=== PATIENT | male | born 1960 | race Caucasian/White ===

== ENCOUNTER → 2016-09-27 | Outpatient (CLI) | payer BC ==
[~2016-09-27] VITALS: Ht 182.9 cm; Wt 64.0 kg
[~2016-09-27] MED LIST: fluticasone INTNAS
[2016-09-27 13:28] VITALS: BP 111/73; PULSE 64; Ht 182.9 cm; Wt 64.0 kg
== END | disposition home or self-care (01) ==
LOC: C.NEUR 13:00
PROVIDERS: ATTEND Internal Medicine Pulmonary Disease
DX: G47.30 Sleep apnea, unspecified (principal)

== ENCOUNTER → 2017-05-19 | Day surgery (SDC) | payer BC ==
[2017-05-02 10:48] VITALS: BMI 27.0
[~2017-05-19] VITALS: Ht 182.9 cm; Wt 90.9 kg
[~2017-05-19] MED LIST changes: +LIDOCAINE HCL 2% 2 ML VIAL (20MG/ML) ONE; +PROPOFOL IV EMULSION 10 MG/ML 20 ML VIAL IV ONE; +SODIUM CHLORIDE 0.9% 500ML 500 ML IV ONE; +TADA10TA PO; -fluticasone INTNAS
[2017-05-19 13:59] VITALS: Ht 182.9 cm; Wt 90.9 kg
[2017-05-19 14:17] VITALS: TEMP 36.7
--- NOTE | 2017-05-19 14:35 | Endo History and Physical ---
History & Physical Date of Service: May 19, 2017. Chief Complaint: SCREENING Referring Physician: DR. THOMPSON History of Present Illness 56 yo CM who presents for screening colonoscopy. Past Medical History Reflux Past Surgical History Hx Cardiac Surgery: No Hx Internal Defibrillator: No Hx Pacemaker: No Hx Abdominal Surgery: Yes (HERNIA REPAIR) Hx of Implantable Prosthesis: No Hx Post-Op Nausea and Vomiting: No Hx Cancer Surgery: No Hx Thoracic Surgery: No Hx Orthopedic: Yes (LT KNEE ARTHROSCOPY) Hx Urinary Tract Surgery: No Family History None Social History Smoking Status: Never Smoker Hx Substance Use: No Hx Alcohol Use: No Allergies Coded Allergies: Sulfamethoxazole w/Trimethoprim (Verified Allergy, Unknown, Nauseated, 05/19/17) Current Medications Reported Home Medications Medications Dose Route/Sig Max Daily Dose Days Date Category Cialis (Tadalafil) 10 Mg Tab 10 Mg PO UD PRN 05/19/17 Reported Vital Signs Weight (Kilograms): 90.91 Height (Feet): 6 Height (Inches): 0 Date Time Temp Pulse Resp B/P (MAP) Pulse Ox O2 Delivery O2 Flow Rate FiO2 05/19/17 14:17 36.7 80 20 148/95 (112) 97 Room Air Physical Exam General Appearance: WD/WN, no apparent distress Respiratory/Chest: Auscultation: breath sounds normal Cardiovascular: Heart Auscultation: RRR Abdomen: Bowel Sounds: normal Inspection & Palpation: soft, non-distended, no tenderness, guarding & rebound Assessment and Plan Assessment: 56 yo CM who presents for screening colonoscopy. Plan: Proceed with colonoscopy.
--- NOTE | 2017-05-19 15:14 | Discharge Instructions ---
Endoscopy Patient Instructions Date / Procedure(s) Performed May 19, 2017. Colonoscopy Allergy Information Coded Allergies: Sulfamethoxazole w/Trimethoprim (Verified Allergy, Unknown, Nauseated, 05/19/17) Discharge Date / Findings May 19, 2017. Colon polyps Diverticulosis Internal hemorrhoids Medication Instructions OK to resume all medications today as prescribed Reported Home Medications Medications Dose Route/Sig Max Daily Dose Days Date Category Cialis (Tadalafil) 10 Mg Tab 10 Mg PO UD PRN 05/19/17 Reported Provider Instructions Activity Restrictions - No exercising or heavy lifting for 24 hours. - Do not drink alcohol the day of the procedure. - Do not drive a car or operate machinery until the day after the procedure. - Do not make any important decisions or sign important papers in 24 hours after the procedure. Following Day: - Return to full activity which may include returning to work/school. Diet Start your diet with liquids and light foods (jello, soup, juice, toast). Then eat your usual diet if not nauseated. Treatment For Common After Affects For mild abdominal pain, bloating, or excessive gas: - Rest - Eat lightly - Lie on right side Follow-Up Information Follow-up with DR. THOMPSON as scheduled Anesthesia Information What You Should Know You have had a procedure that required some medicine to reduce anxiety and discomfort. This treatment is called moderate sedation. After receiving the treatment, you may be sleepy, but you will be able to breathe on your own. The effects of the treatment may last for several hours. Follow these instructions along with Activity/Diet recommendations noted above: * Do NOT do anything where dizziness or clumsiness would be dangerous. * Rest quietly at home today, then you can be up and about tomorrow. * Have a responsible person stay with you the rest of today. * You may have had an I.V. today. If so, you may take the dressing off later today. Recommendations Call your doctor if: * Trouble breathing * Continuous vomiting for more than 24 hours * Temperature above 101 degrees * Severe abdominal pain or bloating * Pain not relieved by pain medicine ordered * There is increased drainage or redness from any incision * A large amount of rectal bleeding greater than 2-3 tablespoons. (If you had a polyp/s removed or have hemorrhoids, a small amount of blood - from the rectum is to be expected.) * You have any unanswered questions or concerns. IN THE EVENT OF A SERIOUS EMERGENCY, GO TO THE NEAREST EMERGENCY ROOM Your discharge instructions were prepared by provider Phil Juarez. Patient Instructions Signature Page Prashant Gonzalez Patient (or Guardian) Signature/Date: I have read and understand the instructions given to me by my caregivers. Caregiver/RN/Doctor Signature/Date: The above-named patient and/or guardian has received patient instructions on this date. + Original Patient Signature Page (only) stays with chart. Please make copy for patient.
--- NOTE | 2017-05-19 15:21 | GI REPORT ---
Procedure Date: 05/19/2017 2:48 PM Procedure: Colonoscopy Indications: Screening for colorectal malignant neoplasm Medicines: Monitored Anesthesia Care Complications: No immediate complications. Estimated Blood Loss: Estimated blood loss: none. Procedure: Pre-Anesthesia Assessment: - Prior to the procedure, a History and Physical was performed, and patient medications and allergies were reviewed. The patient's tolerance of previous anesthesia was also reviewed. The risks and benefits of the procedure and the sedation options and risks were discussed with the patient. All questions were answered, and informed consent was obtained. Prior Anticoagulants: The patient has taken no previous anticoagulant or antiplatelet agents. ASA Grade Assessment: II - A patient with mild systemic disease. After reviewing the risks and benefits, the patient was deemed in satisfactory condition to undergo the procedure. After I obtained informed consent, the scope was passed under direct vision. Throughout the procedure, the patient's blood pressure, pulse, and oxygen saturations were monitored continuously. The On-site loaner was introduced through the anus and advanced to the terminal ileum. The colonoscopy was performed without difficulty. The patient tolerated the procedure well. The quality of the bowel preparation was good. The terminal ileum, ileocecal valve, appendiceal orifice, and rectum were photographed. Findings: Four sessile polyps were found in the ascending colon. The polyps were 5 to 11 mm in size. These polyps were removed with a hot snare. Resection was complete, and retrieval was complete. To prevent bleeding after the polypectomy, two hemostatic clips were successfully placed (MR conditional). There was no bleeding at the end of the procedure. Multiple small-mouthed diverticula were found in the sigmoid colon. There was no evidence of diverticular bleeding. Non-bleeding internal hemorrhoids were found during retroflexion. The hemorrhoids were small. Impression: - Four 5 to 11 mm polyps in the ascending colon, removed with a hot snare. Resected and retrieved. Clips (MR conditional) were placed. - Diverticulosis in the sigmoid colon. There was no evidence of diverticular bleeding. - Non-bleeding internal hemorrhoids. Recommendation: - Resume previous diet. - Continue present medications. - Repeat colonoscopy for surveillance based on pathology results. - Return to primary care physician as previously scheduled. Phil Juarez DO 05/19/2017 3:20:31 PM This report has been signed electronically. Note Initiated On: 05/19/2017 2:48 PM I attest to the content of the Intraoperative Record and orders documented therein, exceptions below
--- NOTE | 2017-05-19 15:30 | Anesthesiology Progress Note ---
Anesthesia Post Op Note Date & Time May 19, 2017 at 15:30 Vital Signs Pain Intensity: 0 Vital Signs Past 12 Hours Date Time Temp Pulse Resp B/P (MAP) Pulse Ox O2 Delivery O2 Flow Rate FiO2 05/19/17 14:17 36.7 80 20 148/95 (112) 97 Room Air Notes Mental Status: alert / awake / arousable, participated in evaluation Pt Amnestic to Procedure: Yes Nausea / Vomiting: adequately controlled Pain: adequately controlled Airway Patency, RR, SpO2: stable & adequate BP & HR: stable & adequate Hydration State: stable & adequate Anesthetic Complications: no major complications apparent
[2017-05-19 15:57] VITALS: BP 125/85; PULSE 69; O2SAT 94
== END | disposition home or self-care (01) ==
LOC: C.GI 13:43
PROVIDERS: ATTEND Internal Medicine
DX: Z12.11 Encounter for screening for malignant neoplasm of colon (principal); D12.2 Benign neoplasm of ascending colon; K57.30 Diverticulosis of large intestine without perforation or abscess without bleeding; K64.8 Other hemorrhoids

== ENCOUNTER → 2017-09-12 | Outpatient (CLI) | payer BC ==
[~2017-09-12] MED LIST changes: -LIDOCAINE HCL 2% 2 ML VIAL (20MG/ML) ONE; -PROPOFOL IV EMULSION 10 MG/ML 20 ML VIAL IV ONE; -SODIUM CHLORIDE 0.9% 500ML 500 ML IV ONE
[2017-09-12 12:20] LABS: BASO % 0.5 %; BASO ABS # 0.02 K/uL (0-0.2); EOS ABS # 0.04 K/uL (0-0.5); HEMATOCRIT 40.4 % (42-52); HEMOGLOBIN 15.1 g/dL (14.0-18.0); LYMPH % 27.4 %; LYMPH ABS # 1.07 K/uL (1.2-3.4); MEAN CELL VOLUME 89.4 fL (80-100); MEAN CORPUSCULAR HEMOGLOBIN 33.4 pg (25-34); MEAN CORPUSCULAR HGB CONC 37.4 g/dl (32-36); MEAN PLATELET VOLUME 10.8 fL (7.4-10.4); MONO % 13.6 %; MONO ABS # 0.53 K/uL (0.11-0.59); NEUT % 57.5 %; NEUT ABS # 2.25 K/uL (1.4-6.5); PLATELET COUNT 113 K/uL (130-400); RED CELL DISTRIBUTION WIDTH CV 12.7 % (11.5-14.5); RED CELL DISTRIBUTION WIDTH SD 40.9 fL (36.4-46.3); WHITE BLOOD COUNT 3.91 K/uL (4.8-10.8)
[2017-09-12 12:49] LABS: ALBUMIN 3.9 gm/dl (3.4-5.0); ALT/SGPT 37 U/L (12-78); BLOOD UREA NITROGEN 17 mg/dl (7-18); CALCIUM 8.7 mg/dl (8.5-10.1); CARBON DIOXIDE 26 mmol/L (21-32); CHOLESTEROL 125 mg/dl (0-200); CREATININE 1.08 mg/dl (0.60-1.40); GLUCOSE 95 mg/dl (70-99); POTASSIUM 4.1 mmol/L (3.5-5.1); SODIUM 138 mmol/L (136-145)
[2017-09-12 12:58] LABS: ALKALINE PHOSPHATASE 74 U/L (45-117); AST/SGOT 24 U/L (15-37); LDL CHOLESTEROL CALCULATED 54 mg/dl
== END | disposition home or self-care (01) ==
LOC: C.LABBFT 10:54
PROVIDERS: ATTEND Physician Assistant Medical
DX: R42 Dizziness and giddiness (principal)

== ENCOUNTER → 2017-10-24 | Day surgery (SDC) | payer BC ==
[2017-10-10 07:37] VITALS: BMI 27.0
[~2017-10-24] VITALS: Ht 182.9 cm; Wt 90.9 kg
[~2017-10-24] MED LIST changes: +ATROPINE SULFATE 0.1 MG/ML 5ML SYR IV PRN; +EpHEDrine SULFATE INJ 50 MG/ML AMP IV PRN; +LIDOCAINE HCL 2% 2 ML VIAL (20MG/ML) ONE; +MIDAZOLAM HCL 1 MG/ML 2ML VIAL ONE; +PROPOFOL IV EMULSION 10 MG/ML 20 ML VIAL IV ONE; +RANI150T3 PO; +SODIUM CHLORIDE 0.9% 500ML 500 ML IV ONE
[2017-10-24 12:37] VITALS: Ht 182.9 cm; Wt 90.9 kg
--- NOTE | 2017-10-24 12:52 | Endo History and Physical ---
History & Physical Date of Service: Oct 24, 2017. Chief Complaint: ACID REFLUX Referring Physician: DR THOMPSON History of Present Illness 57 yo CM who presents for EGD secondary to GERD. Past Medical History Reflux Past Surgical History Hx Cardiac Surgery: No Hx Internal Defibrillator: No Hx Pacemaker: No Hx Abdominal Surgery: Yes (HERNIA REPAIR) Hx Post-Op Nausea and Vomiting: No Hx Cancer Surgery: No Hx Thoracic Surgery: No Hx Orthopedic: Yes (LT KNEE ARTHROSCOPY) Hx Urinary Tract Surgery: No Family History None Social History Smoking Status: Never Smoker Hx Substance Use: No Hx Alcohol Use: No Allergies Coded Allergies: Sulfamethoxazole w/Trimethoprim (Verified Adverse Reaction, Unknown, Nauseated, 10/24/17) Current Medications Reported Home Medications Medications Dose Route/Sig Max Daily Dose Days Date Category Zantac (Ranitidine HCl) 150 Mg Tab 150 Mg PO BID 10/10/17 Reported Cialis (Tadalafil) 10 Mg Tab 10 Mg PO UD PRN 05/19/17 Reported Vital Signs Weight (Kilograms): 90.91 Height (Feet): 6 Height (Inches): 0 Date Time Temp Pulse Resp B/P (MAP) Pulse Ox O2 Delivery O2 Flow Rate FiO2 10/24/17 12:42 36.8 74 18 141/81 (101) 97 Room Air Physical Exam General Appearance: WD/WN, no apparent distress Respiratory/Chest: Auscultation: breath sounds normal Cardiovascular: Heart Auscultation: RRR Abdomen: Bowel Sounds: normal Inspection & Palpation: soft, non-distended, no tenderness, guarding & rebound Assessment and Plan Assessment: 57 yo CM who presents for EGD secondary to GERD. Plan: Proceed with colonoscopy.
--- NOTE | 2017-10-24 13:49 | Discharge Instructions ---
Endoscopy Patient Instructions Date / Procedure(s) Performed Oct 24, 2017. EGD Allergy Information Coded Allergies: Sulfamethoxazole w/Trimethoprim (Verified Adverse Reaction, Unknown, Nauseated, 10/24/17) Discharge Date / Findings Oct 24, 2017. Reflux esophagitis s/p biopsies Medication Instructions OK to resume all medications today as prescribed Reported Home Medications Medications Dose Route/Sig Max Daily Dose Days Date Category Zantac (Ranitidine HCl) 150 Mg Tab 150 Mg PO BID 10/10/17 Reported Cialis (Tadalafil) 10 Mg Tab 10 Mg PO UD PRN 05/19/17 Reported Provider Instructions Activity Restrictions - No exercising or heavy lifting for 24 hours. - Do not drink alcohol the day of the procedure. - Do not drive a car or operate machinery until the day after the procedure. - Do not make any important decisions or sign important papers in 24 hours after the procedure. Following Day: - Return to full activity which may include returning to work/school. Diet Start your diet with liquids and light foods (jello, soup, juice, toast). Then eat your usual diet if not nauseated. Treatment For Common After Affects For mild abdominal pain, bloating, or excessive gas: - Rest - Eat lightly - Lie on right side Follow-Up Information Follow-up with DR THOMPSON as scheduled Anesthesia Information What You Should Know You have had a procedure that required some medicine to reduce anxiety and discomfort. This treatment is called moderate sedation. After receiving the treatment, you may be sleepy, but you will be able to breathe on your own. The effects of the treatment may last for several hours. Follow these instructions along with Activity/Diet recommendations noted above: * Do NOT do anything where dizziness or clumsiness would be dangerous. * Rest quietly at home today, then you can be up and about tomorrow. * Have a responsible person stay with you the rest of today. * You may have had an I.V. today. If so, you may take the dressing off later today. Recommendations Call your doctor if: * Trouble breathing * Continuous vomiting for more than 24 hours * Temperature above 101 degrees * Severe abdominal pain or bloating * Pain not relieved by pain medicine ordered * There is increased drainage or redness from any incision * A large amount of rectal bleeding greater than 2-3 tablespoons. (If you had a polyp/s removed or have hemorrhoids, a small amount of blood - from the rectum is to be expected.) * You have any unanswered questions or concerns. IN THE EVENT OF A SERIOUS EMERGENCY, GO TO THE NEAREST EMERGENCY ROOM Your discharge instructions were prepared by provider Phil Juarez. Patient Instructions Signature Page Prashant Gonzalez Patient (or Guardian) Signature/Date: I have read and understand the instructions given to me by my caregivers. Caregiver/RN/Doctor Signature/Date: The above-named patient and/or guardian has received patient instructions on this date. + Original Patient Signature Page (only) stays with chart. Please make copy for patient.
--- NOTE | 2017-10-24 13:49 | GI REPORT ---
Procedure Date: 10/24/2017 1:34 PM Procedure: Upper GI endoscopy Indications: Suspected gastro-esophageal reflux disease Medicines: Monitored Anesthesia Care Complications: No immediate complications. Estimated Blood Loss: Estimated blood loss: none. Procedure: Pre-Anesthesia Assessment: - Prior to the procedure, a History and Physical was performed, and patient medications and allergies were reviewed. The patient's tolerance of previous anesthesia was also reviewed. The risks and benefits of the procedure and the sedation options and risks were discussed with the patient. All questions were answered, and informed consent was obtained. Prior Anticoagulants: The patient has taken no previous anticoagulant or antiplatelet agents. ASA Grade Assessment: II - A patient with mild systemic disease. After reviewing the risks and benefits, the patient was deemed in satisfactory condition to undergo the procedure. After obtaining informed consent, the endoscope was passed under direct vision. Throughout the procedure, the patient's blood pressure, pulse, and oxygen saturations were monitored continuously. The Scope was introduced through the mouth, and advanced to the second part of duodenum. The upper GI endoscopy was accomplished without difficulty. The patient tolerated the procedure well. Findings: LA Grade A (one or more mucosal breaks less than 5 mm, not extending between tops of 2 mucosal folds) esophagitis with no bleeding was found. Biopsies were taken with a cold forceps for histology. The stomach was normal. The examined duodenum was normal. Impression: - LA Grade A reflux esophagitis. Biopsied. - Normal stomach. - Normal examined duodenum. Recommendation: - Resume previous diet. - Use Protonix (pantoprazole) 40 mg PO daily. - OK to use Zantac 150mg by mouth at bedtime as needed. - Await pathology results. - Return to primary care physician as previously scheduled. Phil Juarez DO 10/24/2017 1:48:54 PM This report has been signed electronically. Note Initiated On: 10/24/2017 1:34 PM I attest to the content of the Intraoperative Record and orders documented therein, exceptions below
[2017-10-24 14:20] VITALS: BP 128/80; PULSE 57; O2SAT 95
--- NOTE | 2017-10-24 14:27 | Anesthesiology Progress Note ---
Anesthesia Post Op Note Date & Time Oct 24, 2017 at 14:27 Vital Signs Pain Intensity: 0 Vital Signs Past 12 Hours Date Time Temp Pulse Resp B/P (MAP) Pulse Ox O2 Delivery O2 Flow Rate FiO2 10/24/17 14:20 57 18 128/80 (96) 95 Room Air 10/24/17 14:04 57 18 119/82 (94) 93 Room Air 10/24/17 13:49 36.0 62 16 138/94 (109) 93 Room Air 10/24/17 12:42 36.8 74 18 141/81 (101) 97 Room Air Notes Mental Status: alert / awake / arousable, participated in evaluation Pt Amnestic to Procedure: Yes Nausea / Vomiting: adequately controlled Pain: adequately controlled Airway Patency, RR, SpO2: stable & adequate BP & HR: stable & adequate Hydration State: stable & adequate Anesthetic Complications: no major complications apparent
== END | disposition home or self-care (01) ==
LOC: C.GI 12:25
PROVIDERS: ATTEND Internal Medicine
DX: K21.0 Gastro-esophageal reflux disease with esophagitis (principal); Z88.2 Allergy status to sulfonamides

== ENCOUNTER → 2017-11-04 | Outpatient (CLI) | payer BC ==
[~2017-11-04] VITALS: Ht 182.9 cm; Wt 94.1 kg
[~2017-11-04] MED LIST changes: -ATROPINE SULFATE 0.1 MG/ML 5ML SYR IV PRN; -EpHEDrine SULFATE INJ 50 MG/ML AMP IV PRN; -LIDOCAINE HCL 2% 2 ML VIAL (20MG/ML) ONE; -MIDAZOLAM HCL 1 MG/ML 2ML VIAL ONE; -PROPOFOL IV EMULSION 10 MG/ML 20 ML VIAL IV ONE; -SODIUM CHLORIDE 0.9% 500ML 500 ML IV ONE
[2017-11-04 15:42] VITALS: BP 121/73; PULSE 73; Ht 182.9 cm; Wt 94.1 kg
== END | disposition home or self-care (01) ==
LOC: C.NEUR 13:52
PROVIDERS: ATTEND Internal Medicine Pulmonary Disease
DX: G47.30 Sleep apnea, unspecified (principal)

== ENCOUNTER → 2017-12-07 | Outpatient (CLI) | payer BC ==
[~2017-12-07] MED LIST changes: +DOXY100C PO; +HYDR-5688 PO
--- NOTE | 2017-12-07 12:02 | DIAGNOSTIC IMAGING REPORT ---
[facility] CLINICAL HISTORY: SEVERE GROIN PAIN pain COMPARISON STUDY: No previous studies for comparison. FINDINGS: The soft tissues, psoas shadows, renal outlines and intestinal gas pattern appear normal. There is no evidence for bowel obstruction. No abnormal abdominal calcifications are seen. There are several pelvic calcifications which are most likely vasculature. I cannot entire exclude the possibility of the distal right ureteral calculus. IMPRESSION: Negative study overall. Several pelvic calcifications bilaterally the bulk of which are vascular. It is impossible to entirely exclude the possibility of a distal right ureteral calculus. If the patient remains symptomatic, a CT evaluation is suggested. The above report was generated using voice recognition software. It may contain grammatical, syntax or spelling errors. Electronically signed by: Tip Mojica M.D. 12/07/2017 12:01 PM Dictated Date/Time: 12/07/2017 11:59 AM
== END | disposition home or self-care (01) ==
LOC: C.RAD1850 11:28
PROVIDERS: ATTEND Physician Assistant
DX: R10.30 Lower abdominal pain, unspecified (principal)

== ENCOUNTER 2017-12-09 13:44 | Emergency (ER) | payer BC ==
[~2017-12-09] VITALS: Ht 182.9 cm; Wt 95.6 kg
[~2017-12-09 13:44] MED LIST changes: -DOXY100C PO; -HYDR-5688 PO
[2017-12-09 13:47] VITALS: TEMP 36.8; Ht 182.9 cm; Wt 95.6 kg
[2017-12-09] MEDS ORDERED: KETOROLAC TROMETHAMINE 30 MG/ML VIAL IV STA (14:06)
[2017-12-09] MEDS ORDERED: ONDANSETRON INJ 2 MG/ML 2 ML VIAL IV STA (14:06)
[2017-12-09] MEDS ORDERED: SODIUM CHLORIDE 0.9% 1000ML 1,000 ML IV ONE (14:15)
[2017-12-09] MEDS ORDERED: MoRPHine SULFATE 4 MG/ML 1 ML CARP\\VIAL IV PRN (14:15)
[2017-12-09 14:34] LABS: BASO % 0.9 %; BASO ABS # 0.03 K/uL (0-0.2); HEMOGLOBIN 14.6 g/dL (14.0-18.0); IG# 0.01 K/uL (0.00-0.02); LYMPH % 24.5 %; LYMPH ABS # 0.82 K/uL (1.2-3.4); MEAN CELL VOLUME 86.5 fL (80-100); MEAN CORPUSCULAR HEMOGLOBIN 32.4 pg (25-34); MEAN CORPUSCULAR HGB CONC 37.4 g/dl (32-36); MEAN PLATELET VOLUME 10.2 fL (7.4-10.4); MONO % 8.7 %; MONO ABS # 0.29 K/uL (0.11-0.59); NEUT % 62.6 %; PLATELET COUNT 105 K/uL (130-400); RED CELL DISTRIBUTION WIDTH CV 12.8 % (11.5-14.5); RED CELL DISTRIBUTION WIDTH SD 40.8 fL (36.4-46.3); WHITE BLOOD COUNT 3.35 K/uL (4.8-10.8)
[2017-12-09 14:54] LABS: ALBUMIN 4.1 gm/dl (3.4-5.0); CALCIUM 8.6 mg/dl (8.5-10.1); POTASSIUM 3.7 mmol/L (3.5-5.1)
[2017-12-09 14:57] LABS: TOTAL PROTEIN 6.8 gm/dl (6.4-8.2)
--- NOTE | 2017-12-09 15:05 | DIAGNOSTIC IMAGING REPORT ---
CT OF THE ABDOMEN AND PELVIS WITHOUT CONTRAST CLINICAL HISTORY: Right flank pain. COMPARISON STUDY: CT of the abdomen April 08, 2006, abdominal ultrasound January 08, 2014 and [facility] December 07, 2017. TECHNIQUE: Axial images of the abdomen and pelvis were obtained without IV contrast. Images were reviewed in the axial, sagittal, and coronal planes. A dose lowering technique was utilized adhering to the principles of ALARA. FINDINGS: Groundglass opacities within the lower lungs likely reflect atelectasis. No renal, ureteral or bladder calculi are present. There is no hydronephrosis or hydroureter. Water attenuation right renal lesions are suboptimally assessed on this unenhanced exam but likely reflect cysts. Borderline splenomegaly is noted. There are few calcified granulomas within the liver and the spleen. Unenhanced images of the adrenal glands and pancreas are normal. The caliber of small and large bowel are normal. The appendix is normal. There may be an endoscopic clip within the cecum. No pneumatosis, free air or portal venous gas is present. No suspicious osseous lesion is present. There is no lymphadenopathy or ascites. A 2.9 cm left common iliac artery aneurysm measured 2.1 cm on exam of April 08, 2016. A 2.2 cm right common iliac artery aneurysm measured [address] Caliber of the abdominal aorta is normal. IMPRESSION: 1. No urinary calculi or hydronephrosis. 2. No acute process within the abdomen or pelvis on unenhanced exam. Normal appendix. No bowel obstruction. 3. 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 2.2 cm right common iliac artery aneurysm. No rupture. Nonemergent vascular surgery consultation is recommended. Electronically signed by: Rajendra Cohen M.D. 12/09/2017 3:03 PM Dictated Date/Time: 12/09/2017 2:54 PM
--- NOTE | 2017-12-09 16:04 | DIAGNOSTIC IMAGING REPORT ---
ULTRASOUND TESTES AND SCROTUM CLINICAL HISTORY: Right testicular pain. COMPARISON STUDY: No priors. TECHNIQUE: Real-time, grayscale, and color Doppler sonography of the testes and scrotum is performed. Images are reviewed in the transverse and longitudinal planes. FINDINGS: The testes are normal in size and homogeneous in echotexture. The right testis measures 5.5 x 2.5 x 3.6 cm and the left testis measures 5.7 x 2.7 x 2.9 cm. No intratesticular mass is seen. Testicular blood flow is normal and symmetric. Normal Doppler waveforms are identified in both testes. The epididymal heads are normal in appearance. The right epididymal head measures 0.9 cm in length and the left epididymal head measures 1.1 cm in length. There is a small left-sided varicocele which measures up to 3 mm. No right-sided varicocele or hydrocele is seen. IMPRESSION: 1. Unremarkable sonographic assessment of the testes. 2. Small left-sided varicocele. Electronically signed by: Alexsander Moeller M.D. 12/09/2017 4:03 PM Dictated Date/Time: 12/09/2017 4:00 PM
[2017-12-09 17:00] VITALS: BP 126/84; PULSE 68; O2SAT 98
[2017-12-09] MEDS ORDERED: DOXY100C PO (17:01)
[2017-12-09] MEDS ORDERED: HYDR-5688 PO (17:01)
--- NOTE | 2017-12-09 19:51 | EMERGENCY ROOM VISIT NOTE ---
History First contact with patient: 13:49 Chief Complaint: KIDNEY STONE Stated Complaint: PAIN IN RIGHT KIDNEY History of Present Illness The patient is a 57 year old male who presents to the Emergency Room with complaints of right flank pain for the past 3 days. The patient states his symptoms initially began in the right testicle, but now include the right side back. The pain is a dull and persistent 7/10 with colicky episodes of 9/10 pain. The patient has not had fever, chills, chest pain, or vomiting. He will become nauseated with the pain. He does not have a history of abdominal surgery in the past. He did go to his PCP where outpatient KUB was performed and suggested a distal stone. The patient states that his discomfort worsened today, prompting him to come to the ER. The patient has been taking Aleve with only mild improvement of symptoms. He has not had kidney stones in the past. Review of Systems More than 10 systems were reviewed and otherwise negative with the exception of history of present illness. Past Medical/Surgical History GERD Family History No pertinent family history Social History Smoking Status: Never Smoker Housing Status: lives with family Current/Historical Medications Scheduled Doxycycline Hyclate (Vibramycin), 100 MG PO BID Ranitidine Hcl (Zantac), 150 MG PO BID Scheduled PRN Hydrocodone/Acetaminophen 5MG/325MG (Freehold 5MG/325MG), 1-2 TABLET PO Q6 PRN for Pain Tadalafil (Cialis), 10 MG PO UD PRN for PRN Physical Exam Vital Signs Date Time Temp Pulse Resp B/P (MAP) Pulse Ox O2 Delivery O2 Flow Rate FiO2 12/09/17 17:00 68 18 126/84 98 Room Air 12/09/17 15:01 60 17 128/83 94 12/09/17 13:47 36.8 64 18 162/82 97 Room Air Physical Exam VITALS: Vitals are noted on the nurse's note and reviewed by myself. Vital signs stable. GENERAL: Well-developed, well-nourished, white male who appears moderately uncomfortable on examination. NECK: Supple without nuchal rigidity. No lymphadenopathy. No thyromegaly. Cervical spine is nontender. HEART: Regular rate and rhythm without murmurs gallops or rubs. LUNGS: Clear to auscultation bilaterally without wheezes, rales or rhonchi. No retractions or accessory muscle use. ABDOMEN: Positive normal bowel sounds x 4. Soft, nontender, without masses or organomegaly. No guarding or rebound tenderness. No CVA tenderness. MUSCULOSKELETAL: No muscle atrophy, erythema, or edema noted. Full range of motion in all extremities. No tenderness to palpation. Normal gait. Strength 5/5 throughout. NEURO: Patient was alert and oriented to person place and time. CN II through XII grossly intact. Medical Decision & Procedures ER Provider Diagnostic Interpretation: CT OF THE ABDOMEN AND PELVIS WITHOUT CONTRAST CLINICAL HISTORY: Right flank pain. COMPARISON STUDY: CT of the abdomen April 08, 2006, abdominal ultrasound January 08, 2014 and KUB December 07, 2017. TECHNIQUE: Axial images of the abdomen and pelvis were obtained without IV contrast. Images were reviewed in the axial, sagittal, and coronal planes. A dose lowering technique was utilized adhering to the principles of ALARA. FINDINGS: Groundglass opacities within the lower lungs likely reflect atelectasis. No renal, ureteral or bladder calculi are present. There is no hydronephrosis or hydroureter. Water attenuation right renal lesions are suboptimally assessed on this unenhanced exam but likely reflect cysts. Borderline splenomegaly is noted. There are few calcified granulomas within the liver and the spleen. Unenhanced images of the adrenal glands and pancreas are normal. The caliber of small and large bowel are normal. The appendix is normal. There may be an endoscopic clip within the cecum. No pneumatosis, free air or portal venous gas is present. No suspicious osseous lesion is present. There is no lymphadenopathy or ascites. A 2.9 cm left common iliac artery aneurysm measured 2.1 cm on exam of April 08, 2016. A 2.2 cm right common iliac artery aneurysm measured [address] Caliber of the abdominal aorta is normal. IMPRESSION: 1. No urinary calculi or hydronephrosis. 2. No acute process within the abdomen or pelvis on unenhanced exam. Normal appendix. No bowel obstruction. 3. 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 2.2 cm right common iliac artery aneurysm. No rupture. Nonemergent vascular surgery consultation is recommended. ULTRASOUND TESTES AND SCROTUM CLINICAL HISTORY: Right testicular pain. COMPARISON STUDY: No priors. TECHNIQUE: Real-time, grayscale, and color Doppler sonography of the testes and scrotum is performed. Images are reviewed in the transverse and longitudinal planes. FINDINGS: The testes are normal in size and homogeneous in echotexture. The right testis measures 5.5 x 2.5 x 3.6 cm and the left testis measures 5.7 x 2.7 x 2.9 cm. No intratesticular mass is seen. Testicular blood flow is normal and symmetric. Normal Doppler waveforms are identified in both testes. The epididymal heads are normal in appearance. The right epididymal head measures 0.9 cm in length and the left epididymal head measures 1.1 cm in length. There is a small left-sided varicocele which measures up to 3 mm. No right-sided varicocele or hydrocele is seen. IMPRESSION: 1. Unremarkable sonographic assessment of the testes. 2. Small left-sided varicocele. Laboratory Results 12/09/17 14:24 Red Blood Count 4.51, Mean Corpuscular Volume 86.5, Mean Corpuscular Hemoglobin 32.4, Mean Corpuscular Hemoglobin Concent 37.4, Mean Platelet Volume 10.2, Neutrophils (%) (Auto) 62.6, Lymphocytes (%) (Auto) 24.5, Monocytes (%) (Auto) 8.7, Eosinophils (%) (Auto) 3.0, Basophils (%) (Auto) 0.9, Neutrophils # (Auto) 2.10, Lymphocytes # (Auto) 0.82, Monocytes # (Auto) 0.29, Eosinophils # (Auto) 0.10, Basophils # (Auto) 0.03 12/09/17 14:24 Test 12/09/17 13:50 12/09/17 14:24 Urine Color YELLOW Urine Appearance CLEAR (CLEAR) Urine pH 7.0 (4.5-7.5) Urine Specific [place] 1.004 (1.000-1.030) Urine Protein NEG (NEG) Urine Glucose (UA) NEG (NEG) Urine Ketones NEG (NEG) Urine Occult Blood NEG (NEG) Urine Nitrite NEG (NEG) Urine Bilirubin NEG (NEG) Urine Urobilinogen NEG (NEG) Urine Leukocyte Esterase NEG (NEG) White Blood Count 3.35 K/uL (4.8-10.8) Red Blood Count 4.51 M/uL (4.7-6.1) Hemoglobin 14.6 g/dL (14.0-18.0) Hematocrit 39.0 % (42-52) Mean Corpuscular Volume 86.5 fL (80-100) Mean Corpuscular Hemoglobin 32.4 pg (25-34) Mean Corpuscular Hemoglobin Concent 37.4 g/dl (32-36) Platelet Count 105 K/uL (130-400) Mean Platelet Volume 10.2 fL (7.4-10.4) Neutrophils (%) (Auto) 62.6 % Lymphocytes (%) (Auto) 24.5 % Monocytes (%) (Auto) 8.7 % Eosinophils (%) (Auto) 3.0 % Basophils (%) (Auto) 0.9 % Neutrophils # (Auto) 2.10 K/uL (1.4-6.5) Lymphocytes # (Auto) 0.82 K/uL (1.2-3.4) Monocytes # (Auto) 0.29 K/uL (0.11-0.59) Eosinophils # (Auto) 0.10 K/uL (0-0.5) Basophils # (Auto) 0.03 K/uL (0-0.2) RDW Standard Deviation 40.8 fL (36.4-46.3) RDW Coefficient of Variation 12.8 % (11.5-14.5) Immature Granulocyte % (Auto) 0.3 % Immature Granulocyte # (Auto) 0.01 K/uL (0.00-0.02) Anion Gap 7.0 mmol/L (3-11) Est Creatinine Clear Calc Drug Dose 96.6 ml/min Estimated GFR () 95.7 Estimated GFR (Non- 82.6 BUN/Creatinine Ratio 14.9 (10-20) Calcium Level 8.6 mg/dl (8.5-10.1) Total Bilirubin 0.7 mg/dl (0.2-1) Aspartate Amino Transf (AST/SGOT) 25 U/L (15-37) Alanine Aminotransferase (ALT/SGPT) 32 U/L (12-78) Alkaline Phosphatase 77 U/L (45-117) Total Protein 6.8 gm/dl (6.4-8.2) Albumin 4.1 gm/dl (3.4-5.0) Globulin 2.7 gm/dl (2.5-4.0) Albumin/Globulin Ratio 1.5 (0.9-2) Lipase 311 U/L (73-393) Medications Administered Medications (Trade) Dose Ordered Sig/Janee Route Start Time Stop Time Status Last Admin Dose Admin Sodium Chloride 1,000 ml @ 999 mls/hr Q1H1M ONCE IV 12/09/17 14:15 12/09/17 15:15 DC 12/09/17 14:38 999 MLS/HR Ondansetron HCl (Zofran Inj) 4 mg NOW STAT IV 12/09/17 14:06 12/09/17 14:08 DC 12/09/17 14:36 4 MG Ketorolac Tromethamine (Toradol Inj) 30 mg NOW STAT IV 12/09/17 14:06 12/09/17 14:08 DC 12/09/17 14:40 30 MG Morphine Sulfate (MoRPHine SULFATE INJ) 4 mg Q30M PRN IV 12/09/17 14:15 12/09/17 18:03 DC 12/09/17 14:38 4 MG ED Course Physical exam and history were performed. Nursing notes, EMR, and Medication List were personally reviewed. Patient appears to have right flank pain radiating into his right side testicle for the past several days. The patient had outpatient x-rays performed 2 days ago that suggested a distal stone. IV access was established and labs were obtained. The patient was hydrated and medicated as above. CT scan of the abdomen and pelvis was performed. The patient's blood work is as above and was reviewed. He does not have a significantly elevated white blood cell count, gross anemia, bandemia, or significant electrolyte imbalance. Lipase and transaminases are not diagnostic. Urine is without obvious infection. CT scan is as above and is without obvious acute findings. He does have an incidental finding of nonemergent iliac aneurysm that appears to be slowly increasing in size when compared to CT of 2016. He does not have rupture or physical exam findings that would correlate with this being the cause of his discomfort. Because of his persistent discomfort and nonemergent CT scan I discussed the case with my attending physician, and we elected to perform ultrasound of the testicle. Ultrasound does not show significant acute process such as torsion or infection. The patient was reevaluated multiple times throughout the course of his stay. He does feel better with pain medication, and did not have any worsening of his symptoms while here in the department. Clinically he appears well for discharge home. I suspect that he may have passed a distal stone recently, and has residual discomfort from doing so. The patient and I had a lengthy discussion regarding options of care. I will discharge him home with a course of pain medication. He will also be given a short course of doxycycline to cover for any testicular infection symptoms. The patient will need to follow with his primary care physician on Tuesday or Tuesday after the weekend. He was certainly invited back to the ER with any new, worsening, or concerning symptoms. The chart was completed utilizing [employer] Speech Voice Recognition Software. Grammatical errors, random word insertions, pronoun errors, and incomplete sentences are an occasional consequence of this system due to software limitations, ambient noise, and hardware issues. Any formal questions or concerns about the content, text, or information contained within the body of this dictation should be directly addressed to the provider for clarification. . Medical Decision Differential diagnosis: Etiologies such as renal colic, appendicitis, diverticulitis, mesenteric ischemia, aortic pathology, infections, inflammatory bowel disease, PUD, biliary pathology, UTI, as well as others were entertained. Impression Primary Impression: Right flank pain Departure Information Prescriptions Doxycycline Hyclate (VIBRAMYCIN) 100 Mg Cap 100 MG PO BID for 10 Days, #20 CAP Prov: Ochoa Villarreal PA-C 12/09/17 Hydrocodone/Acetaminophen 5MG/325MG (Freehold 5MG/325MG) Tab 1-2 TABLET PO Q6 Y for Pain, #15 TAB For Initial Treatment Prov: Ochoa Villarreal PA-C 12/09/17 Referrals Mick Dewitt M.D. (PCP) Patient Instructions [facility]
== END 2017-12-09 17:20 | disposition home or self-care (01) ==
LOC: C.EDB 13:45
DX: R10.9 Unspecified abdominal pain (principal); K21.9 Gastro-esophageal reflux disease without esophagitis; Z79.899 Other long term (current) drug therapy

== ENCOUNTER 2021-11-04 08:43 | Inpatient (IN) ==
--- NOTE | 2021-10-29 08:44 | PAT Medication Instructions ---
Medication Instructions Date of Service October 29, 2021 Home Medications Medication Instructions Recorded pantoprazole 40 mg tablet,delayed 40 mg PO QAM #30 tab 03/02/21 release tadalafil 5 mg tablet 5 mg PO Q2D #30 tab 08/31/21 loratadine 10 mg tablet (Claritin) 10 mg PO HS aspirin 81 mg tablet,delayed release 81 mg PO QAM pantoprazole 40 mg tablet,delayed release 40 mg PO QAM tadalafil 5 mg tablet 5 mg PO Q2D citalopram 10 mg tablet (Celexa) 10 mg PO QAM Continue as directed tadalafil 5 mg tablet 5 mg PO Q2D ASK your prescriber and surgeon aspirin 81 mg tablet,delayed release 81 mg PO QAM Take morning of surgery With a small sip of water, OTHERWISE NOTHING TO EAT OR DRINK AFTER MIDNIGHT: pantoprazole 40 mg tablet,delayed release 40 mg PO QAM citalopram 10 mg tablet (Celexa) 10 mg PO QAM Take evening before surgery loratadine 10 mg tablet (Claritin) 10 mg PO HS Other Notes If you have any questions please call us at [phone] or [phone] or [phone] or [phone]
--- NOTE | 2021-11-02 13:33 | Anesthesiology Consultation ---
Date of Service November 02, 2021 Assessment & Plan (1) Encounter for pre-operative examination: COVID screening: Per assessment on 11/02: Travel screen negative, no known COVID- 19 positive contacts or current COVID-19 related symptoms. Pt vaccinated. Preop COVID testing being done at [facility] 11/02/21. Awaiting results. Chart Review Chart Review: Acceptable Risk for Surgery and Patient seen in Pre Admission Testing Teaching & Discussion Pre-Anesthesia Teaching/Discussion Notes: Instructed NPO after midnight before surgery,except medications with 15 cc of water. Medication instructions provided according to the [facility] guidelines. History Surgery Operation Date: 11/04/21 12:10 Proposed Procedures p Endovascular Repair Bilateral Iliac Artery Aneurysm - Moustapha Ponce MD Height/Weight Height: 6 ft Weight: 97.1 kg Allergies Allergy/AdvReac Type Severity Reaction Status Date / Time Bactrim AdvReac Unknown Nauseated Verified 10/24/17 12:35 sulfamethoxazole AdvReac Unknown Nauseated Verified 10/27/21 10:45 trimethoprim AdvReac Unknown Nauseated Verified 10/27/21 10:45 Medications Home Medications Medication Instructions Recorded Confirmed Last Taken loratadine 10 mg tablet (Claritin) 10 mg PO HS 04/03/19 10/27/21 11/24/20 aspirin 81 mg tablet,delayed 81 mg PO QAM 09/13/20 10/27/21 11/19/20 release pantoprazole 40 mg tablet,delayed 40 mg PO QAM #30 tab 03/02/21 10/27/21 Unknown release tadalafil 5 mg tablet 5 mg PO Q2D #30 tab 08/31/21 10/27/21 Unknown citalopram 10 mg tablet (Celexa) 10 mg PO QAM 10/27/21 10/27/21 Unknown Past Medical History Medical History Anxiety Depression GERD (gastroesophageal reflux disease) Controlled Herpes zoster without complication 3+ years ago History of COVID-19 Dx 09/07/20 > symptoms at time: Head cold, loss of taste and smell > resolved except residual loss of smell Iliac artery aneurysm Under surveillance by [facility] vascular every 6 months Sleep apnea CPAP Thrombocytopenia Chronic, baseline platelets in the low 100's Exercise / Class Metabolic Activity II 4-5 Yardwork/Stairs/Walk up hill Past Family History Family History Father Lumbar canal stenosis Alcohol abuse Hypertension Mother Diabetes Hyperlipemia Son FHx: suicide Other DVT of leg (deep venous thrombosis) No family history of adverse response to anesthesia Past Surgical History Surgical History History of colonoscopy History of hernia repair right inguinal Past Anesthesia History No Hx of Anesthesia Complications and No Family Hx of Anesthesia Complications History of PONV No Hx of PONV and Hx of Motion Sickness Social History Smoking Status: Never smoker Do You Dip or Chew Tobacco: No Hx Alcohol Use: No Hx Substance Use: No substance use type: does not use Review of Systems Patient denies chest pain, shortness of breath, dyspnea on exertion, fever, chills, cough, wheezing, palpitations. Physical Exam Vital Signs VITALS BP 119/79 P 67 TEMP 98.1 SP02 96%RA RESP 16 PHYSICAL Full cervical extension range of motion. Full TMJ range of motion. TMD 3.5 finger breaths Mallampati Score 3 Dentition: intact, several caps Lungs: clear throughout to auscultation Cardiac: regular rate and rhythm, no murmurs noted Spine: normal Carotid arteries: negative bruit Extremities: no edema Lab Results Anesthesia Preop Results Results Anesthesia Widget: WBC 3.98 K/uL (4.8-10.8) L 11/02/21 Hgb 14.2 g/dL (14.0-18.0) 11/02/21 Hct 38.9 % (42-52) L 11/02/21 Plt 115 K/uL (130-400) L 11/02/21 Na 140 mmol/L (136-145) 11/02/21 K 3.7 mmol/L (3.5-5.1) 11/02/21 Cl 110 mmol/L (98-107) H 11/02/21 CO2 23 mmol/L (21-32) 11/02/21 BUN 13 mg/dl (6-23) 11/02/21 Creat 0.95 mg/dl (0.6-1.4) 11/02/21 Glucose Level 78 mg/dl (70-99(Fasting)) 11/02/21 PT 10.4 Seconds (9.0-12.0) 11/02/21 PTT 25.4 Seconds (21.0-31.0) 11/02/21 INR 1.0 (0.9-1.1) 11/02/21 TSH 2.216 uIu/ml (0.300-4.500) 09/22/21 HA1c 5.0 % (4.5-5.6) 09/28/21 Blood Type AB Positive 11/02/21 Antibody Screen NEGATIVE 11/02/21 Lab Comments: Chronic hx of leukopenia- at baseline. Testing Electrocardiogram Date: 11/02/21 NSR at 60bpm. LAFB. No significant review compared to 09/13/20 per alum plant operator review. Chest X-Ray Date: 11/02/21 Findings: + NAD Other Testing Abd/Pelvis CTA (10/08/21): Slight increase in size of the 3.3 cm distal left common iliac artery aneurysm. This extends to the bifurcation of the external/internal iliac arteries. No significant change in the 2.3 cm distal right common iliac artery aneurysm. No evidence for abdominal aortic aneurysm. Stable partially thrombosed 2 cm proximal right internal iliac artery aneurysm.
[~2021-11-04 08:43] MED LIST changes: +CEFAZOLIN 2,000 MG/15 ML SYR IV SCH; +LACTATED RINGER'S 1,000 ML IV SCH; -RANI150T3 PO; -TADA10TA PO
[2021-11-04] MEDS ORDERED: DEXAMETHASONE SOD INJ 4 MG/ML VIAL ONE (08:55)
[2021-11-04] MEDS ORDERED: PROPOFOL IV EMULSION 10 MG/ML 20 ML VIAL IV ONE (08:55)
[2021-11-04] MEDS ORDERED: fentaNYL citrate 100 MCG/2 ML VIAL ONE ×2 (08:55→15:28)
[2021-11-04] MEDS ORDERED: MIDAZOLAM HCL 1 MG/ML 2ML VIAL ONE (08:55)
[2021-11-04] MEDS ORDERED: ROCURONIUM BROMIDE 10 MG/ML 5 ML VIAL IV ONE ×3 (08:55→15:04)
[2021-11-04] MEDS ORDERED: ONDANSETRON INJ 2 MG/ML 2 ML VIAL ONE ×2 (08:55→16:16)
--- NOTE | 2021-11-04 12:56 | History & Physical Report ---
Date of Service November 04, 2021 History of Present Illness Primary Care Provider: Mick Dewitt MD Chief Complaint rm#6 here for f/u post CTA. History of Present Illness I the pleasure of seeing Prashant today for follow-up for his iliac aneurysms. As you know he is a 61-year-old male who has enlarging of his left common iliac artery aneurysm. We recommended CT angiography and he returns today for results. Physical Exam Vitals & Measurements HR: 64 (Monitored) BP: 124/80 SpO2: 98% Input and Output - Last 24 hours (Last 8 hours) No I/O Data Found: On exam he is awake alert oriented x3. His blood pressure is 124/80. He has normal pulses in both upper and lower extremities. Lungs are clear. Heart irregular rate and rhythm. Abdominal exam is benign without any aneurysmal dilatation of the aorta. CT angiogram shows a left common iliac artery which is now 3.6 cm in size in the right common iliac artery which is 2.5 in size. Assessment/Plan 1. Aneurysm of iliac artery Full these aneurysms are amenable to endovascular repair. Left side will be repaired with a branched device preserving the internal iliac artery. On the right side the internal iliac has a partially thrombosed aneurysm just beyond its origin and this will need coiling followed by repairing the aneurysm with a straight graft. The patient understood the risks options benefits agreed to have this procedure. We will keep you informed as to his results. Thank you very much for letting us participate in the care of this patient. Sincerely, Edgar Ponce MD Problem List/Past Medical History Ongoing Acute pharyngitis Allergic rhinitis Aneurysm of left iliac artery Atypical chest pain Depression Dermatosis Diverticulosis Dizziness Dyslipidemia Esophagitis Fatigue GERD (gastroesophageal reflux disease) Hemorrhoids, internal Leukopenia Male erectile disorder Nausea and vomiting Severe right groin pain Shingles (herpes zoster) polyneuropathy Sleep apnea Thrombocytopenia Tubular adenoma Viral upper respiratory tract infection with cough Historical No qualifying data Procedure/Surgical History Herniorrhaphy (1997) Medications Inpatient No active inpatient medications Home citalopram 20 mg oral tablet, 20 mg= 1 tab, PO, Daily Claritin 10 mg oral tablet, 10 mg= 1 tab, PO, Daily, PRN pantoprazole 40 mg oral delayed release tablet, 40 mg= 1 tab, PO, Daily tadalafil 5 mg oral tablet, 5 mg= 1 tab, PO, Daily, PRN Allergies Bactrim (unknown) Social History Smoking Status Never smoked cigarettes Tobacco - Denies Tobacco Use Never smoker Family History Diabetes...: Mother. Hypertension: Mother. Signature Line Electronic Signature on File Moustapha Ponce MD Author Signature Dt/Tm: 10/12/2021 03:38 PM Financial Management Consultant [facility] [place] [address], [address] [place] [address] EJS Result Type: .Outpt Ltr Date of Service: October 12, 2021 15:38 EST Authorization Status: Final Subject: Consult Note Author or Import Date: MD Ponce Eugene J on October 12, 2021 15:38 EST Verified By: MD Ponce Eugene J on October 12, 2021 15:38 EST Encounter info: [id number], [facility], Clinic, 10/12/2021 - 10/12/2021 Allergies Allergy/AdvReac Type Severity Reaction Status Date / Time Bactrim AdvReac Unknown Nauseated Verified 10/24/17 12:35 sulfamethoxazole AdvReac Unknown Nauseated Verified 11/04/21 09:01 trimethoprim AdvReac Unknown Nauseated Verified 11/04/21 09:01 Home Medications Medication Instructions Recorded Confirmed Type loratadine 10 mg tablet (Claritin) 10 mg PO HS 04/03/19 11/04/21 History aspirin 81 mg tablet,delayed 81 mg PO QAM 09/13/20 11/04/21 History release pantoprazole 40 mg tablet,delayed 40 mg PO QAM #30 tab 03/02/21 11/04/21 Rx release tadalafil 5 mg tablet 5 mg PO Q2D #30 tab 08/31/21 11/04/21 Rx citalopram 10 mg tablet (Celexa) 10 mg PO QAM 10/27/21 11/04/21 History Past Med/Surg History Medical History Anxiety Depression GERD (gastroesophageal reflux disease) Controlled Herpes zoster without complication 3+ years ago History of COVID-19 Dx 09/07/20 > symptoms at time: Head cold, loss of taste and smell > resolved except residual loss of smell Iliac artery aneurysm Under surveillance by [facility] vascular every 6 months Sleep apnea CPAP Thrombocytopenia Chronic, baseline platelets in the low 100's Surgical History History of colonoscopy History of hernia repair right inguinal Family History Father Lumbar canal stenosis Alcohol abuse Hypertension Mother Diabetes Hyperlipemia Son FHx: suicide Other DVT of leg (deep venous thrombosis) No family history of adverse response to anesthesia Social History Smoking Status: Never smoker Second Hand Exposure: No; Do You Dip or Chew Tobacco: No; Tobacco Cessation Education Requested by Patient: No Hx Alcohol Use: No Hx Substance Use: No Preferred Language: Hungarian Communication Ability: Effective Fish Agent Required: No Beliefs That Will Affect Care: None marital status: Current Living Situation: Spouse current occupational status: employed current occupation: [employer] Other Information That Helps Us Care for You: No Feels Safe at Home: Yes Safety Concerns: Feels Safe At This Time Assistive Devices: Contacts Results & Data ([facility]) Vital Signs (Past 12 Hours) Vital Signs Temp Pulse Resp BP Pulse Ox 11/04/21 09:11 36.6 C 66 20 152/98 H 94
[2021-11-04] MEDS ORDERED: HYDROmorphone INJ 1 MG/ML SYRINGE IV PRN (13:51)
[2021-11-04] MEDS ORDERED: ATROPINE SULFATE 0.1 MG/ML 10ML SYR IV PRN (13:51)
[2021-11-04] MEDS ORDERED: ONDANSETRON INJ 2 MG/ML 2 ML VIAL IV PRN ×2 (13:51→19:54)
[2021-11-04] MEDS ORDERED: ePHEDrine sulfate 50 MG/ML AMP IV PRN (13:51)
[2021-11-04] MEDS ORDERED: fentaNYL citrate 100 MCG/2 ML VIAL IV PRN (13:51)
--- NOTE | 2021-11-04 13:55 | Procedure Note ---
Procedure Note Date of Service November 04, 2021 Note Radial arterial line placed in [facility] in preparation for bilateral iliac aneurysm repair with Dr. Ponce. Left wrist prepped with chlorhexidine and draped with sterile towels. Site infiltrated with 0.5 cc of 1% lidocaine. 20 G angiocath placed under sterile technique utilizing sterile gloves, surgical hats and masks. Catheter threaded using seldinger technique with return of pulsatile, bright red blood. Site covered with occlusive dressing and taped in place. Waveform consistent with correct arterial placement. After placement, fingers of procedural hand had normal perfusion. Patient tolerated procedure well without complications. Anna Leung MD, PhD Anesthesiologist Coding
[2021-11-04] MEDS ORDERED: HEPARIN SOD (PORCINE) 1000 UNIT/ML ONE ×2 (14:00→14:20)
[2021-11-04] MEDS ORDERED: PHENYLEPHRINE HCL 10 MG/ML VIAL ONE (14:00)
[2021-11-04] MEDS ORDERED: ePHEDrine sulfate 50 MG/ML SYR ONE (14:00)
[2021-11-04] MEDS ORDERED: SUGAMMADEX SODIUM 200 MG/2 ML VIAL IV ONE (14:13)
[2021-11-04] MEDS ORDERED: ARISTA ABSORBABLE HEMOSTAT 3GM TOP ONE (15:56)
[2021-11-04] MEDS ORDERED: GLYCOPYRROLATE 0.2 MG/ML VIAL ONE (15:57)
[2021-11-04] MEDS ORDERED: NEOSTIGMINE METHYLSULFATE 1 MG/ML 10ML VIAL ONE (15:57)
[2021-11-04] MEDS ORDERED: VISIPAQUE IV PRN (15:58)
--- NOTE | 2021-11-04 16:14 | Post Operative Brief Note ---
Immediate Post Op Note v1 Date of Surgery November 04, 2021 Pre & Post Diagnosis Operation Date: 11/04/21 11:20 Pre-Op Diagnosis: Bilateral Iliac Aneurysms Post-Op Diagnosis: Bilateral Iliac Aneurysms I identified the patient and participated in the time-out.: Yes Procedure Operation Date: 11/04/21 11:20 Actual Procedures p Percutaneous Endovascular Bilateral Iliac Aneurysm Repair, Ultrasound Localization of Bilateral Femoral Arteries, Mechanical Closure of Bilateral Femoral Arteries (Bilateral) - Moustapha Ponce MD Surgeon Moustapha Ponec MD Bpm Analyst MD Hien Estimated Blood Loss 50 Findings Consistent with Post-Op Diagnosis Drains Brewster Catheter Anesthesia Type General Complications none Disposition Accompanied Patient To Recovery: No Disposition: Recovery Room
[2021-11-04 16:45] LABS: Hematocrit (blood only) 39.8 % (42-52); Hemoglobin 14.6 g/dL (14.0-18.0)
--- NOTE | 2021-11-04 17:09 | Anesthesiology Progress Note ---
Date of Service November 04, 2021 Anesthesia Post Procedure Vital Signs Vital Signs: Temp Pulse Pulse Resp BP Pulse Ox 11/04/21 17:00 79 13 156/96 H 94 11/04/21 16:50 75 16 150/91 H 97 11/04/21 16:40 78 22 157/95 H 98 11/04/21 16:31 36.6 C 78 16 155/98 H 98 11/04/21 09:11 36.6 C 66 20 152/98 H 94 Transfer of Care Handoff Completed per policy Notes Mental Status: alert / awake / arousable and participated in evaluation Patient Amnestic to Procedure: Yes Nausea / Vomiting: adequately controlled Pain: adequately controlled Airway Patency, RR, SpO2: stable & adequate BP & HR: stable & adequate Hydration State: stable & adequate Anesthetic Complications: no major complications apparent and Pt Satisfied with anesthetic care
[2021-11-04] MEDS ORDERED: MoRPHine SULFATE 4 MG/ML 1 ML CARP\\VIAL IV PRN (19:54)
[2021-11-04] MEDS ORDERED: oxyCODONE/ACETAMINOPHEN 5mg/325mg TAB PO PRN (19:54)
[2021-11-04] MEDS: D5W AND 1/2NSS 1,000 ML IV SCH (20:06)
[2021-11-04] MEDS: ceFAZolin 2000MG 2,000 MG/15 ML SYR IV SCH (21:07)
[2021-11-04] MEDS: TADALAFIL~ORDER AWAITING ACTION SCH (21:08)
[2021-11-04] MEDS: LORATADINE 10 MG TAB PO SCH (22:40)
[2021-11-05] MEDS: TADALAFIL~ORDER AWAITING ACTION SCH ×3 (01:03→15:55)
[2021-11-05] MEDS: D5W AND 1/2NSS 1,000 ML IV SCH ×3 (04:06→21:15)
[2021-11-05] MEDS: ceFAZolin 2000MG 2,000 MG/15 ML SYR IV SCH (05:01)
[2021-11-05] MEDS: PANTOprazole 40 MG TAB PO SCH (07:19)
[2021-11-05 07:23] LABS: Hematocrit (blood only) 37.8 % (42-52); Hemoglobin 13.9 g/dL (14.0-18.0)
[2021-11-05 07:49] LABS: BUN Creatinine Ratio 15.1 (10-20); Calcium 8.5 mg/dl (8.5-10.1); Creatinine Clr Calc Pharmacy 97.8 ml/min; Est GFR (African American) 107.7 ml/min; Est GFR (Non-African American) 92.9 ml/min; Potassium 3.7 mmol/L (3.5-5.1)
[2021-11-05] MEDS: ASPIRIN 81 MG ECTAB PO SCH (08:08)
[2021-11-05] MEDS: CITALOPRAM 20 MG TAB PO SCH (08:08)
--- NOTE | 2021-11-05 09:03 | Procedure Note ---
Angiogram Post Procedure Fluoroscopy Time (minutes): 25.6 Radiation (mGy): 663.9 Post Operative Report Pre & Post Diagnosis Operation Date: 11/04/21 11:20 Pre-Op Diagnosis: Bilateral Iliac Aneurysms Post-Op Diagnosis: Bilateral Iliac Aneurysms I identified the patient and participated in the time-out.: Yes Procedure Operation Date: 11/04/21 11:20 Actual Procedures p Percutaneous Endovascular Bilateral Iliac Repair, Ultrasound Localization of Bilateral Femoral Arteries, Mechanical Closure of Bilateral Femoral Arteries (Bilateral) - Moustapha Ponce MD Surgeon Moustapha Ponce MD Order Entry Administrator MD Hien Estimated Blood Loss 50 Findings Consistent with Post-Op Diagnosis Specimens none Anesthesia Type General Complications none Disposition Accompanied Patient To Recovery: No Disposition: Recovery Room Indications Prashant Gonzalez is a 61 year old male with bilateral common iliac artery aneurysms which are amenable to endovascular repair. We discussed with him that Left side will be repaired with a branched device preserving the internal iliac artery. On the right side we will plan to place a straight graft. The patient understood the risks options benefits agreed to have this procedure. Description of Procedure The patient was taken to the operating suite and placed in the supine position. He was placed under general anesthesia. The bilateral groins were prepped and draped in the usual sterile fashion. A team timeout was performed. Under ultrasound guidance the right common femoral artery was accessed with an 18G Cook needle. A J-wire was advanced through the needle. A small incision was made in the skin around the entry site of the needle. The needle was removed and exchanged for a 5F short sheath. The 5F sheath was removed and two proglide perclose devices were pre-deployed in the artery at the 10 o'clock and 2 o'clock positions. A short 8F sheath was then placed. These same steps were then repeated for percutaneous access and preclosure of the left common femoral artery. An angled glidewire was advanced through the sheath on the right side. Over the wire a kumpe catheter was advanced into the distal thoracic aorta. The glidewire was exchanged for a drew wire (0.035 x 185cm). The catheter was removed. The short 8F sheath was removed and exchanged for a [id number] [place] dryseal sheath. The sheath was advanced into the proximal right common iliac artery. On the left an angled glidewire was advanced through the 8F sheath. Over the wire a kumpe catheter was advanced into the distal thoracic aorta. The glidewire was exchanged for a drew wire. The catheter was removed. The short 8F sheath was removed, and the dilator from the 12F sheath was used to dilate the tract, then a 16x33 [place] dryseal sheath was advanced into the proximal left common iliac artery. Hand injection through the right sided sheath was performed to delineate the aortic and iliac bifurcations. The bilateral common iliac arteries were again demonstrated. The infrarenal aorta was relatively normal in appearance and was not aneurysmal. Through the sheath on the left side an angled glidewire (0.035 x 180cm) was advanced alongside the drew wire. Through the sheath on the left side, the main body of the iliac branch device ([place] excluder 23x14.5x10) was advanced, with the main body component over the drew wire and the pre-loaded hypogastric limb over an angled glidewire (0.035 x 180cm). The device was positioned with its proximal aspect in the proximal common iliac artery on the left. From the right side an Amplatz snare was advanced (0.052 x 25 x 120). This was used to snare the glidewire that was coming up from the left, and the glidewire was pulled through the right sided sheath. Hand injection from the right sided sheath was performed to delineate the aortic bifurcation and the left iliac bifurcation. The main body of the device was positioned in the proximal left common iliac artery, just distal to the aortic bifurcation, ensuring that the main body remained above the internal iliac artery on this side. The device was deployed until the gate of the internal iliac limb was opened. Then, the sheath from the right was advanced through the internal iliac artery gate over the glidewire, with tension being held on the wire from both sides. A kumpe catheter and angled glidewire were used to access the internal iliac artery from the right sided sheath and these were advanced into a large hypogastric branch. The wire was exchanged for an Amplatz stiff straight wire ([id number]). Over the amplatz wire the internal iliac artery limb ([place] excluder 16x14.5x7) was advanced and positioned with appropriate overlap at the gate of the main body in its proximal aspect and with adequate seal zone in the internal iliac artery. This was deployed, then balloon angioplasty within the stent was performed with an Jefferson [id number] balloon along its length. Hand injection through the sheath was performed which showed the stent to be in appropriate position with no endoleak from the distal fixation. From the left side the [place] excluder iliac beach attendant (16x14.5x7) was advanced over the drew wire. This was positioned with appropriate overlap at the gate of the main body in its proximal aspect and with adequate seal zone in the external iliac artery. This was deployed, then balloon angioplasty within this stent was performed with an Jefferson [id number] balloon. Then, the proximal fixation of the main body was ballooned with a Q50 balloon to ensure good stent apposition. On the right side we pulled our sheath back so that it was in the right iliac system and the contralateral limb ([place] excluder 16 x 20x9.5) was advanced and deployed so that its proximal aspect was just below the aortic bifurcation and its distal aspect was above the iliac bifurcation. This was ballooned with a Q50 balloon. Power injection was used to perform angiography and this demonstrated no type I or III endoleaks but we did note that the main body on the left was a little more distal in the common iliac artery than we had wanted, so the decision was yanick to place a proximal extension here. A [place] 26x4.5 conformable cuff was placed and advanced to just below the aortic bifurcation. This was deployed and then balloon angioplasty with Q50 balloon was performed. Completion angiography demonstrated patency of the internal iliacs with no endoleaks identified. Sequentially the wires and sheaths were removed from each side and the preloaded perclose devices were deployed. Manual pressure was held for 15 minutes. Hemostasis was obtained. No hematoma was noted. Distal signals were intact. Steri strips were placed over the access sites. Pressure dressing was placed over the access sites. The patient tolerated the procedure well and without immediate complication. He was taken to the recovery room in satisfactory condition. All needle, sponge, and instrument counts were correct at the conclusion of the case. Dr. Ponce was present and scrubbed for the entirety of the procedure. I attest to the content of the Intraoperative Record and any orders documented therein. Any exceptions are noted below.
[2021-11-05] MEDS ORDERED: OPTIRAY 320 125ml IV ONE (12:59)
--- NOTE | 2021-11-05 13:22 | CT Scan Report ---
CT angio abd pelvis wo/w con CLINICAL HISTORY: post endograft with abd pain. Popping and pain in the right groin. TECHNIQUE: Multidetector row helical CT of the abdomen and pelvis was performed, following intravenou s administration of iodinated contrast. No oral contrast was administered. Automated dose lowering te chniques and/or adjustment according to patient size were utilized for this exam. Coronal and sagitta l reformations were obtained. MIP and 3D volume rendered reconstructions were obtained. Comparison: Comparison is made to CT abdomen pelvis 10/08/2021 FINDINGS: Lower chest: Bibasilar atelectasis versus scarring is seen. Liver: Unremarkable. No focal lesions are seen. Gallbladder and biliary tree: Layering radiodense material is seen in the dependent portion of the ga llbladder which may represent sludge versus stones. No intra- or extrahepatic biliary ductal dilation . Pancreas: Unremarkable, no focal lesions. Spleen: Unremarkable. Adrenals: Unremarkable. Kidneys and ureters: Exophytic cyst is seen on the right, unchanged. Bladder: Brewster catheter is seen. Reproductive organs: Unremarkable. Bowel: Prominent gastric distention is seen. Fluid filling is also noted in the distal esophagus. Lymph nodes Retroperitoneal: Unremarkable. Mesenteric: Unremarkable. Pelvic: Unremarkable. Peritoneum: Normal. Abdominal wall: Unremarkable. Bones: Pars defects are seen at L5-S1 with grade [address] angiogram: Bilateral iliac stents are seen. The left graft extends into the internal and extra maureen ac arteries, the right covers only the common iliac artery. There is again noted is mural thrombus in the right internal iliac artery. No significant atherosclerosis is seen. The origins of the celiac axis, superior mesenteric, inferior mesenteric and bilateral renal arteries are patent. IMPRESSION: No evidence of endoleak is seen. There is soft tissue stranding in the bilateral groin. A small amoun t of subcutaneous emphysema is seen in the right groin. This is favored to be postprocedural, however clinical correlation is recommended. ACT 112: Negative or not required by law. Electronically signed by: Mikal Bernard M.D. 11/05/2021 1:20 PM
[2021-11-05] MEDS ORDERED: ONDANSETRON INJ 2 MG/ML 2 ML VIAL IV ONE (14:29)
[2021-11-05] MEDS ORDERED: SIMETHICONE 80 MG CHEW PO ONE (14:30)
--- NOTE | 2021-11-05 15:49 | Surgery Progress Note ---
Date of Service November 05, 2021 Assessment & Plan (1) Iliac artery aneurysm, left: Plan: Pt doing well post op day #1 from endovascular repair of iliac aneurysms. CTA done today after abd pain/vomiting began demonstrates no extravasation or endoleak. Will continnue to monitor, increase activity, and possible d/c home tomorrow if feeling better. Admission and Anticipated Discharge Date Admission Date: November 04, 2021 Subjective 61 yo m POD #1 after percutaneous endovascular iliac artery aneurysm repair, seen in f/u today. Pt has been having nausea and dry heaves intermittently today. Ate breakfast, but nothing since. Zofran helping. Having some abd pain with the dry heaving. No dizziness, chest pain, SOB, leg pain, other new c omplaints. Review of Systems Review of Systems: All systems reviewed & are unremarkable except as noted in HPI & below Physical Exam Constitutional: WD/WN, vitals as above Respiratory: normal respiratory effort, lungs clear to auscultation Auscultation: + diminished lung sounds Cardiovascular: Rate/Rhythm: regular rate and regular rhythm Vessels: posterior tibial pulses present, dorsalis pedis pulses present and radial pulses present; + abnormal peripheral pulses Extremities: normal capillary refill; no edema Gastrointestinal (Abdomen): Inspection/Auscultation: abdomen normal to inspection and normal bowel sounds Percussion/Palpation: + abdomen tender (mild epigastric) Musculoskeletal: no cyanosis or clubbing, extremities motor strength 5/5 Skin: no rashes, warm and dry Neurologic: moves all extremities and awake; no focal motor deficits and not confused Psychiatric: A+Ox3, euthymic affect Results & Data ([facility]) Vital Signs (Past 12 Hours) Vital Signs Temp Pulse Pulse Pulse Resp BP Pulse Ox 11/05/21 15:20 36.3 C L 74 16 133/88 96 11/05/21 14:55 71 11/05/21 13:05 71 16 137/2 L 92 11/05/21 12:26 131/81 11/05/21 11:33 36.4 C L 73 16 134/79 92 11/05/21 08:00 70 11/05/21 07:24 36.6 C 67 20 132/90 96 11/05/21 07:15 70 20 132/90 95 11/05/21 05:07 36.9 C 78 16 135/93 95
[2021-11-05] MEDS: LORATADINE 10 MG TAB PO SCH (21:04)
[2021-11-06] MEDS: TADALAFIL~ORDER AWAITING ACTION SCH ×2 (00:27→08:19)
[2021-11-06] MEDS: D5W AND 1/2NSS 1,000 ML IV SCH (05:15)
[2021-11-06 07:20] LABS: Hemoglobin 13.4 g/dL (14.0-18.0)
[2021-11-06 07:28] LABS: BUN Creatinine Ratio 11.4 (10-20); Calcium 8.4 mg/dl (8.5-10.1); Creatinine Clr Calc Pharmacy 95.5 ml/min; Est GFR (African American) 106.7 ml/min; Est GFR (Non-African American) 92.1 ml/min; Potassium 3.8 mmol/L (3.5-5.1)
[2021-11-06] MEDS: CITALOPRAM 20 MG TAB PO SCH (08:19)
[2021-11-06] MEDS: ASPIRIN 81 MG ECTAB PO SCH (08:19)
[2021-11-06] MEDS: PANTOprazole 40 MG TAB PO SCH (08:19)
--- NOTE | 2021-11-06 09:04 | Surgery Progress Note ---
Date of Service November 06, 2021 Assessment & Plan (1) Iliac artery aneurysm, left: Plan: Pt doing well post op day #2 from endovascular repair of iliac aneurysms. Pt feeling significantly improved today. Discussed with Dr Ponce. D/C home today. Admission and Anticipated Discharge Date Admission Date: November 04, 2021 Subjective 61 yo m POD #2 after percutaneous endovascular iliac artery aneurysm repair, seen in f/u today. Pt has been having nausea and dry heaves intermittently yesterday, but sx resolved today. Ate breakfast this am without any problems. Now just feeling a little tired. No dizziness, chest pain, SOB, leg pain, other new complaints. Review of Systems Review of Systems: All systems reviewed & are unremarkable except as noted in HPI & below Physical Exam Constitutional: WD/WN, vitals as above Respiratory: normal respiratory effort, lungs clear to auscultation Auscultation: + diminished lung sounds Cardiovascular: Rate/Rhythm: regular rate and regular rhythm Vessels: posterior tibial pulses present, dorsalis pedis pulses present and radial pulses present; + abnormal peripheral pulses Extremities: normal capillary refill; no edema Gastrointestinal (Abdomen): Inspection/Auscultation: abdomen normal to inspection and normal bowel sounds Percussion/Palpation: abdomen nontender Musculoskeletal: no cyanosis or clubbing, extremities motor strength 5/5 Skin: no rashes, warm and dry + incision (groin punctures C/D/I, minimal local tenderness/soft edema) Neurologic: moves all extremities and awake; no focal motor deficits and not confused Psychiatric: A+Ox3, euthymic affect Results & Data ([facility]) Vital Signs (Past 12 Hours) Vital Signs Temp Pulse Pulse Pulse Resp BP Pulse Ox 11/06/21 08:04 36.6 C 66 17 134/80 94 11/06/21 06:59 60 11/06/21 04:31 37.0 C 62 20 123/77 91 11/06/21 00:18 37.0 C 63 18 104/66 92 11/05/21 23:17 65
--- NOTE | 2021-11-06 09:06 | Discharge Summary ---
Date of Service November 06, 2021 Admission HPI Per Admitting Provider Chief Complaint rm#6 here for f/u post CTA. History of Present Illness I the pleasure of seeing Prashant today for follow-up for his iliac aneurysms. As you know he is a 61-year-old male who has enlarging of his left common iliac artery aneurysm. We recommended CT angiography and he returns today for results. Physical Exam Vitals & Measurements HR: 64 (Monitored) BP: 124/80 SpO2: 98% Input and Output - Last 24 hours (Last 8 hours) No I/O Data Found: On exam he is awake alert oriented x3. His blood pressure is 124/80. He has normal pulses in both upper and lower extremities. Lungs are clear. Heart irregular rate and rhythm. Abdominal exam is benign without any aneurysmal dilatation of the aorta. CT angiogram shows a left common iliac artery which is now 3.6 cm in size in the right common iliac artery which is 2.5 in size. Assessment/Plan 1. Aneurysm of iliac artery Full these aneurysms are amenable to endovascular repair. Left side will be repaired with a branched device preserving the internal iliac artery. On the right side the internal iliac has a partially thrombosed aneurysm just beyond its origin and this will need coiling followed by repairing the aneurysm with a straight graft. The patient understood the risks options benefits agreed to have this procedure. We will keep you informed as to his results. Thank you very much for letting us participate in the care of this patient. Sincerely, Edgar Ponce MD Problem List/Past Medical History Ongoing Acute pharyngitis Allergic rhinitis Aneurysm of left iliac artery Atypical chest pain Depression Dermatosis Diverticulosis Dizziness Dyslipidemia Esophagitis Fatigue GERD (gastroesophageal reflux disease) Hemorrhoids, internal Leukopenia Male erectile disorder Nausea and vomiting Severe right groin pain Shingles (herpes zoster) polyneuropathy Sleep apnea Thrombocytopenia Tubular adenoma Viral upper respiratory tract infection with cough Historical No qualifying data Procedure/Surgical History Herniorrhaphy (1997) Medications Inpatient No active inpatient medications Home citalopram 20 mg oral tablet, 20 mg= 1 tab, PO, Daily Claritin 10 mg oral tablet, 10 mg= 1 tab, PO, Daily, PRN pantoprazole 40 mg oral delayed release tablet, 40 mg= 1 tab, PO, Daily tadalafil 5 mg oral tablet, 5 mg= 1 tab, PO, Daily, PRN Allergies Bactrim (unknown) Social History Smoking Status Never smoked cigarettes Tobacco - Denies Tobacco Use Never smoker Family History Diabetes...: Mother. Hypertension: Mother. Signature Line Electronic Signature on File Moustapha Ponce MD Author Signature Dt/Tm: 10/12/2021 03:38 PM Dosier Operator Dayne Butterfield [facility] [address], [address] [place] [address] EJS Result Type: .Outpt Ltr Date of Service: October 12, 2021 15:38 EST Authorization Status: Final Subject: Consult Note Author or Import Date: MD Ponce Eugene J on October 12, 2021 15:38 EST Verified By: MD Ponce Eugene J on October 12, 2021 15:38 EST Encounter info: [id number], [facility], Clinic, 10/12/2021 - 10/12/2021 Admission Exam Per Admitting Provider On exam he is awake alert oriented x3. His blood pressure is 124/80. He has normal pulses in both upper and lower extremities. Lungs are clear. Heart irregular rate and rhythm. Abdominal exam is benign without any aneurysmal dilatation of the aorta. CT angiogram shows a left common iliac artery which is now 3.6 cm in size in the right common iliac artery which is 2.5 in size. Principal Diagnosis 1. s/p percutaneous endovascular BL iliac artery aneurysm repair 2. BL iliac artery aneurysms Discharge Exam Constitutional WD/WN, vitals as above Respiratory normal respiratory effort, lungs clear to auscultation Auscultation: + diminished lung sounds Cardiovascular Rate/Rhythm: regular rate and regular rhythm Vessels: posterior tibial pulses present, dorsalis pedis pulses present and radial pulses present; + abnormal peripheral pulses Extremities: normal capillary refill; no edema Gastrointestinal (Abdomen) Inspection/Auscultation: abdomen normal to inspection and normal bowel sounds Percussion/Palpation: abdomen nontender Musculoskeletal no cyanosis or clubbing, extremities motor strength 5/5 Skin no rashes, warm and dry + incision (groin punctures C/D/I, minimal local tenderness/soft edema) Neurologic moves all extremities and awake; no focal motor deficits and not confused Psychiatric A+Ox3, euthymic affect Discharge Data Allergies Allergy/AdvReac Type Severity Reaction Status Date / Time Bactrim AdvReac Unknown Nauseated Verified 10/24/17 12:35 sulfamethoxazole AdvReac Unknown Nauseated Verified 11/04/21 09:01 trimethoprim AdvReac Unknown Nauseated Verified 11/04/21 09:01 Procedures Performed Operation Date: 11/04/21 11:20 Actual Procedures p Percutaneous Endovascular Bilateral Iliac Repair, Ultrasound Localization of Bilateral Femoral Arteries, Mechanical Closure of Bilateral Femoral Arteries (Bilateral) - Moustapha Ponce MD Ordered Studies 11/04/21 07:11 EV Angio Abdomen Aorta Routine 11/04/21 13:08 US EV guide vascular access Routine 11/05/21 12:25 CT angio abd pelvis wo/w con Stat Hospital Course (1) Iliac artery aneurysm, left: Pt doing well post op day #2 from endovascular repair of iliac aneurysms. Pt feeling significantly improved today. Discussed with Dr Ponce. D/C home today. Total Time Total Time Spent Total Time Spent (In Minutes): 0 Discharge Plan Discharge Items Patient Disposition: Home - Self-Care Reason For Visit: Bilateral Iliac Artery Aneurysms Discharge Diagnosis: 1. s/p percutaneous endovascular BL iliac aneurysm repair 2. BL iliac artery aneurysm repair Condition on Discharge: Good Activity: Resume your previous activity Lifting: Gradually increase as tolerated Bathing: No limitations Exercise/Sports: Gradually increase as tolerated Driving/Machine Use: No limitations Weightbearing: Full weightbearing Non-emergency contact: Primary Care Provider and Surgeon Call non-emergency contact if: you have any medication questions, your pain is not controlled, your pain is concerning for you, you have a fever, your wound has increased redness and your wound has increased drainage Follow-up/Referrals: Mick Dewitt MD [Primary Care Provider] - Moustapha Ponce MD [Physician] - (Follow up with Dr Ponce or Lou Rodney PA-C in 2 weeks. Call [phone] for appt) Diet: Heart Healthy Addtl Attending Provider Instructions: SPECIAL CARE INSTRUCTIONS: Medications: * Continue to take your medications as directed. Incision/Puncture Site Care: * You will have an incision or puncture in each of your groins. Liquid glue will be used to seal your incisions/puncture site. This will lift off as the incisions/puncture sites heal. * If Liquid glue is not used, there will be small dressings covering your incisions. After you get home, you may remove the dressings and shower - allowing the warm soapy water to run over it. * Be sure to dry the sites well and keep them dry. * DO NOT SOAK IN A TUB/POOL/etc. UNTIL ALL SURGICAL SITES ARE HEALED. DO NOT REMOVE THE GLUE UNTIL THE INCISIONS HEAL. Restrictions: * Limit yourself to assistant credit manager activity for the first week. * You may walk and go up and down steps. * Avoid excessive bending or movement at the level of the incisions or punctures. Risks and Possible Complications: * Infection/Drainage/Bleeding - Drainage or bleeding from the incisions/p uncture site should be minimal. If you have excessive bleeding or drainage, call our office ([phone]) right away. * Pain/Numbness - You may experience some mild pain or soreness at your incision sites. You may also have some numbness around the incisions or into the insides of your thighs. Bruising is normal and should resolve within 2 weeks. * Changes in Appetite or Bowel Habits - Mostly related to anesthesia and pain medication, some patients have reported decreased appetite and/or problems with constipation. These symptoms usually improve over a few weeks. Remembering to take an [id number] stool softener, as directed, will help you to avoid constipation. Call our office and seek emergent treatment if you develop: * Fever or chills * Have a temperature greater than 101 degrees F * Any redness or purulent drainage from your incisions or punctures * Severe abdominal, chest or back pain SKIN IRRITATION: * You may experience some redness and/or swelling in the area where radiation was administered. If any skin irritation occurs, please contact your family physician. You will be receiving a call from the Vascular Surgery Nurse after you are discharged. FOLLOW UP VISIT: It is important for you to keep your follow up appointments with your medical provider. Keep any scheduled doctor appointments. Pending Studies at Discharge: No Stand-Alone Forms: My [employer], Work/School Release, Smoking Cessation Medications and DC Order Prescriptions: Continued tadalafil 5 mg tablet 5 mg PO Q2D Qty: 30 RF: 3 loratadine [Claritin] 10 mg tablet 10 mg PO HS RF: 0 pantoprazole 40 mg tablet,delayed release (DR/EC) 40 mg PO QAM Qty: 30 RF: 11 aspirin 81 mg Tablet,Delayed Release (Dr/Ec) 81 mg PO QAM RF: 0 citalopram [Celexa] 10 mg tablet 10 mg PO QAM RF: 0 Discharge Orders: Discharge Order (Routine); Ordered 11/06/21 Ordered By: Luo Rodney Admission Data Admit Date/Time: 11/04/21 13:19 Attending Provider: Moustapha Ponce Admit Provider: Moustapha Ponce Primary Care Provider: Mick Dewitt
== END 2021-11-06 10:33 | disposition home or self-care (01) | DRG 254 ==
LOC: ASU 08:43 → PACUINP 13:19 → 2E 19:58
DX: F32.A Depression, unspecified; Z88.2 Allergy status to sulfonamides; K21.9 Gastro-esophageal reflux disease without esophagitis; R10.9 Unspecified abdominal pain; I72.3 Aneurysm of iliac artery; Z79.899 Other long term (current) drug therapy; R11.2 Nausea with vomiting, unspecified; Z86.16 Personal history of COVID-19; Z79.82 Long term (current) use of aspirin

== ENCOUNTER 2023-12-06 14:37 | Inpatient (IN) ==
--- NOTE | 2023-12-06 15:27 | Emergency Department Note ---
History of Present Illness General Chief Complaint: Illness Stated Complaint: FEVER, CHILLS, REACTION AFTER FLU SHOT Time Seen by Provider: 12/06/23 15:04 History of Present Illness Maximum Pain Intensity: 5 Home Medications Medication Instructions Recorded Confirmed Type aspirin 81 mg tablet,delayed 81 mg PO QAM 09/13/20 11/30/23 History release rosuvastatin 20 mg tablet (Crestor) 20 mg PO DAILY 90 days #90 tabs 03/16/23 11/30/23 Rx citalopram 10 mg tablet 10 mg PO DAILY #90 tabs 10/14/23 11/30/23 Rx famotidine 20 mg tablet 20 mg PO BID #180 tabs 11/30/23 11/30/23 Rx olmesartan 5 mg tablet 5 mg PO DAILY #90 tabs 11/30/23 11/30/23 Rx pantoprazole 40 mg tablet,delayed See Rx Instructions .Route 11/30/23 11/30/23 Rx release .COMPLEX PRN gerd #90 tabs tadalafil 5 mg tablet 5 mg PO DAILY #30 tabs 11/30/23 11/30/23 Rx cephalexin 500 mg capsule 500 mg PO BID #14 caps 12/01/23 Rx Allergies Allergy/AdvReac Type Severity Reaction Status Date / Time Bactrim AdvReac Unknown Nauseated Verified 10/24/17 12:35 sulfamethoxazole AdvReac Unknown Nauseated Verified 11/30/23 08:06 trimethoprim AdvReac Unknown Nauseated Verified 11/30/23 08:06 Past Med/Surg History Medical History (Updated 12/04/23 @ 11:51 by Tip Payne DO) Prediabetes Hypertension History of adenomatous polyp of colon Iliac artery aneurysm Under surveillance by [facility] every 6 months GERD (gastroesophageal reflux disease) Controlled Depression Anxiety History of COVID-19 Dx 09/07/20 > symptoms at time: Head cold, loss of taste and smell > resolved except residual loss of smell Sleep apnea CPAP Herpes zoster without complication 3+ years ago Iliac artery aneurysm, left Thrombocytopenia Chronic, baseline platelets in the low 100's Tubular adenoma of colon Surgical History History of colonoscopy History of hernia repair right inguinal Family History Father Lumbar canal stenosis Alcohol abuse Hypertension Mother Diabetes Hyperlipemia Son FHx: suicide Brother Colonic polyp Brother Healthy adult Sister Colonic polyp Other DVT of leg (deep venous thrombosis) No family history of adverse response to anesthesia Social History (Updated 11/30/23 @ 08:10 by KELLY Ceron) Smoking Status: Never smoker Second Hand Exposure: No; Do You Dip or Chew Tobacco: No; Hx Alcohol Use: No Hx Substance Use: No Preferred Language: Cuban Communication Ability: Effective Visual Impairment: No Limitations Job Forwarder Required: No Beliefs That Will Affect Care: None marital status: Current Living Situation: Spouse current occupational status: employed current occupation: [employer] Feels Safe at Home: Yes Childhood Exposure to Second-Hand Smoke: No Diet: other Diet Comment: healthy eating Physical Activity Frequency: 5-6 Times per Week Seatbelt Use: always Sunscreen Use: Yes Assistive Devices: Glasses Physical Exam 2 Vital Signs: Vital Signs - 24 hr 12/06/23 14:41 12/06/23 15:10 12/06/23 15:14 Temperature 36.5 C Temperature Source Temporal Artery Sc an Pulse Rate 100 H 83 Pulse Rate [Apical ] 84 Pulse Rhythm Regular Regular Pulse Rhythm [Apic al] Regular Pulse Strength [Ap ical] Normal Respiratory Rate 20 20 16 Respiratory Effort / Characteristics Non-Labored Sponta neous Non-Labored Sponta neous Respiratory Depth Normal Normal Respiratory Patter n Regular Blood Pressure 121/80 Blood Pressure [Le ft Arm] 172/101 H Blood Pressure Mariia n 93 Blood Pressure Mariia n [Left Arm] 124 Blood Pressure Pos ition [Left Arm] Lying Pulse Oximetry 96 97 92 Oxygen Delivery Me thod Room Air Room Air Room Air Sepsis Recent Feve r Within 48 Hours No Sepsis New/Unexpla ined Change in Men sal Status No Sepsis Action Take n by Nursing No Action Required Medical Decision Making Laboratory Data 12/06/23 14:58 12/06/23 14:58 Discharge Plan Visit Data Chief Complaint: Illness Stated Complaint: FEVER, CHILLS, REACTION AFTER FLU SHOT ED Provider: Igor Meléndez Forms Stand Alone Forms: My [employer] Prescriptions Prescriptions: No Action citalopram 10 mg tablet 10 mg PO DAILY Qty: 90 3RF cephalexin 500 mg capsule 500 mg PO BID Qty: 14 0RF tadalafil 5 mg tablet 5 mg PO DAILY Qty: 30 11RF olmesartan 5 mg tablet 5 mg PO DAILY Qty: 90 3RF pantoprazole 40 mg tablet,delayed release (DR/EC) See Rx Instructions .ROUTE .COMPLEX PRN (Reason: gerd) Qty: 90 3RF Dose Instruction: TAKE 1 TABLET BY MOUTH EVERY DAY IN THE MORNING Rx Instructions: TAKE 1 TABLET BY MOUTH EVERY DAY IN THE MORNING PRN; famotidine 20 mg tablet 20 mg PO BID Qty: 180 3RF rosuvastatin [Crestor] 20 mg tablet 20 mg PO DAILY 90 Days Qty: 90 2RF aspirin 81 mg Tablet,Delayed Release (Dr/Ec) 81 mg PO QAM Referrals Referrals: Mick Dewitt MD [Primary Care Provider] -
--- NOTE | 2023-12-06 15:33 | Emergency Department Note ---
History of Present Illness General Chief complaint: Illness Stated complaint: FEVER, CHILLS, REACTION AFTER FLU SHOT Time Seen by Provider: 12/06/23 15:04 History of Present Illness Provider complaint: Illness Onset (ago): week(s) 1 Maximum Pain Intensity: 5 63-year-old male presents emergency department with for illness. Patient states he has been feeling ill for the last week after receiving a COVID booster. He reports headache, cough, sneezing. He reports myalgias and fevers. Patient reports nausea. Patient states he was seen in the emergency department 2 days ago and was discharged home. Patient states "I cannot go home today". Patient denies any falls. He reports some subjective fevers. Patient states he was seen in the emergency department 2 days ago and had blood cultures as well as Lyme screening done and CT scans done which were all negative. Patient states he called his primary care doctor who referred him back to the emergency department today. Home Medications Medication Instructions Recorded Confirmed Type aspirin 81 mg tablet,delayed 81 mg PO QAM 09/13/20 12/06/23 History release rosuvastatin 20 mg tablet (Crestor) 20 mg PO DAILY 90 days #90 tabs 03/16/23 12/06/23 Rx famotidine 20 mg tablet 20 mg PO BID #180 tabs 11/30/23 12/06/23 Rx olmesartan 5 mg tablet 5 mg PO DAILY #90 tabs 11/30/23 12/06/23 Rx tadalafil 5 mg tablet 5 mg PO DAILY #30 tabs 11/30/23 12/06/23 Rx cephalexin 500 mg capsule 500 mg PO BID #14 caps 12/01/23 12/06/23 Rx citalopram 10 mg tablet 10 mg PO HS 12/06/23 12/06/23 History pantoprazole 40 mg tablet,delayed 40 mg PO QAM gerd 12/06/23 12/06/23 History release Allergies Allergy/AdvReac Type Severity Reaction Status Date / Time sulfamethoxazole AdvReac Mild Nauseated Verified 12/06/23 17:42 trimethoprim AdvReac Mild Nauseated Verified 12/06/23 17:42 Past Med/Surg History Medical History Prediabetes Hypertension History of adenomatous polyp of colon Iliac artery aneurysm Under surveillance by [facility] vascular every 6 months GERD (gastroesophageal reflux disease) Controlled Depression Anxiety History of COVID-19 Dx 09/07/20 > symptoms at time: Head cold, loss of taste and smell > resolved except residual loss of smell Sleep apnea CPAP Herpes zoster without complication 3+ years ago Iliac artery aneurysm, left Thrombocytopenia Chronic, baseline platelets in the low 100's Tubular adenoma of colon Surgical History History of colonoscopy History of hernia repair right inguinal Family History Father Lumbar canal stenosis Alcohol abuse Hypertension Mother Diabetes Hyperlipemia Son FHx: suicide Brother Colonic polyp Brother Healthy adult Sister Colonic polyp Other DVT of leg (deep venous thrombosis) No family history of adverse response to anesthesia Social History Smoking Status: Never smoker Second Hand Exposure: No; Do You Dip or Chew Tobacco: No; Hx Alcohol Use: No Hx Substance Use: No Preferred Language: French Communication Ability: Effective Visual Impairment: No Limitations Solar Designer Required: No Beliefs That Will Affect Care: None marital status: Current Living Situation: Spouse current occupational status: employed current occupation: [employer] Feels Safe at Home: Yes Childhood Exposure to Second-Hand Smoke: No Diet: other Diet Comment: healthy eating Physical Activity Frequency: 5-6 Times per Week Seatbelt Use: always Sunscreen Use: Yes Assistive Devices: Glasses Physical Exam Vital Signs Vital Signs - 24 hr 12/06/23 14:41 12/06/23 15:10 12/06/23 15:14 Temperature 36.5 C Temperature Source Temporal Artery Scan Pulse Rate 100 H 83 Pulse Rate [Apical] 84 Pulse Rhythm Regular Regular Pulse Rhythm [Apical] Regular Pulse Strength [Apical] Normal Respiratory Rate 20 20 16 Respiratory Effort / Characteristics Non-Labored Spontaneous Non-Labored Spontaneous Respiratory Depth Normal Normal Respiratory Pattern Regular Blood Pressure 121/80 Blood Pressure [Left Arm] 172/101 H Blood Pressure Mean 93 Blood Pressure Mean [Left Arm] 124 Blood Pressure Position [Left Arm] Lying Pulse Oximetry 96 97 92 Oxygen Delivery Method Room Air Room Air Room Air Sepsis Recent Fever Within 48 Hours No Sepsis New/Unexplained Change in Mental Status No Sepsis Action Taken by Nursing No Action Required 12/06/23 17:00 Temperature Temperature Source Pulse Rate Pulse Rate [Apical] 61 Pulse Rhythm Pulse Rhythm [Apical] Regular Pulse Strength [Apical] Normal Respiratory Rate 18 Respiratory Effort / Characteristics Non-Labored Spontaneous Respiratory Depth Normal Respiratory Pattern Regular Blood Pressure Blood Pressure [Left Arm] 144/97 H Blood Pressure Mean Blood Pressure Mean [Left Arm] 112 Blood Pressure Position [Left Arm] Pulse Oximetry 95 Oxygen Delivery Method Room Air Sepsis Recent Fever Within 48 Hours Sepsis New/Unexplained Change in Mental Status Sepsis Action Taken by Nursing Physical Exam HENT: Exam performed. -Head: Normocephalic and atraumatic. -Right Ear: External ear normal. No mastoid erythema -Left Ear: External ear normal. No mastoid erythema -Mouth/Throat: The oropharynx is clear and moist. No trismus in the jaw. No dental abscesses or uvula swelling. No oropharyngeal exudate or tonsillar abscesses. EYES: Conjunctivae and EOM are normal. Pupils are equal, round, and reactive to light. Right eye exhibits no discharge. Left eye exhibits no discharge. No scleral icterus. Funduscopic exam showed no AV nicking or papilledema bilaterally. No photophobia bilaterally. NECK: Normal range of motion. Neck supple. No JVD present. No spinous process tenderness present. No rigidity. No tracheal deviation and normal range of motion present. CV: Normal rate, regular rhythm, normal heart sounds and intact distal pulses. There is no peripheral edema. Palpable radial pulses bue. PULM/CHEST: Effort normal and breath sounds normal. No respiratory distress. No stridor. She has no wheezes. She has no rales. ABD: Abdomen soft and nontender. No guarding. No rigidity. No pain on palpation of the abdomen. MUSC/SKEL: Normal range of motion. There is no peripheral edema, tenderness or deformity. NEURO: She is alert and oriented to person, place, and time. She has normal strength. No cranial nerve deficit or sensory deficit. Coordination and gait normal. GCS eye subscore is 4. GCS verbal subscore is 5. GCS motor subscore is 6. Cerebellar tests wnl. No clonus. SKIN: Skin is warm and dry. She is not diaphoretic. PSYCH: She has a normal mood and affect. Behavior is normal. Judgment and thought content normal. Course Course 1504: The patient was evaluated in room A9. A complete history and physical exam was performed Cardiac monitoring: An order was placed for continuous cardiac monitoring. The monitor shows a rate of 80 with sinus rhythm interpreted by sd 1712: Vital signs stable. Labs are within normal limits with the exception of a sodium of 126. Imaging within normal limits. Patient has not had any seizure- like activity. No need for hypertonic saline. Sodium will be gently replaced with normal saline. Potassium 3.3 replaced orally. Patient will be admitted to the medicine and the hospitalist team Dr. Claudio's team has been notified. Administered Medications Discontinued Medications Sodium Chloride (Nss) 1,000 mls @ 999 mls/hr IV .Q1H1M DEN Stop: 12/06/23 16:15 Last Infusion: 12/06/23 16:57 Dose: Infused Documented By: Admin: 12/06/23 15:35 Dose: 999 mls/hr Documented By: ALEISHA Ioversol (Optiray 320 125ml) 118 ml IV ONCE ONE Stop: 12/06/23 16:18 Last Admin: 12/06/23 16:19 Dose: 118 ml Documented By: SCOTT Potassium Chloride (Potassium Chloride Crtab 20 Meq Tabcr) 40 meq PO NOW STA Stop: 12/06/23 17:19 Last Admin: 12/06/23 17:29 Dose: 40 meq Documented By: ALEISHA Potassium Chloride (Potassium Chloride 10 Meq Tabcr) 40 meq PO NOW STA Stop: 12/06/23 17:27 Last Admin: 12/06/23 17:53 Dose: Not Given Documented By: ALEISHA Medical Decision Making Laboratory Data Attestation: I reviewed the patient's lab results. 12/06/23 14:58 12/06/23 14:58 Lab Results 12/06/23 12/06/23 12/06/23 Range/Units 11:45 14:58 15:32 WBC 9.13 (4.8-10.8) K/ul RBC 4.70 (4.70-6.10) M/uL Hgb 14.5 (14.0-18.0) g/dl Hct 38.7 L (42.0-52.0) % MCV 82.3 (80.0-100.0) fL MCH 30.9 (25.0-34.0) pg MCHC 37.5 H (32.0-36.0) g/dL RDW Std Deviation 36.1 L (36.4-46.3) fL RDW Coeff of Yassine 11.9 (11.5-14.5) % Plt Count 126 L (130-400) K/uL MPV 10.3 (9.4-12.4) fL Neutrophils % (Manual) 71 % Lymphocytes % (Manual) 12 % Reactive Lymphs % (Man) 12 % Monocytes % (Manual) 4 % Basophils % (Manual) 1 % Neutrophils # (Manual) 6.48 (1.40-6.50) K/uL Total Absolute Neuts 6.48 (1.4-6.5) K/uL Lymphocytes # (Manual) 1.10 L (1.2-3.4) K/uL Reactive Lymphs # 1.10 K/uL Total Abs Lymphocytes 2.19 (1.2-3.4) K/uL Monocytes # (Manual) 0.37 (0.11-0.59) K/uL Basophils # (Manual) 0.09 (0-0.2) K/uL Polychromasia 1+ Hypochromasia Present Ovalocytes 1+ Echinocytes 2+ Acanthocytes (Spur) 1+ PT 11.6 (9.0-12.0) Seconds INR 1.1 (0.9-1.1) APTT 26 (21-31) Seconds PTT Ratio 0.9 VBG pH 7.49 H (7.36-7.41) VBG pCO2 33 L (38-50) mmHg VBG pO2 44 mmHg VBG HCO3 25 mmol/L VBG O2 Saturation 84.1 % VBG Base Excess 2.2 mEq/L Sodium 126 L (136-145) mmol/L Potassium 3.3 L (3.5-5.1) mmol/L Chloride 93 L (98-107) mmol/L Carbon Dioxide 24 (21-32) mmol/L Anion Gap 9 (3-11) BUN 12 (6-23) mg/dl Creatinine 1.06 (0.6-1.4) mg/dl Est Cr Clr Drug Dosing Not Reportable Est GFR ( Amer) 85.5 ml/min Est GFR (Non-Af Amer) 73.8 ml/min BUN/Creatinine Ratio 11.3 (10-20) Glucose 142 H (70-99(Fasting)) mg/dl Lactate 1.9 (0.4-2.0) mmol/L Calcium 8.4 L (8.6-10.3) mg/dl Magnesium 1.9 (1.7-2.4) mg/dl Total Bilirubin 1.2 H (0.2-1.0) mg/dl AST 32 (13-39) U/L ALT 29 (7-52) U/L Alkaline Phosphatase 55 (34-104) U/L Troponin I High Sens 17.3 (0-20) pg/ml Total Protein 6.8 (6.0-8.3) gm/dl Albumin 4.4 (3.4-5.0) gm/dl Globulin 2.4 L (2.5-4.0) gm/dl Albumin/Globulin Ratio 1.8 (0.9-2) Procalcitonin 0.07 (0-0.5) ng/ml Urine Color Urine Appearance (Clear) Urine pH (4.5-7.5) Ur Specific Mercedes (1.000-1.030) Urine Protein (Negative) Urine Glucose (UA) (Negative) Urine Ketones (Negative) Urine Blood (Negative) Urine Nitrite (Negative) Urine Bilirubin (Negative) Urine Urobilinogen (Negative) Ur Leukocyte Esterase (Negative) Urine WBC (Auto) (0-5) /hpf Urine RBC (Auto) (0-2) /hpf U Hyaline Cast (Auto) (0-2) /lpf U Epithel Cells (Auto) (0-2) /hpf Urine Bacteria (Auto) (None Seen) Ethyl Alcohol mg/dL (<10.0) mg/dl SARS-CoV-2 (PCR) NEGATIVE (Negative) Influenza Type A (PCR) Negative (Neg) Influenza Type B (PCR) Negative (Neg) RSV (RT-PCR) Negative (Neg) 12/06/23 12/06/23 Range/Units 16:03 16:30 WBC (4.8-10.8) K/ul RBC (4.70-6.10) M/uL Hgb (14.0-18.0) g/dl Hct (42.0-52.0) % MCV (80.0-100.0) fL MCH (25.0-34.0) pg MCHC (32.0-36.0) g/dL RDW Std Deviation (36.4-46.3) fL RDW Coeff of Yassine (11.5-14.5) % Plt Count (130-400) K/uL MPV (9.4-12.4) fL Neutrophils % (Manual) % Lymphocytes % (Manual) % Reactive Lymphs % (Man) % Monocytes % (Manual) % Basophils % (Manual) % Neutrophils # (Manual) (1.40-6.50) K/uL Total Absolute Neuts (1.4-6.5) K/uL Lymphocytes # (Manual) (1.2-3.4) K/uL Reactive Lymphs # K/uL Total Abs Lymphocytes (1.2-3.4) K/uL Monocytes # (Manual) (0.11-0.59) K/uL Basophils # (Manual) (0-0.2) K/uL Polychromasia Hypochromasia Ovalocytes Echinocytes Acanthocytes (Spur) PT (9.0-12.0) Seconds INR (0.9-1.1) APTT (21-31) Seconds PTT Ratio VBG pH (7.36-7.41) VBG pCO2 (38-50) mmHg VBG pO2 mmHg VBG HCO3 mmol/L VBG O2 Saturation % VBG Base Excess mEq/L Sodium (136-145) mmol/L Potassium (3.5-5.1) mmol/L Chloride (98-107) mmol/L Carbon Dioxide (21-32) mmol/L Anion Gap (3-11) BUN (6-23) mg/dl Creatinine (0.6-1.4) mg/dl Est Cr Clr Drug Dosing Est GFR ( Amer) ml/min Est GFR (Non-Af Amer) ml/min BUN/Creatinine Ratio (10-20) Glucose (70-99(Fasting)) mg/dl Lactate (0.4-2.0) mmol/L Calcium (8.6-10.3) mg/dl Magnesium (1.7-2.4) mg/dl Total Bilirubin (0.2-1.0) mg/dl AST (13-39) U/L ALT (7-52) U/L Alkaline Phosphatase (34-104) U/L Troponin I High Sens (0-20) pg/ml Total Protein (6.0-8.3) gm/dl Albumin (3.4-5.0) gm/dl Globulin (2.5-4.0) gm/dl Albumin/Globulin Ratio (0.9-2) Procalcitonin (0-0.5) ng/ml Urine Color Yellow Urine Appearance Clear (Clear) Urine pH 6.5 (4.5-7.5) Ur Specific Mercedes 1.022 (1.000-1.030) Urine Protein 1+ H (Negative) Urine Glucose (UA) Trace H (Negative) Urine Ketones Negative (Negative) Urine Blood Trace H (Negative) Urine Nitrite Negative (Negative) Urine Bilirubin Negative (Negative) Urine Urobilinogen Positive H (Negative) Ur Leukocyte Esterase Negative (Negative) Urine WBC (Auto) 0-5 (0-5) /hpf Urine RBC (Auto) 3-5 H (0-2) /hpf U Hyaline Cast (Auto) 0-2 (0-2) /lpf U Epithel Cells (Auto) 0-2 (0-2) /hpf Urine Bacteria (Auto) None Seen (None Seen) Ethyl Alcohol mg/dL < 10.0 (<10.0) mg/dl SARS-CoV-2 (PCR) (Negative) Influenza Type A (PCR) (Neg) Influenza Type B (PCR) (Neg) RSV (RT-PCR) (Neg) Imaging Data Attestation: I personally reviewed and interpreted this imaging study as follows: My Impression: Chest x-ray negative. Airway clear. No pneumothorax. No consolidation. No cardiomegaly or cephalization.. No free air under the diaphragm. No fractures of the skeletal structures. Radiologist's Impression: Chest X-Ray 12/06/23 15:14 XR chest 1V portable CLINICAL HISTORY: Sepsis. COMPARISON STUDY: Chest CT September 13, 2020. Chest radiograph December 04, 2023. FINDINGS: Lung volumes are normal. Lungs are clear. There is no pneumothorax or pleural effusion. Mild cardiomegaly is unchanged. Mediastinal contours are normal. There is no evidence for pulmonary edema. IMPRESSION: No acute cardiopulmonary findings. No change in appearance of the chest. ACT 112: Negative or not required by law. Electronically signed by: Rajendra Cohen M.D. 12/06/2023 3:38 PM Chest CTA 12/06/23 15:15 CT angio chest PE protocol HISTORY: 63 years-old Male with sob. Acute shortness of breath TECHNIQUE: Multiple CTA images of the chest were obtained after the intravenous administration of 118 ml Optiray. Coronal and sagittal MIPS were obtained from the axial data set and were submitted for review. All measurements were obtained according to NASCET criteria. A dose lowering technique was utilized adhering to the principles of ALARA. COMPARISON: 09/13/2020. FINDINGS: CTA: The heart is upper limits of normal in size. No pericardial effusion. Mild fusiform dilation of the ascending thoracic aorta at the level of the main pulmonary artery, 4.3 x 4.3 cm, previously 3.9 cm. There is no dissection. Suboptimal evaluation of the pulmonary arteries secondary to contrast bolus timing and respiratory motion artifact. No central pulmonary emboli identified. CT CHEST: Unremarkable thyroid. No pathologically enlarged lymph nodes. Trace pleural effusions. Mild right hemidiaphragmatic elevation. No pneumothorax or overt pulmonary edema. Mild subsegmental bibasilar atelectasis. No suspicious pulmonary nodules or masses. Minimal tracheobronchial secretions. Nonspecific bilateral perinephric stranding. Exophytic cyst of the superior pole right kidney. The spleen is mildly enlarged. Unremarkable soft tissues. No acute fracture. Developmental incomplete bony fusion involves the posterior elements of the upper thoracic spine. Midthoracic dextroscoliosis. IMPRESSION: 1. Limited evaluation of the pulmonary arterial tree as above. No central pulmonary emboli identified. 2. Mild subsegmental bibasilar atelectasis. 3. Fusiform dilation of the ascending thoracic aorta measures 4.3 cm. No dissection. ACT 112: Negative or not required by law. The above report was generated using voice recognition software. It may contain grammatical, syntax or spelling errors. Electronically signed by: Bentley Vick M.D. 12/06/2023 4:[address] 12/06/23 15:15 CT OF THE HEAD WITHOUT CONTRAST CLINICAL HISTORY: Headache. COMPARISON STUDY: MRI of the brain December 30, 2022. Head CT December 04, 2023. CT DOSE: 2032.85 mGy.cm TECHNIQUE: Helical axial images of the head were obtained without IV contrast. Automated exposure control was utilized for the study. A dose lowering technique was utilized adhering to the principles of ALARA. FINDINGS: No acute intracranial hemorrhage, midline shift or mass effect is present. The ventricular system is unremarkable. The basal cisterns are patent. No extra-axial collections are present. There are no findings to suggest acute dural sinus thrombosis or acute territorial infarct. 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 No significant calvarial abnormalities are present. IMPRESSION: No acute intracranial findings. No change in appearance of the brain. ACT 112: Negative or not required by law. Electronically signed by: Rajendra Cohen M.D. 12/06/2023 4:49 PM Head CTA 12/06/23 15:15 CT angio head w con CLINICAL HISTORY: 63 years-old Male with capone. Acute headache. COMPARISON STUDY: Head CT of same day and also 12/04/2023 TECHNIQUE: Following the IV administration of 118 cc of Optiray, CT angiogram of the brain was performed from the skull base to the vertex. Images are reviewed in the axial, sagittal, and coronal planes. 3-D MIPS images are created and assessed. IV contrast was administered without complication. All measurements were obtained according to NASCET criteria. A dose lowering technique was utilized adhering to the principles of ALARA. FINDINGS: CT ANGIOGRAM OF THE BRAIN: The imaged bilateral internal carotid arteries are patent. The bilateral anterior and middle cerebral arteries are also patent. The vertebrobasilar system and posterior cerebral arteries are widely patent. There is no aneurysm, high-grade stenosis, or proximal branch occlusion identified. Dural sinuses appear patent. Atrophic cerebellum redemonstrated. IMPRESSION: Unremarkable CTA of the head ACT 112: Negative or not required by law. The above report was generated using voice recognition software. It may contain grammatical, syntax or spelling errors. Electronically signed by: Bentley Vick M.D. 12/06/2023 4:58 PM Neck CTA 12/06/23 15:15 CT ANGIOGRAPHY OF THE NECK WITH CONTRAST CLINICAL HISTORY: Headache. COMPARISON STUDY: No previous studies for comparison. Technique: CT angiography of the carotid and vertebral arteries was obtained using Optiray and 3D reconstruction on an independent workstation. NASCET criteria was utilized. Automated exposure control was utilized for the study. A dose lowering technique was utilized adhering to the principles of ALARA. Findings: Visualized portions of the lung apices are unremarkable. There is no cervical spine fracture. No cervical lymphadenopathy is present. Multilevel degenerative changes within the cervical spine are present. The bilateral common carotid, cervical internal carotid and vertebral arteries are patent. There is no stenosis, dissection or aneurysm within the neck. There is mild plaque at the origin of the left vertebral artery without stenosis. IMPRESSION: Unremarkable CTA of the neck. ACT 112: Negative or not required by law. Electronically signed by: Rajendra Cohen M.D. 12/06/2023 4:55 PM ECG Data Attestation: I personally reviewed and interpreted this ECG as follows: Additional Comments: Junctional rhythm with a rate of 90. QRS [address] elevation. Nonspecific ST depression in leads II, III and aVF. [facility] Narrative 1504: The patient was evaluated in room A9. A complete history and physical exam was performed Cardiac monitoring: An order was placed for continuous cardiac monitoring. The monitor shows a rate of 80 with sinus rhythm interpreted by me 1712: Vital signs stable. Labs are within normal limits with the exception of a sodium of 126. Imaging within normal limits. Patient has not had any seizure- like activity. No need for hypertonic saline. Sodium will be gently replaced with normal saline. Potassium 3.3 replaced orally. Patient will be admitted to the medicine and the hospitalist team Dr. Claudio's team has been notified. Impression & Plan Hyponatremia Discharge Plan Visit Data Chief Complaint: Illness Stated Complaint: FEVER, CHILLS, REACTION AFTER FLU SHOT ED Provider: Igor Meléndez Discharge Problem: Hyponatremia Patient Disposition: Admitted As Inpatient Forms Stand Alone Forms: My [facility] Prescriptions Prescriptions: No Action cephalexin 500 mg capsule 500 mg PO BID Qty: 14 0RF Rx Instructions: PER PT "NEVER STARTED" tadalafil 5 mg tablet 5 mg PO DAILY Qty: 30 11RF olmesartan 5 mg tablet 5 mg PO DAILY Qty: 90 3RF Rx Instructions: PER PT "ONLY TOOK 2 DOSES, THEN STOPPED". famotidine 20 mg tablet 20 mg PO BID Qty: 180 3RF Rx Instructions: PER PT "NEVER STARTED" rosuvastatin [Crestor] 20 mg tablet 20 mg PO DAILY 90 Days Qty: 90 2RF aspirin 81 mg Tablet,Delayed Release (Dr/Ec) 81 mg PO QAM citalopram 10 mg tablet 10 mg PO HS pantoprazole 40 mg tablet,delayed release (DR/EC) 40 mg PO QAM Rx Instructions: PER PT "STOP TAKING THIS MED, START WITH FAMOTIDINE, NEVER SWITCHED". Referrals Referrals: Mick Dewitt MD [Primary Care Provider] -
[2023-12-06] MEDS: SODIUM CHLORIDE 0.9% 1,000 ML IV SCH ×2 (15:35→18:40)
--- NOTE | 2023-12-06 15:40 | XRay Report ---
XR chest 1V portable CLINICAL HISTORY: Sepsis. COMPARISON STUDY: Chest CT September 13, 2020. Chest radiograph December 04, 2023. FINDINGS: Lung volumes are normal. Lungs are clear. There is no pneumothorax or pleural effusion. Mil d cardiomegaly is unchanged. Mediastinal contours are normal. There is no evidence for pulmonary alix a. IMPRESSION: No acute cardiopulmonary findings. No change in appearance of the chest. ACT 112: Negative or not required by law. Electronically signed by: Rajendra Cohen M.D. 12/06/2023 3:38 PM
[2023-12-06 15:45] LABS: Albumin Level 4.4 gm/dl (3.4-5.0); Anion Gap 9 (3-11); Bilirubin,Total 1.2 mg/dl (0.2-1.0); Calcium 8.4 mg/dl (8.6-10.3); Carbon Dioxide 24 mmol/L (21-32); Chloride 93 mmol/L (98-107); Potassium 3.3 mmol/L (3.5-5.1); Sodium 126 mmol/L (136-145)
[2023-12-06 15:51] LABS: Alanine Aminotransferase 29 U/L (7-52); Albumin Globulin Ratio 1.8 (0.9-2); Alkaline Phosphatase 55 U/L (34-104); Aspartate Aminotransferase 32 U/L (13-39); BUN Creatinine Ratio 11.3 (10-20); Blood Urea Nitrogen 12 mg/dl (6-23); Est GFR (African American) 85.5 ml/min; Est GFR (Non-African American) 73.8 ml/min; Globulin 2.4 gm/dl (2.5-4.0); Glucose 142 mg/dl (70-99(Fasting)); Total Protein 6.8 gm/dl (6.0-8.3)
[2023-12-06 15:53] LABS: Base Excess VBG 2.2 mEq/L; HCO3 VBG 25 mmol/L; Oxygen Saturation VBG 84.1 %; PCO2 VBG 33 mmHg (38-50); PO2 VBG 44 mmHg; pH VBG 7.49 (7.36-7.41)
[2023-12-06 15:54] LABS: Troponin I High Sensitivity 17.3 pg/ml (0-20)
[2023-12-06 16:03] LABS: Influenza A virus by PCR Negative (Neg); Influenza B virus by PCR Negative (Neg); RSV by PCR Negative (Neg); SARS CoV2 RNA(COVID-19) Ceph NEGATIVE (Negative)
[2023-12-06 16:12] LABS: INR 1.1 (0.9-1.1); Partial Thromboplastin Ratio 0.9; Partial Thromboplastin Time 26 Seconds (21-31); Prothrombin Time 11.6 Seconds (9.0-12.0)
[2023-12-06 16:16] LABS: Hematocrit (blood only) 38.7 % (42.0-52.0); Hemoglobin 14.5 g/dl (14.0-18.0); Mean Corpuscular Hemoglobin 30.9 pg (25.0-34.0); Mean Corpuscular Hgb Conc 37.5 g/dL (32.0-36.0); Mean Corpuscular Volume 82.3 fL (80.0-100.0); Mean Platelet Volume 10.3 fL (9.4-12.4); Platelet Count 126 K/uL (130-400); RDW Coefficient of Variation 11.9 % (11.5-14.5); RDW Standard Deviation 36.1 fL (36.4-46.3); White Blood Count 9.13 K/ul (4.8-10.8)
[2023-12-06 16:17] LABS: ALC (manual) 2.19 K/uL (1.2-3.4); ANC (manual) 6.48 K/uL (1.4-6.5); Acanthocytes 1+; Basophils # (manual) 0.09 K/uL (0-0.2); Basophils % (manual) 1 %; Echinocytes 2+; Hypochromasia Present; Lymphocytes % (manual) 12 %; Monocytes # (manual) 0.37 K/uL (0.11-0.59); Monocytes % (manual) 4 %; Neutrophils # (manual) 6.48 K/uL (1.40-6.50); Neutrophils % (manual) 71 %; Ovalocytes 1+; Polychromasia 1+; Reactive Lymphocytes % (manual) 12 %
[2023-12-06] MEDS: OPTIRAY 320 125ml IV ONE (16:19)
[2023-12-06 16:47] LABS: Appearance Urine Clear (Clear); Bacteria Urine Automated None Seen (None Seen); Bilirubin Urine Negative (Negative); Blood Urine Trace (Negative); Cast Urine Automated 0-2 /lpf (0-2); Color Urine Yellow; Epithelial Cell Urine Auto 0-2 /hpf (0-2); Glucose Urine UA Trace (Negative); Ketones Urine Negative (Negative); Leukocyte Esterase Urine Negative (Negative); Nitrite Urine Negative (Negative); Protein Urine 1+ (Negative); Specific Gravity Urine 1.022 (1.000-1.030); Urobilinogen Urine Positive (Negative); WBC Urine Automated 0-5 /hpf (0-5); pH Urine 6.5 (4.5-7.5)
--- NOTE | 2023-12-06 16:47 | CT Scan Report ---
CT angio chest PE protocol HISTORY: 63 years-old Male with sob. Acute shortness of breath TECHNIQUE: Multiple CTA images of the chest were obtained after the intravenous administration of 118 ml Optiray. Coronal and sagittal MIPS were obtained from the axial data set and were submitted for review. All measurements were obtained according to NASCET criteria. A dose lowering technique was u tilized adhering to the principles of ALARA. COMPARISON: 09/13/2020. FINDINGS: CTA: The heart is upper limits of normal in size. No pericardial effusion. Mild fusiform dilation of the a scending thoracic aorta at the level of the main pulmonary artery, 4.3 x 4.3 cm, previously 3.9 cm. T here is no dissection. Suboptimal evaluation of the pulmonary arteries secondary to contrast bolus ti manju and respiratory motion artifact. No central pulmonary emboli identified. CT CHEST: Unremarkable thyroid. No pathologically enlarged lymph nodes. Trace pleural effusions. Mild right hem idiaphragmatic elevation. No pneumothorax or overt pulmonary edema. Mild subsegmental bibasilar atele ctasis. No suspicious pulmonary nodules or masses. Minimal tracheobronchial secretions. Nonspecific bilateral perinephric stranding. Exophytic cyst of the superior pole right kidney. The sp [place] is mildly enlarged. Unremarkable soft tissues. No acute fracture. Developmental incomplete bony fusion involves the posterior elements of the upper thoracic spine. Midthoracic dextroscoliosis. IMPRESSION: 1. Limited evaluation of the pulmonary arterial tree as above. No central pulmonary emboli identified . 2. Mild subsegmental bibasilar atelectasis. 3. Fusiform dilation of the ascending thoracic aorta measures 4.3 cm. No dissection. ACT 112: Negative or not required by law. The above report was generated using voice recognition software. It may contain grammatical, syntax o r spelling errors. Electronically signed by: Bentley Vick M.D. 12/06/2023 4:46 PM
--- NOTE | 2023-12-06 16:51 | CT Scan Report ---
CT OF THE HEAD WITHOUT CONTRAST CLINICAL HISTORY: Headache. COMPARISON STUDY: MRI of the brain December 30, 2022. Head CT December 04, 2023. CT DOSE: 2032.85 mGy.cm TECHNIQUE: Helical axial images of the head were obtained without IV contrast. Automated exposure con trol was utilized for the study. A dose lowering technique was utilized adhering to the principles o f ALARA. FINDINGS: No acute intracranial hemorrhage, midline shift or mass effect is present. The ventricular system is unremarkable. The basal cisterns are patent. No extra-axial collections are present. There are no findings to suggest acute dural sinus thrombosis or acute territorial infarct. 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 No significant calvarial abnormalities are present. IMPRESSION: No acute intracranial findings. No change in appearance of the brain. ACT 112: Negative or not required by law. Electronically signed by: Rajendra Cohen M.D. 12/06/2023 4:49 PM
--- NOTE | 2023-12-06 16:57 | CT Scan Report ---
CT ANGIOGRAPHY OF THE NECK WITH CONTRAST CLINICAL HISTORY: Headache. COMPARISON STUDY: No previous studies for comparison. Technique: CT angiography of the carotid and vertebral arteries was obtained using Optiray and 3D rec onstruction on an independent workstation. NASCET criteria was utilized. Automated exposure control was utilized for the study. A dose lowering technique was utilized adhering to the principles of ALA RA. Findings: Visualized portions of the lung apices are unremarkable. There is no cervical spine fractur e. No cervical lymphadenopathy is present. Multilevel degenerative changes within the cervical spine are present. The bilateral common carotid, cervical internal carotid and vertebral arteries are paten t. There is no stenosis, dissection or aneurysm within the neck. There is mild plaque at the origin o f the left vertebral artery without stenosis. IMPRESSION: Unremarkable CTA of the neck. ACT 112: Negative or not required by law. Electronically signed by: Rajendra Cohen M.D. 12/06/2023 4:55 PM
--- NOTE | 2023-12-06 16:59 | CT Scan Report ---
CT angio head w con CLINICAL HISTORY: 63 years-old Male with capone. Acute headache. COMPARISON STUDY: Head CT of same day and also 12/04/2023 TECHNIQUE: Following the IV administration of 118 cc of Optiray, CT angiogram of the brain was perfor med from the skull base to the vertex. Images are reviewed in the axial, sagittal, and coronal planes . 3-D MIPS images are created and assessed. IV contrast was administered without complication. All me asurements were obtained according to NASCET criteria. A dose lowering technique was utilized adherin g to the principles of ALARA. FINDINGS: CT ANGIOGRAM OF THE BRAIN: The imaged bilateral internal carotid arteries are patent. The bilateral anterior and middle cerebral arteries are also patent. The vertebrobasilar system and posterior cerebral arteries are widely javier nt. There is no aneurysm, high-grade stenosis, or proximal branch occlusion identified. Dural sinuses appear patent. Atrophic cerebellum redemonstrated. IMPRESSION: Unremarkable CTA of the head ACT 112: Negative or not required by law. The above report was generated using voice recognition software. It may contain grammatical, syntax o r spelling errors. Electronically signed by: Bentley Vick M.D. 12/06/2023 4:58 PM
--- NOTE | 2023-12-06 17:19 | History & Physical Report ---
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 He was spiking a fever on but currently afebrile. Clinically he is having chills and appears sicker than just a routine SIADH. ?reaction to the COVID vaccine Procalcitonin, CRP negative If spikes temperature overnight recommend repeating blood cultures but no source of infection for antibiotics and reassuringly blood cultures were negative on with continued negative procalcitonin, consider tick borne disease workup Observe overnight (3) Hypertension: Plan: Hold olmesartan - only started this at recent PCP appointment and only took for 2 days (4) Moderate obstructive sleep apnea: Plan: CPAP HS (5) Respiratory alkalosis: Plan: Secondary to hyperventilation from current illness Plan VTE prophylaxis - Lovenox 40mg SQ daily Diet - regular, fluid restricted Disposition - admit to med/tele Admission and Anticipated Discharge Date Admission Date: December 07, 2023 History of Present Illness Chief Complaint: Generalized weakness Confusion Primary Care Provider: Mick Dewitt MD Prashant Gonzalez is a 63-year-old male who presents to the ER with generalized weakness and chills. Symptoms started following his physical on the when he received his COVID vaccine. Later that night around 9:30pm he started getting chills, generalized myalgias, generalized weakness and loose stool with a bad headache. Symptoms continued and he became nauseous with dry heaving and abdominal cramps throughout the night before he came to the ER on . In the ER he was febrile but WBC and procalcitonin were normal and blood cultures have subsequently turned out to be negative. Imaging with CXR, CT head and CT abdomen pelvis with no acute findings. He was also noticed to have a sodium of 129. He was given acetaminophen, ibuprofen and ondansetron in the ER and felt significantly improved. His concentration and confusion has become worse since and he has been shaking more today with associated lightheadedness. He has had reduced appetite but no dysphagia or odynophagia. He called his PCP office who couldn't see him the same day therefore he was advised to come to the ER. At his PCP office he was prescribed Keflex for his left 1st toe for possible paronychia but reports never taking this. His toe is no worse and not erythematous. He was also prescribed olmesartan for his blood pressure but reports only taking this for 2 days as he wasn't sure if that was causing his symptoms. Also planned to switch pantoprazole to famotidine although he is yet to do this and continues on pantoprazole. No other recent changes in medications - he has been on citalopram for years and onyl missed a couple of doses with this illness. On rosuvastatin for > 1 year. Allergies Allergy/AdvReac Type Severity Reaction Status Date / Time sulfamethoxazole AdvReac Mild Nauseated Verified 12/06/23 17:42 trimethoprim AdvReac Mild Nauseated Verified 12/06/23 17:42 Home Medications Medication Instructions Recorded Confirmed Type aspirin 81 mg tablet,delayed 81 mg PO QAM 09/13/20 12/06/23 History release rosuvastatin 20 mg tablet (Crestor) 20 mg PO DAILY 90 days #90 tabs 03/16/23 12/06/23 Rx famotidine 20 mg tablet 20 mg PO BID #180 tabs 11/30/23 12/06/23 Rx olmesartan 5 mg tablet 5 mg PO DAILY #90 tabs 11/30/23 12/06/23 Rx tadalafil 5 mg tablet 5 mg PO DAILY #30 tabs 11/30/23 12/06/23 Rx cephalexin 500 mg capsule 500 mg PO BID #14 caps 12/01/23 12/06/23 Rx citalopram 10 mg tablet 10 mg PO HS 12/06/23 12/06/23 History pantoprazole 40 mg tablet,delayed 40 mg PO QAM gerd 12/06/23 12/06/23 History release Past Med/Surg History Medical History Prediabetes Hypertension History of adenomatous polyp of colon Iliac artery aneurysm Under surveillance by [facility] vascular every 6 months GERD (gastroesophageal reflux disease) Controlled Depression Anxiety History of COVID-19 Dx 09/07/20 > symptoms at time: Head cold, loss of taste and smell > resolved except residual loss of smell Sleep apnea CPAP Herpes zoster without complication 3+ years ago Iliac artery aneurysm, left Thrombocytopenia Chronic, baseline platelets in the low 100's Tubular adenoma of colon Surgical History History of colonoscopy History of hernia repair right inguinal Family History Father Lumbar canal stenosis Alcohol abuse Hypertension Mother Diabetes Hyperlipemia Son FHx: suicide Brother Colonic polyp Brother Healthy adult Sister Colonic polyp Other DVT of leg (deep venous thrombosis) No family history of adverse response to anesthesia Social History Smoking Status: Never smoker Second Hand Exposure: No; Do You Dip or Chew Tobacco: No; Hx Alcohol Use: No Hx Substance Use: No Preferred Language: Danish Communication Ability: Effective Visual Impairment: No Limitations House Builder Required: No Beliefs That Will Affect Care: None marital status: Current Living Situation: Spouse current occupational status: employed current occupation: [employer] Feels Safe at Home: Yes Childhood Exposure to Second-Hand Smoke: No Diet: other Diet Comment: healthy eating Physical Activity Frequency: 5-6 Times per Week Seatbelt Use: always Sunscreen Use: Yes Assistive Devices: None Review of Systems Review of Systems: All systems reviewed & are unremarkable except as noted in HPI & below Physical Exam Constitutional: well developed and + ill appearing (chills); no acute distress Eyes: PERRL, conjunctivae normal, anicteric sclerae ENMT: external ear and nose normal, oropharynx normal Neck: trachea midline, no thyromegaly Respiratory: + tachypneic Auscultation: lungs teresa r to auscultation bilaterally; breath sounds present, no diminished lung sounds, no crackles, no rales, no rhonchi and no wheezes Cardiovascular: RRR, no murmur, no edema Gastrointestinal (Abdomen): normal bowel sounds, soft, nontender, no hepatosplenomegaly Musculoskeletal: no cyanosis or clubbing, extremities motor strength 5/5 Skin: no rashes, warm and dry Neurologic: moves all extremities and awake; not confused Psychiatric: A+Ox3, euthymic affect Results & Data Results & Data Vital Signs (Past 12 Hours) Vital Signs Temp Pulse Pulse Resp BP BP Pulse Ox 12/06/23 15:14 83 16 92 12/06/23 15:10 84 20 172/101 H 97 12/06/23 14:41 36.5 C 100 H 20 121/80 96 O2 Del Method 12/06/23 15:14 Room Air 12/06/23 15:10 Room Air 12/06/23 14:41 Room Air Laboratory Results Abnormal lab results 12/06/23 12/06/23 12/06/23 Range/Units 14:58 15:32 16:30 Hct 38.7 L (42.0-52.0) % MCHC 37.5 H (32.0-36.0) g/dL RDW Std Deviation 36.1 L (36.4-46.3) fL Plt Count 126 L (130-400) K/uL Lymphocytes # (Manual) 1.10 L (1.2-3.4) K/uL VBG pH 7.49 H (7.36-7.41) VBG pCO2 33 L (38-50) mmHg Sodium 126 L (136-145) mmol/L Potassium 3.3 L (3.5-5.1) mmol/L Chloride 93 L (98-107) mmol/L Glucose 142 H (70-99(Fasting)) mg/dl Calcium 8.4 L (8.6-10.3) mg/dl Total Bilirubin 1.2 H (0.2-1.0) mg/dl Globulin 2.4 L (2.5-4.0) gm/dl Urine Protein 1+ H (Negative) Urine Glucose (UA) Trace H (Negative) Urine Blood Trace H (Negative) Urine Urobilinogen Positive H (Negative) Urine RBC (Auto) 3-5 H (0-2) /hpf Diagnostic Findings CT OF THE HEAD WITHOUT CONTRAST CLINICAL HISTORY: Headache. COMPARISON STUDY: MRI of the brain December 30, 2022. Head CT December 04, 2023. CT DOSE: 2032.85 mGy.cm TECHNIQUE: Helical axial images of the head were obtained without IV contrast. Automated exposure control was utilized for the study. A dose lowering technique was utilized adhering to the principles of ALARA. FINDINGS: No acute intracranial hemorrhage, midline shift or mass effect is present. The ventricular system is unremarkable. The basal cisterns are patent. No extra-axial collections are present. There are no findings to suggest acute d ural sinus thrombosis or acute territorial infarct. 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 No significant calvarial abnormalities are present. IMPRESSION: No acute intracranial findings. No change in appearance of the brain. CT angio head w con CLINICAL HISTORY: 63 years-old Male with capone. Acute headache. COMPARISON STUDY: Head CT of same day and also 12/04/2023 TECHNIQUE: Following the IV administration of 118 cc of Optiray, CT angiogram of the brain was performed from the skull base to the vertex. Images are reviewed in the axial, sagittal, and coronal planes. 3-D MIPS images are created and assessed. IV contrast was administered without complication. All measurements were obtained according to NASCET criteria. A dose lowering technique was utilized adhering to the principles of ALARA. FINDINGS: CT ANGIOGRAM OF THE BRAIN: The imaged bilateral internal carotid arteries are patent. The bilateral anterior and middle cerebral arteries are also patent. The vertebrobasilar system and posterior cerebral arteries are widely patent. There is no aneurysm, high-grade stenosis, or proximal branch occlusion identified. Dural sinuses appear patent. Atrophic cerebellum redemonstrated. IMPRESSION: Unremarkable CTA of the head CT ANGIOGRAPHY OF THE NECK WITH CONTRAST CLINICAL HISTORY: Headache. COMPARISON STUDY: No previous studies for comparison. Technique: CT angiography of the carotid and vertebral arteries was obtained using Optiray and 3D reconstruction on an independent workstation. NASCET criteria was utilized. Automated exposure control was utilized for the study. A dose lowering technique was utilized adhering to the principles of ALARA. Findings: Visualized portions of the lung apices are unremarkable. There is no cervical spine fracture. No cervical lymphadenopathy is present. Multilevel degenerative changes within the cervical spine are present. The bilateral common carotid, cervical internal carotid and vertebral arteries are patent. There is no stenosis, dissection or aneurysm within the neck. There is mild plaque at the origin of the left vertebral artery without stenosis. IMPRESSION: Unremarkable CTA of the neck. CT angio chest PE protocol HISTORY: 63 years-old Male with sob. Acute shortness of breath TECHNIQUE: Multiple CTA images of the chest were obtained after the intravenous administration of 118 ml Optiray. Coronal and sagittal MIPS were obtained from the axial data set and were submitted for review. All measurements were obtained according to NASCET criteria. A dose lowering technique was utilized adhering to the principles of ALARA. COMPARISON: 09/13/2020. FINDINGS: CTA: The heart is upper limits of normal in size. No pericardial effusion. Mild fusiform dilation of the ascending thoracic aorta at the level of the main pulmonary artery, 4.3 x 4.3 cm, previously 3.9 cm. There is no dissection. Suboptimal evaluation of the pulmonary arteries secondary to contrast bolus timing and respiratory motion artifact. No central pulmonary emboli identified. CT CHEST: Unremarkable thyroid. No pathologically enlarged lymph nodes. Trace pleural effusions. Mild right hemidiaphragmatic elevation. No pneumothorax or overt pulmonary edema. Mild subsegmental bibasilar atelectasis. No suspicious pulmonary nodules or masses. Minimal tracheobronchial secretions. Nonspecific bilateral perinephric stranding. Exophytic cyst of the superior pole right kidney. The spleen is mildly enlarged. Unremarkable soft tissues. No acute fracture. Developmental incomplete bony fusion involves the posterior elements of the upper thoracic spine. Midthoracic dextroscoliosis. IMPRESSION: 1. Limited evaluation of the pulmonary arterial tree as above. No central pulmonary emboli identified. 2. Mild subsegmental bibasilar atelectasis. 3. Fusiform dilation of the ascending thoracic aorta measures 4.3 cm. No dissection. XR chest 1V portable CLINICAL HISTORY: Sepsis. COMPARISON STUDY: Chest CT September 13, 2020. Chest radiograph December 04, 2023. FINDINGS: Lung volumes are normal. Lungs are clear. There is no pneumothorax or pleural effusion. Mild cardiomegaly is unchanged. Mediastinal contours are normal. There is no evidence for pulmonary edema. IMPRESSION: No acute cardiopulmonary findings. No change in appearance of the chest. Medications Administered ER medications given: Normal saline 1 L bolus ECG Rate (beats per minute): 82 Rhythm: normal sinus Findings: + LAFB Comparison ECG Date: from (November 02, 2021) Change: no significant change Code Status & VTE Plan Code Status Full VTE Prophylaxis Plan VTE Prophylaxis will be ordered: Yes PG Care Time/CCT Total # of Minutes Spent Total Time Spent with Patient: Total time spent is greater than 50% in coordination of care (as documented) at patient's floor/unit and/or counseling patient: Coding Level of Care Code 47549 INT INP/OBS CARE 3/75MIN Diagnoses Acute hyponatremia E87.1 Generalized weakness R53.1 Hypertension I10 Moderate obstructive sleep apnea G47.33 Respiratory alkalosis E87.3
[2023-12-06] MEDS: POTASSIUM CHLORIDE CRTAB 20 MEQ TABCR PO STA (17:29)
[2023-12-06] MEDS: POTASSIUM CHLORIDE 10 MEQ TABCR PO STA (17:53)
[2023-12-06 21:14] LABS: Anion Gap 8 (3-11); Calcium 8.1 mg/dl (8.6-10.3); Carbon Dioxide 23 mmol/L (21-32); Chloride 96 mmol/L (98-107); Potassium 3.6 mmol/L (3.5-5.1); Sodium 127 mmol/L (136-145)
[2023-12-06 21:20] LABS: BUN Creatinine Ratio 11.5 (10-20); Blood Urea Nitrogen 12 mg/dl (6-23); Est GFR (African American) 87.5 ml/min; Est GFR (Non-African American) 75.5 ml/min; Glucose 125 mg/dl (70-99(Fasting))
[2023-12-06] MEDS: CITALOPRAM 20 MG TAB PO SCH (22:39)
[2023-12-06] MEDS: SODIUM CHLORIDE 1 GM TABLET PO SCH (22:40)
[2023-12-07 02:03] LABS: C Reactive Protein < 0.50 mg/dl (0-0.5)
[2023-12-07 02:04] LABS: Thyroid Stimulating Hormone 1.544 uIu/ml (0.300-4.500)
[2023-12-07 02:20] LABS: Total Protein Urine Random 100.9 mg/dl (0-11.9)
[2023-12-07 02:26] LABS: Creatinine Urine Random 136.2 mg/dl; Protein Creatinine Ratio Urine 0.7 (0-0.2)
[2023-12-07] MEDS: ACETAMINOPHEN 325 MG TAB PO PRN (07:34)
[2023-12-07] MEDS: ASPIRIN 81 MG ECTAB PO SCH (08:20)
[2023-12-07] MEDS: ROSUVASTATIN CALCIUM 20 MG TAB PO SCH (08:20)
[2023-12-07] MEDS: PANTOprazole 40 MG TAB PO SCH (08:20)
[2023-12-07] MEDS: ENOXAPARIN INJ 40 MG/0.4 ML SYR SQ SCH (08:20)
[2023-12-07 09:20] LABS: Basophils # (auto) 0.04 K/uL (0.00-0.20); Basophils % (auto) 0.5 %; Hematocrit (blood only) 36.2 % (42.0-52.0); Hemoglobin 13.6 g/dl (14.0-18.0); Immature Granulocytes % (auto) 1.3 %; Lymphocytes # (auto) 1.29 K/uL (1.20-3.40); Lymphocytes % (auto) 16.2 %; Mean Corpuscular Hemoglobin 31.1 pg (25.0-34.0); Mean Corpuscular Hgb Conc 37.6 g/dL (32.0-36.0); Mean Corpuscular Volume 82.8 fL (80.0-100.0); Mean Platelet Volume 11.1 fL (9.4-12.4); Monocytes % (auto) 8.8 %; Neutrophils # (auto) 5.82 K/uL (1.40-6.50); Neutrophils % (auto) 73.2 %; Platelet Count 111 K/uL (130-400); RDW Coefficient of Variation 11.9 % (11.5-14.5); RDW Standard Deviation 36.3 fL (36.4-46.3); Red Blood Count 4.37 M/uL (4.70-6.10); White Blood Count 7.95 K/ul (4.8-10.8)
[2023-12-07] MEDS ORDERED: VANCOMYCIN CONSULT ACTIVE PRN (09:29)
[2023-12-07 09:38] LABS: Procalcitonin 0.06 ng/ml (0-0.5)
[2023-12-07 09:42] LABS: Alanine Aminotransferase 26 U/L (7-52); Albumin Globulin Ratio 1.8 (0.9-2); Albumin Level 4.1 gm/dl (3.4-5.0); Alkaline Phosphatase 50 U/L (34-104); Anion Gap 9 (3-11); Aspartate Aminotransferase 30 U/L (13-39); BUN Creatinine Ratio 14.1 (10-20); Bilirubin,Total 1.3 mg/dl (0.2-1.0); Blood Urea Nitrogen 14 mg/dl (6-23); C Reactive Protein < 0.50 mg/dl (0-0.5); Calcium 8.6 mg/dl (8.6-10.3); Carbon Dioxide 22 mmol/L (21-32); Chloride 95 mmol/L (98-107); Creatinine Clr Calc Pharmacy 89.8 ml/min; Est GFR (African American) 92.9 ml/min; Est GFR (Non-African American) 80.2 ml/min; Globulin 2.3 gm/dl (2.5-4.0); Glucose 116 mg/dl (70-99(Fasting)); Magnesium 1.9 mg/dl (1.7-2.4); Potassium 3.3 mmol/L (3.5-5.1); Sodium 126 mmol/L (136-145); Total Protein 6.4 gm/dl (6.0-8.3)
[2023-12-07 09:45] LABS: Adenovirus PCR Not Detected (NotDetected); Bordetella parapertussis PCR Not Detected (NotDetected); Bordetella pertussis PCR Not Detected (NotDetected); Chlamydia pneumoniae PCR Not Detected (NotDetected); Coronavirus 229E PCR Not Detected (NotDetected); Coronavirus CoV-2 (COVID19)PCR Not Detected (NotDetected); Coronavirus HKU1 PCR Not Detected (NotDetected); Coronavirus NL63 PCR Not Detected (NotDetected); Coronavirus OC43PCR Not Detected (NotDetected); Human Metapneumovirus PCR Not Detected (NotDetected); Influenza A PCR Not Detected (NotDetected); Influenza B PCR Not Detected (NotDetected); Mycoplasma pneumoniae PCR Not Detected (NotDetected); Parainfluenza Virus 1 PCR Not Detected (NotDetected); Parainfluenza Virus 2 PCR Not Detected (NotDetected); Parainfluenza Virus 3 PCR Not Detected (NotDetected); Parainfluenza Virus 4 PCR Not Detected (NotDetected); Respiratory Syncytial VirusPCR Not Detected (NotDetected); Rhinovirus/Enterovirus PCR Not Detected (NotDetected)
[2023-12-07] MEDS: DOXYCYCLINE HYCLATE 100 MG CAP PO SCH (09:50)
[2023-12-07] MEDS: cefTRIAXone SODIUM 2,000 MG in DEXTROSE 5 % MINI-B 50 ML IV SCH (09:50)
[2023-12-07 10:00] LABS: Ferritin 479.6 ng/ml (8-388)
[2023-12-07 10:04] LABS: Lyme Screen Rflx Confirmation Negative (Negative)
[2023-12-07] MEDS: VANCOMYCIN HCL 2,250 MG in SODIUM CHLORIDE 0.9% 500 ML IV ONE (10:31)
--- NOTE | 2023-12-07 11:01 | Infectious Disease Consult ---
Date of Consultation December 07, 2023 Assessment & Plan (1) Fever: (2) Generalized weakness: (3) Headache: Plan 63yo M with h/o HTN, sleep apnea on CPAP, h/o COVID in 2020, GERD who presented on 12/05 with feeling unwell, fevers and headaches x 1 wk, diarrhea x 2d (resolved currently), dry heaves, decreased energy, discoordination since COVID booster on 11/29. No travel, but frequent camping trips with recent tick noticed walking on him a few weeks ago. Here has been febrile up to 39.3, vss, on room air. WBC wnl. Cr and LFT wnl. Hyponatremia. Lactate wnl. PCT 0.07. ESR and CRP wnl. UA negative. Smear for anaplasma neg today and from 12/03, babesia smear negative 12/03, PCR in process. Lyme negative. Crockett negative. RPP and covid negative. Tickborne studies pending. CXR negative. Chest CTA neg for PE, atelectasis. CTH negative. CTA neck negative. I do not appreciate any meningeal signs and bacterial meningitis is low on ddx. However, he does have headaches and fever and with discoordination with c/f neuro dysfunction, I do think its reasonable to pursue an LP. I will start on empiric abx to be safe and if LP is negative, then we can discontinue those. He does have tick exposure and significant outdoors activities reported. He had negative lyme test and no anaplasma on smear, however would also rule out rickettsial infection and other tickborne illnesses (including viral). I will start empiric doxycycline for this and await result of studies. Blood cx have been sent and are in process. Respiratory pathogen is negative. Can also consider syphilis in ddx as well. Vaccine-related illness is also a possibility. 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 If questions or concerns, contact Infectious Disease Call Center . Araseli Jonas MD [facility], Division of Infectious Diseases [facility]: [phone] Consultation Information Consultation was provided via telemedicine using two-way real-time interactive telecommunication between the patient and the telemedicine provider. For the duration of the visit, the provider was performing the assessment from a different facility than the patient. This includesuse of bluetooth stethoscope forauscultationperformed by the telepresenter that the telemedicine provider can hear if described in the physical exam. Display Artist contact information: Please call [facility] Call Center . (Phone Number For Physician Use Only) After establishing a telemedicine visit, patient was: Patient was verified with two unique identifiers, Patient/authorized rep acknowledged consent and understanding and Gave permission to continue telehealth session Time Spent with Patient: Initial => 75 min History of Present Illness Reason for Consultation: fever of unknown origin Attending Physician: Lexis Harrison MD History of Present Illness 63yo M with h/o HTN, sleep apnea on CPAP, h/o COVID in 2020, GERD who presented on 12/05 with feeling unwell, fevers, headaches, and diarrhea. He states getting his COVID booster on 11/29, he had been doing well prior to that. PCP at that time also noted paronychia on his left great toe and prescribed keflex (not picked up) and also given Olmesartan (no flu symptoms at that time). He notes 12 hours after getting the vaccine, he developed diarrhea and ongoing headaches worse with coughing. He notes decreased energy. The diarrhea has resolved, but he is still getting headaches through last night. Also with fevers. He was seen in the ED on 12/03 and treated supportively. He has developed dry heaving, shaking, feels he has poor coordination, feeling unbalanced. He notes feeling delirious. He denies neck pain or stiffness. No back or joint pains, no vomiting or abdominal pain. He denies having any sick contacts, sore throat. He denies travel, but does hike and go camping frequently in the [facility], last one 1 week prior. A few weeks ago he noticed a tick walking on him after he had gotten home from a camping trip. He doesnt think he sustained a bite since he didnt notice a rash anywhere. No animal exposures. He works for the [employer]. Here has been febrile up to 39.3, vss, on room air. WBC wnl. Cr and LFT wnl. Hyponatremia. Lactate wnl. PCT 0.07. ESR and CRP wnl. UA negative. Smear for anaplasma neg today and from 12/03, babesia smear negative 12/03, PCR in process. Lyme negative. Crockett negative. RPP and covid negative. Tickborne studies pending. CXR negative. Chest CTA neg for PE, atelectasis. CTH negative. CTA neck negative. Allergies Allergy/AdvReac Type Severity Reaction Status Date / Time sulfamethoxazole AdvReac Mild Nauseated Verified 12/06/23 17:42 trimethoprim AdvReac Mild Nauseated Verified 12/06/23 17:42 Home Medications Medication Instructions Recorded Confirmed Type aspirin 81 mg tablet,delayed 81 mg PO QAM 09/13/20 12/06/23 History release rosuvastatin 20 mg tablet (Crestor) 20 mg PO DAILY 90 days #90 tabs 03/16/23 12/06/23 Rx famotidine 20 mg tablet 20 mg PO BID #180 tabs 11/30/23 12/06/23 Rx olmesartan 5 mg tablet 5 mg PO DAILY #90 tabs 11/30/23 12/06/23 Rx tadalafil 5 mg tablet 5 mg PO DAILY #30 tabs 11/30/23 12/06/23 Rx cephalexin 500 mg capsule 500 mg PO BID #14 caps 12/01/23 12/06/23 Rx citalopram 10 mg tablet 10 mg PO HS 12/06/23 12/06/23 History pantoprazole 40 mg tablet,delayed 40 mg PO QAM gerd 12/06/23 12/06/23 History release Patient History Medical History Prediabetes Hypertension History of adenomatous polyp of colon Iliac artery aneurysm Under surveillance by [facility] vascular every 6 months GERD (gastroesophageal reflux disease) Controlled Depression Anxiety History of COVID-19 Dx 09/07/20 > symptoms at time: Head cold, loss of taste and smell > resolved except residual loss of smell Sleep apnea CPAP Herpes zoster without complication 3+ years ago Iliac artery aneurysm, left Thrombocytopenia Chronic, baseline platelets in the low 100's Tubular adenoma of colon Surgical History History of colonoscopy History of hernia repair right inguinal Family History Father Lumbar canal stenosis Alcohol abuse Hypertension Mother Diabetes Hyperlipemia Son FHx: suicide Brother Colonic polyp Brother Healthy adult Sister Colonic polyp Other DVT of leg (deep venous thrombosis) No family history of adverse response to anesthesia Social History Smoking Status: Never smoker Second Hand Exposure: No; Do You Dip or Chew Tobacco: No; Hx Alcohol Use: No Hx Substance Use: No Preferred Language: Guyanese Communication Ability: Effective Visual Impairment: No Limitations Fire Watcher Required: No Beliefs That Will Affect Care: None marital status: Current Living Situation: Spouse current occupational status: employed current occupation: [employer] Feels Safe at Home: Yes Childhood Exposure to Second-Hand Smoke: No Diet: other Diet Comment: healthy eating Physical Activity Frequency: 5-6 Times per Week Seatbelt Use: always Sunscreen Use: Yes Assistive Devices: None Review of System 10-point review of systems reviewed and are negative except for as above. Physical Exam Physical Exam: General: Awake, no acute distress, appears exhausted HEENT: NC/AT, EOMI, mmm Neck: supple Lungs: respirations non-labored Heart: nl peripheral perfusion Abdomen: soft, NT/ND Back: no spinal tenderness Ext: no LE edema Skin: no rash Neuro: O x 3 Results & Data Vital Signs (Past 12 Hours) Vital Signs Temp Pulse Pulse Pulse Resp BP Pulse Ox 12/07/23 08:17 38.5 C H 12/07/23 07:39 39.3 C H 66 16 155/81 H 94 12/07/23 07:30 12/07/23 07:13 75 12/07/23 02:54 37.6 C H 75 20 174/90 H 91 12/07/23 01:08 38.4 C H 90 20 131/85 94 12/07/23 00:00 66 19 178/101 H 94 12/06/23 23:07 68 O2 Del Method 12/07/23 08:17 12/07/23 07:39 Room Air 12/07/23 07:30 Room Air 12/07/23 07:13 12/07/23 02:54 Room Air 12/07/23 01:08 Room Air 12/07/23 00:00 Room Air 12/06/23 23:07 Laboratory Results labs reviewed Diagnostic Findings imaging reviewed (1) Fever Fever type: unspecified Qualified Code(s): R50.9 - Fever, unspecified
--- NOTE | 2023-12-07 12:10 | Pharmacy Report ---
Pharmacy PK ABX Note - Date of Service December 07, 2023 - Assessment and Plan Assessment 63 year old M receiving vancomycin, rocephin and doxycycline. Patient presenting with fevers/headache x 1 week. Recently received COVID booster 11/29. Recently prescribed keflex for paronychia of toe, however has not started medication. Workup for possible lymes pending and FISH CHECKER infection. Blood cultures pending. Plan Vancomycin * Loading dose: 2250 mg x 1 (~24 mg/kg/dose) * Maintenance dose: 1250 mg IV every 12 hours * Regimen is predicted to achieve target AUC/JAY of 400-600 mg/L.hr * Will plan to collect random level if continued >48 hours Pharmacy will continue to follow and will adjust dose/frequency as necessary. Thank you. Pharmacy has transitioned to AUC monitoring for vancomycin. AUC/JAY is the preferred PK/PD target and is associated with decreased risk of nephrotoxicity compared to traditional trough targets.
[2023-12-07 12:24] LABS: Adenovirus F 40/41 PCR Not Detected (NotDetected); Astrovirus PCR Not Detected (NotDetected); Campylobacter PCR Not Detected (NotDetected); Cryptosporidium PCR Not Detected (NotDetected); Cyclospora cayetanensis PCR Not Detected (NotDetected); Entamoeba histolytica PCR Not Detected (NotDetected); Enteroaggregative E.coli(EAEC) Not Detected (NotDetected); Enteropathogenic E.coli (EPEC) Not Detected (NotDetected); Enterotoxigenic E.coli (ETEC) Not Detected (NotDetected); Giardia lamblia PCR Not Detected (NotDetected); Norovirus GI/GII PCR Not Detected (NotDetected); Plesiomonas shigelloides PCR Not Detected (NotDetected); Rotavirus A PCR Not Detected (NotDetected); Salmonella PCR Not Detected (NotDetected); Sapovirus PCR Not Detected (NotDetected); Shiga-like Toxin E.coli (STEC) Not Detected (NotDetected); Shigella/Enteroinvasive E.coli Not Detected (NotDetected); Vibrio cholerae PCR Not Detected (NotDetected); Vibrio species PCR Not Detected (NotDetected); Yersinia enterocolitica PCR Not Detected (NotDetected)
--- NOTE | 2023-12-07 14:04 | Fluoroscopy Report ---
Fluoroscopic guided lumbar puncture INDICATION: Mental status change; rule out encephalitis PROCEDURE: Procedure and risks were explained. Informed consent was obtained. A final timeout was com pleted. The patient was placed prone on the fluoroscopic exam table. The lower lumbar region was prep ped and draped in sterile fashion. 1% lidocaine was utilized for skin anesthesia. Utilizing fluoroscopic guidance, a 22-gauge spinal needle was advanced into the intrathecal space at the L2-3 disc space level. 2 spot images were obtained. Approximately 8 mL of clear CSF fluid was sen t to the lab for analysis. The needle was removed and Band-Aid applied. The patient tolerated the pro cedure well. Vital signs will be monitored postprocedure. Fluoroscopy time was 17 seconds. Study dose is 16.33 mGy. IMPRESSION: Lumbar puncture as above. Performed, dictated, and signed by Daryl Sanchez PA-C; to be co-signed by Dr. Bentley Vick. Electronically signed by: Bentley Vick M.D. 12/07/2023 2:31 PM
[2023-12-07 14:35] LABS: Total Protein CSF 77.1 mg/dl (15-45)
[2023-12-07 15:48] LABS: Appearance CSF Clear; CSF Count Tube # 3; CSF Xanthrochromic No xanthochromia; Color CSF Colorless; Mononuclear WBC CSF Auto 97.8 %; Polynuclear WBC CSF Auto 2.2 %; Red Blood Cell CSF Manual 0 (0-); White Blood Cell CSF Auto 47 /uL (0-5)
--- NOTE | 2023-12-07 15:48 | Hospitalist Progress Note ---
Date of Service December 07, 2023 Assessment & Plan (1) Meningitis: Plan: P/w fevers, weakness, headache x 1 week after receiving COVID booster vax. With SIADH. No clear source of infection initially LP obtained 12/06 and WBCs high at 47, glucose normal, protein high, BioFire negative, Gram stain on CSF neg for organisms, culture pending Blood cultures NGTD. No leukocytosis, UA negative for infection, Lyme titer, Anaplasmosis smear negative CT A/P from 12/03 nothing acute. CTA head and neck negative, CT head negative, CTA chest no PNA or PE and remains with TAA 4.3 cm Likely this is aseptic meningitis, perhaps from COVID vaccine? 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 this can be stopped now as LP is negative for bacterial infection - f/u BCX -add Zofran prn nausea, Tylenol prn headache or fever -consult Neuro for further input as to whether this is infectious vs possible autoimmune (2) Fever: Plan: as above add tylenol prn fever (3) Nausea vomiting and diarrhea: Plan: resolved now add Zofran prn (4) Acute hyponatremia: Plan: Serum osm low,Na+ low at 126 on arrival, urine osm > 300 and Na > 20 Cortisol appropriately high TSH normal Suspect SIADH due to meningitis/encephalitis Na+ improving today up to 129 COntinue salt tabs 1g BID, fluid restrict 1L (5) Hypertension: Plan: Hold olmesartan - only started this at recent PCP appointment and only took for 2 days May need antihypertensive added back on (6) Moderate obstructive sleep apnea: Plan: CPAP HS (7) Thrombocytopenia: Plan: mildly low plts, stable from baseline has mild splenomegaly on CT abd/pel recommend f/u with Heme as outpt (8) Depression: Plan: stable continue home Celexa (9) History of stroke: Plan: seen on old brain MRI, asymptomatic continue ASA,Crestor (10) GERD with esophagitis: Plan: continue PPI Plan VTE prophylaxis - Lovenox 40mg SQ daily Disposition - continued stay on med/tele Admission and Anticipated Discharge Date Admission Date: December 06, 2023 Subjective Pt reports headache is gone, no further N/V and was able to eat breakfast. He just feels very fatigued, weak all over, and confused at times. Denies neck pain or stiffness. No rashes or new joint pains. Denies CP, SOB, sore throat. I discussed his care with ID. Also discussed his care with and daughter at bedside Tele with NSR, rates 70s Physical Exam Constitutional: WD/WN, vitals as above Eyes: PERRL, conjunctivae normal, anicteric sclerae ENMT: external ear and nose normal, oropharynx normal Ears: no external ear abnormality, no EAC abnormality and no TM abnormality Neck: trachea midline, no thyromegaly Respiratory: normal respiratory effort, lungs clear to auscultation Cardiovascular: RRR, no murmur, no edema Chest (Breasts): Chest: normal inspection of chest Gastrointestinal (Abdomen): normal bowel sounds, soft, nontender, no hepatosplenomegaly Musculoskeletal: Extremities: extremities normal to inspection; no cyanosis and no clubbing Skin: no rashes, warm and dry (including toes-all normal) Neurologic: moves all extremities and awake; no focal motor deficits Psychiatric: A+Ox3, euthymic affect Lymphatic: no lymphedema Results & Data Results & Data Vital Signs (Past 12 Hours) Vital Signs Temp Pulse Pulse Resp BP Pulse Ox Pulse Ox 12/07/23 15:37 62 12/07/23 15:12 94 12/07/23 15:11 36.9 C 58 L 16 162/87 H 94 12/07/23 14:40 37.2 C 57 L 18 144/81 H 94 12/07/23 14:24 37.1 C 57 L 18 142/77 H 96 12/07/23 14:09 37.2 C 59 L 18 143/85 H 95 12/07/23 11:38 37.4 C 55 L 16 136/67 95 12/07/23 08:17 38.5 C H 12/07/23 07:39 39.3 C H 66 16 155/81 H 94 12/07/23 07:30 12/07/23 07:13 75 O2 Del Method O2 Del Method 12/07/23 15:37 12/07/23 15:12 Room Air 12/07/23 15:11 Room Air 12/07/23 14:40 Room Air 12/07/23 14:24 Room Air 12/07/23 14:09 Room Air 12/07/23 11:38 Room Air 12/07/23 08:17 12/07/23 07:39 Room Air 12/07/23 07:30 Room Air 12/07/23 07:13 Laboratory Results CBC, CMP, CRP, ESR, Lyme titer, monospot, ANaplasmosis smear, repeat BMP, blood cxs, CSF studies, viral respiratory BioFire all reviewed PG Care Time/CCT Total # of Minutes Spent Total Time Spent with Patient: Total time spent is greater than 50% in coordination of care (as documented) at patient's floor/unit and/or counseling patient: Coding Level of Care Code 10081 SUB INP/OBS CARE 3/50MIN Diagnoses Meningitis G03.9 Fever R50.9 Fever type: unspecified Nausea vomiting and diarrhea R11.2; R19.7 Acute hyponatremia E87.1 Hypertension I10 Moderate obstructive sleep apnea G47.33 Thrombocytopenia D69.6 Depression F32.9 History of stroke Z86.73 GERD with esophagitis K21.0 (2) Fever Fever type: unspecified Qualified Code(s): R50.9 - Fever, unspecified
[2023-12-07] MEDS: ONDANSETRON INJ 2 MG/ML 2 ML VIAL IV PRN (15:59)
[2023-12-07 16:00] LABS: Cryptococcus neoformans/ga PCR Not Detected (NotDetected); Cytomegalovirus PCR Not Detected (NotDetected); Enterovirus PCR Not Detected (NotDetected); Escherichia coli K1 PCR Not Detected (NotDetected); Haemophilius influenzae PCR Not Detected (NotDetected); Herpes Simplex Virus 1 PCR Not Detected (NotDetected); Herpes Simplex Virus 2 PCR Not Detected (NotDetected); Human Herpes Virus 6 PCR Not Detected (NotDetected); Human Parechovirus PCR Not Detected (NotDetected); Listeria monocytogenes PCR Not Detected (NotDetected); Neisseria meningitidis PCR Not Detected (NotDetected); Streptococcus agalactiae PCR Not Detected (NotDetected); Streptococcus pneumoniae PCR Not Detected (NotDetected); Varicella Zoster Virus PCR Not Detected (NotDetected)
--- NOTE | 2023-12-07 16:15 | Electrocardiogram Report ---
Test Reason : Blood Pressure : / mmHG Vent. Rate : 090 BPM Atrial Rate : 000 BPM P-R Int : 000 ms QRS Dur : 088 ms QT Int : 370 ms P-R-T Axes : 000 -74 075 degrees QTc Int : 452 ms Accelerated Junctional rhythm Left anterior fascicular block Minimal voltage criteria for LVH, may be normal variant Nonspecific ST abnormality Abnormal ECG When compared with ECG of 04-DEC-2023 08:24, Junctional rhythm has replaced Sinus rhythm Non-specific change in ST segment in Inferior leads Confirmed by Marlon Jensen ([id number]) on 12/07/2023 4:15:05 PM Referred By: Victor Hugo Dewitt Confirmed By:Marlon Jensen
[2023-12-07 16:43] LABS: BUN Creatinine Ratio 15.6 (10-20); Calcium 8.5 mg/dl (8.6-10.3); Creatinine Clr Calc Pharmacy 92.6 ml/min; Est GFR (African American) 96.4 ml/min; Est GFR (Non-African American) 83.2 ml/min; Potassium 3.5 mmol/L (3.5-5.1)
[2023-12-07] MEDS ORDERED: VANCOMYCIN HCL 1,250 MG in SODIUM CHLORIDE 0.9% 250 ML IV SCH (22:00)
[2023-12-08 06:55] LABS: Basophils # (auto) 0.04 K/uL (0.00-0.20); Basophils % (auto) 0.5 %; Eosinophils # (auto) 0.01 K/uL (0.00-0.50); Eosinophils % (auto) 0.1 %; Hematocrit (blood only) 37.6 % (42.0-52.0); Hemoglobin 14.1 g/dl (14.0-18.0); Immature Granulocytes # (auto) 0.03 K/uL (0.01-0.20); Immature Granulocytes % (auto) 0.4 %; Lymphocytes % (auto) 19.8 %; Mean Corpuscular Hemoglobin 31.3 pg (25.0-34.0); Mean Corpuscular Hgb Conc 37.5 g/dL (32.0-36.0); Mean Corpuscular Volume 83.4 fL (80.0-100.0); Mean Platelet Volume 11.2 fL (9.4-12.4); Monocytes % (auto) 9.3 %; Neutrophils # (auto) 5.28 K/uL (1.40-6.50); Neutrophils % (auto) 69.9 %; Platelet Count 104 K/uL (130-400); RDW Standard Deviation 36.8 fL (36.4-46.3); Red Blood Count 4.51 M/uL (4.70-6.10); White Blood Count 7.56 K/ul (4.8-10.8)
[2023-12-08 07:31] LABS: Albumin Level 4.1 gm/dl (3.4-5.0); BUN Creatinine Ratio 16.3 (10-20); Bilirubin Direct 0.3 mg/dl (0-0.2); Bilirubin,Total 1.2 mg/dl (0.2-1.0); Calcium 8.7 mg/dl (8.6-10.3); Creatinine Clr Calc Pharmacy 78.8 ml/min; Est GFR (African American) 87.5 ml/min; Est GFR (Non-African American) 75.5 ml/min; Potassium 3.6 mmol/L (3.5-5.1); Total Protein 6.4 gm/dl (6.0-8.3)
--- NOTE | 2023-12-08 09:21 | Neurology Consultation ---
Date of Consultation December 08, 2023 Assessment & Plan (1) Meningitis: History of Present Illness Attending Physician: Kj Santiago MD History of Present Illness pt with headache and fever and being worked up for meningitis currently. pt had covid vaccine a week ago and on the same day he started to feel "bad" and fever and headache. pt CSF noted for elevated WBC and protein. ID following and he is on empiric tx for bacterial meningitis. pt this morning feeling still not well and difficulty using his hands to feed himself. no confusion. CTA head/neck and CT head negative. chart reviewed. admission HPI: 63yo M with h/o HTN, sleep apnea on CPAP, h/o COVID in 2020, GERD who presented on 12/05 with feeling unwell, fevers and headaches x 1 wk, diarrhea x 2d (resolved currently), dry heaves, decreased energy, discoordination since COVID booster on 11/29. No travel, but frequent camping trips with recent tick noticed walking on him a few weeks ago. Here has been febrile up to 39.3, vss, on room air. WBC wnl. Cr and LFT wnl. Hyponatremia. Lactate wnl. PCT 0.07. ESR and CRP wnl. UA negative. Smear for anaplasma neg today and from 12/03, babesia smear negative 12/03, PCR in process. Lyme negative. [place] negative. RPP and covid negative. Tickborne studies pending. CXR negative. Chest CTA neg for PE, atelectasis. CTH negative. CTA neck negative. I do not appreciate any meningeal signs and bacterial meningitis is low on ddx. However, he does have headaches and fever and with discoordination with c/f neuro dysfunction, I do think its reasonable to pursue an LP. I will start on empiric abx to be safe and if LP is negative, then we can discontinue those. He does have tick exposure and significant outdoors activities reported. He had negative lyme test and no anaplasma on smear, however would also rule out rickettsial infection and other tickborne illnesses (including viral). I will start empiric doxycycline for this and await result of studies. Blood cx have been sent and are in process. Respiratory pathogen is negative. Can also consider syphilis in ddx as well. Vaccine-related illness is also a possibility. Allergies Allergy/AdvReac Type Severity Reaction Status Date / Time sulfamethoxazole AdvReac Mild Nauseated Verified 12/06/23 17:42 trimethoprim AdvReac Mild Nauseated Verified 12/06/23 17:42 Home Medications Medication Instructions Recorded Confirmed Type aspirin 81 mg tablet,delayed 81 mg PO QAM 09/13/20 12/06/23 History release rosuvastatin 20 mg tablet (Crestor) 20 mg PO DAILY 90 days #90 tabs 03/16/23 12/06/23 Rx famotidine 20 mg tablet 20 mg PO BID #180 tabs 11/30/23 12/06/23 Rx olmesartan 5 mg tablet 5 mg PO DAILY #90 tabs 11/30/23 12/06/23 Rx tadalafil 5 mg tablet 5 mg PO DAILY #30 tabs 11/30/23 12/06/23 Rx cephalexin 500 mg capsule 500 mg PO BID #14 caps 12/01/23 12/06/23 Rx citalopram 10 mg tablet 10 mg PO HS 12/06/23 12/06/23 History pantoprazole 40 mg tablet,delayed 40 mg PO QAM gerd 12/06/23 12/06/23 History release Patient History Medical History Prediabetes Hypertension History of adenomatous polyp of colon Iliac artery aneurysm Under surveillance by [facility] vascular every 6 months GERD (gastroesophageal reflux disease) Controlled Depression Anxiety History of COVID-19 Dx 09/07/20 > symptoms at time: Head cold, loss of taste and smell > resolved except residual loss of smell Sleep apnea CPAP Herpes zoster without complication 3+ years ago Iliac artery aneurysm, left Thrombocytopenia Chronic, baseline platelets in the low 100's Tubular adenoma of colon Surgical History History of colonoscopy History of hernia repair right inguinal Family History Father Lumbar canal stenosis Alcohol abuse Hypertension Mother Diabetes Hyperlipemia Son FHx: suicide Brother Colonic polyp Brother Healthy adult Sister Colonic polyp Other DVT of leg (deep venous thrombosis) No family history of adverse response to anesthesia Social History Smoking Status: Never smoker Second Hand Exposure: No; Do You Dip or Chew Tobacco: No; Hx Alcohol Use: No Hx Substance Use: No Preferred Language: Croatian Communication Ability: Effective Visual Impairment: No Limitations Cloth Edge 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 Required: No Beliefs That Will Affect Care: None marital status: Current Living Situation: Spouse current occupational status: employed current occupation: [employer] Feels Safe at Home: Yes Childhood Exposure to Second-Hand Smoke: No Diet: other Diet Comment: healthy eating Physical Activity Frequency: 5-6 Times per Week Seatbelt Use: always Sunscreen Use: Yes Assistive Devices: CPAP Exam (Neuro) Physical Exam: HEENT: normocephalic Neuro: Mental: AOx4, fluent speech, normal comprehension, no apraxia, no L/R confusion, no neglect CN: PERRL, Full EOM, symmetric face, intact sensation t/o face, midline T/U/P, 5/5 SCM/traps. Motor: b/l hand tremors with posture and movements, normal tone and bulk, 5/5 t/o bilaterally Sens: intact to touch b/l grossly Coord: moderate dysmetry to FNF b/l. DTR: 1+ sym b/l Gait: deferred. Impression: 63 yo male with acute meningitis picture, most likely viral but given his onset after the covid vaccine, need to rule out possible autoimmune acute demyelinating disorder. Does not appears to be GBS. DDX also including hyponatremia related symptoms for his dysmetria. Recommendations: please get mri brain with RANI please send CSF for GQ1b antibody also close monitoring for his hyponatremia. continue supportive care will follow. Chart reviewed I have spent more than 50% educating patient about potential diagnosis and neurological evaluation and coordinating care with patient's treatment team. Total time spent (including chart review and coordination of care): 60 min (this includes chart review). Results & Data Vital Signs (Past 12 Hours) Vital Signs Temp Pulse Pulse Resp BP Pulse Ox O2 Del Method 12/08/23 07:48 37.3 C 60 16 153/85 H 97 Room Air 12/08/23 07:00 63 12/08/23 03:13 36.8 C 61 18 138/84 97 BiPAP 12/08/23 00:06 60 12/07/23 22:41 36.8 C 59 L 18 172/97 H 97 CPAP PG Care Time/CCT Total # of Minutes Spent Total Time Spent with Patient: Total time spent is greater than 50% in coordination of care (as documented) at patient's floor/unit and/or counseling patient: Coding Level of Care Code 75023 IN/OBS CONSULT LVL 4,60M Diagnoses Meningitis G03.9
--- NOTE | 2023-12-08 09:59 | Infectious Disease Progress Nt ---
Date of Service December 08, 2023 Assessment & Plan (1) Fever: (2) Generalized weakness: (3) Headache: Plan 63yo M with h/o HTN, sleep apnea on CPAP, h/o COVID in 2020, GERD who presented on 12/05 with feeling unwell, fevers and headaches x 1 wk, diarrhea x 2d (resolved currently), dry heaves, decreased energy, discoordination since COVID booster on 11/29. No travel, but frequent camping trips with recent tick noticed walking on him a few weeks ago. Here has been febrile up to 39.3, vss, on room air. WBC wnl with lymphopenia. Cr and LFT wnl. Hyponatremia. Lactate wnl. PCT 0.07. ESR and CRP wnl. UA negative. Smear for anaplasma neg today and from 12/03, babesia smear negative 12/03, PCR in process. Lyme negative. [place] negative. RPP and covid negative. Tickborne studies pending. CXR negative. Chest CTA neg for PE, atelectasis. CTH negative. CTA neck negative. ID consulted 12/06. S/p LP with 47 WBC primarily monos, normal glucose, elevated protein to 77.1. ME panel neg including HSV. CSF lyme, VDRL, WNV, cx (including AFB/fungal) pending. Initially was started on Vanc/CTX, however given CSF results with negative gram stain and lack of meningeal signs, this was stopped. He was also started on doxycycline given reports of recent tick exposure, this is continued. CSF findings with monocyte predominance and elevated protein, negative gram stain, which doesnt seem consistent with bacterial meningitis. Given this and lack of meningeal symptoms, I stopped Vanc/CTX. Would still consider tickborne related illness (though CBC and LFTs do not have significant changes) vs viral. Given symptoms started 12h post COVID vaccine, aseptic meningoencephalitis after COVID vaccination is also a possibility vs vaccine-related autoimmune process (ie ADEM). Neuro onboard. # Headache, fevers, discoordination # Recent COVID vaccination - f/u CSF cx, west nile virus, lyme Ab, VDRL - tickborne studies in process: anaplasma, ehrlichia, babesia, rickettsia - f/u EBV, Hepatitis studies, Q fever, Dengue - continue doxycycline 100mg PO twice daily - f/u BCX ID will continue to follow. If questions or concerns, contact Infectious Disease Call Center . Araseli Jonas MD [facility], Division of Infectious Diseases IDConnect: [phone] Admission and Anticipated Discharge Date Admission Date: December 06, 2023 Subjective Subsequent visit was provided via telemedicine using two-way real-time interactive telecommunication between the patient and the telemedicine provider. For the duration of the visit, the provider was performing the assessment from a different facility than the patient. This includesuse of bluetooth stethoscope forauscultationperformed by the telepresenter that the telemedicine provider can hear if described in the physical exam. Stile Ripsaw Operator contact information: Please call ID Connect Call Center . (Phone Number For Physician Use Only) After establishing a telemedicine visit, patient was: Patient was verified with two unique identifiers, Patient/authorized rep acknowledged consent and understanding and Gave permission to continue telehealth session Time Spent with Patient: Subsequent => 55 min Patient says he still feels unwell. Had headache earlier, notes ache in neck. Still feeling discoordinated. Physical Exam Physical Exam: General: Awake, no acute distress, appears exhausted HEENT: NC/AT, EOMI, mmm Neck: supple Lungs: respirations non-labored Heart: nl peripheral perfusion Abdomen: soft, NT/ND Back: no spinal or back tenderness Ext: no LE edema Skin: no rash Neuro: O x 3 Results & Data Vital Signs (Past 12 Hours) Vital Signs Temp Pulse Pulse Resp BP Pulse Ox O2 Del Method 12/08/23 07:48 37.3 C 60 16 153/85 H 97 Room Air 12/08/23 07:00 63 12/08/23 03:13 36.8 C 61 18 138/84 97 BiPAP 12/08/23 00:06 60 12/07/23 22:41 36.8 C 59 L 18 172/97 H 97 CPAP Laboratory Results Labs reviewed Diagnostic Findings Imaging reviewed (1) Fever Fever type: unspecified Qualified Code(s): R50.9 - Fever, unspecified
[2023-12-08] MEDS: LORazepam 0.5 MG in SYRINGE 0.25 ML IV ONE (11:41)
[2023-12-08] MEDS: GADOBUTROL 65ML VIAL IV ONE (12:47)
--- NOTE | 2023-12-08 13:21 | Magnetic Resonance Report ---
MRI OF THE BRAIN WITHOUT AND WITH IV CONTRAST CLINICAL HISTORY: fever, confusion COMPARISON STUDY: MRI of the brain December 30, 2022. Head CT and CTA of the head December 06, 2023. TECHNIQUE: Utilizing a 1.5 Kait magnet and dedicated coil, multiplanar, multiecho imaging of the br ain was performed pre and postcontrast administration. IV administration of 9.2 mL of Gadavist contr ast was uneventful. FINDINGS: There are no foci of restricted diffusion to suggest acute infarct. No acute intracranial h emorrhage, midline shift or mass effect is present. 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 Basa l cisterns are patent. There are no extra-axial collections. Flow-voids for the major intracranial ve ssels are present. Several white matter T2 hyperintense foci, predominantly within the bilateral fron sal and parietal lobes have developed since MRI of December 30, 2022. No associated enhancement is present . There is no mass effect. These measure up to 1.6 cm. There are also T2 hyperintense foci within the posterior limb of the left internal capsule and right cerebellar hemisphere. IMPRESSION: 1. No evidence for acute infarct. No acute intracranial hemorrhage. 2. Multifocal T2 hyperintense foci, predominantly within the white matter of the bilateral parietal a nd frontal lobes. Additional signal abnormality within the posterior limb of the left internal capsul e and right cerebellar hemisphere. The MRI appearance is nonspecific but raises the possibility of a demyelinating process such as Lyme disease or ADEM. Multiple sclerosis is considered less likely give n the clinical presentation. ACT 112: Negative or not required by law. Electronically signed by: Rajendra Cohen M.D. 12/08/2023 1:20 PM
[2023-12-08 13:32] LABS: EBV Nuclear Ag Antibody <18.00 U/mL; Epstein Barr Virus Early Ag Ab <9.00 U/mL
[2023-12-08] MEDS ORDERED: methylPREDNISolone 1,000 MG in SYRINGE 0 ML IV SCH (15:00)
--- NOTE | 2023-12-08 16:10 | Hospitalist Progress Note ---
Date of Service December 08, 2023 Assessment & Plan (1) Acute disseminated encephalomyelitis: Plan: Symptoms concerning for ADEM, per neurology MRI showed findings suggestive of ADEM as well Neurology recommended that I start the patient on 1 g of Solu-Medrol IV daily fo r 5 days. Order placed per neurology recommendation Neurology also recommended ordering MRI C-spine and T-spine Patient had received COVID vaccine which could have led to ADEM (2) Meningitis: Plan: P/w fevers, weakness, headache x 1 week after receiving COVID booster vax. With SIADH. No clear source of infection initially LP obtained 12/06 and WBCs high at 47, glucose normal, protein high, BioFire negative, Gram stain on CSF neg for organisms, culture pending Blood cultures NGTD. No leukocytosis, UA negative for infection, Lyme titer, Anaplasmosis smear negative CT A/P from 12/03 nothing acute. CTA head and neck negative, CT head negative, CTA chest no PNA or PE and remains with TAA 4.3 cm Likely this is aseptic meningitis, perhaps from COVID vaccine? Vs other viral cause -Follow west nile virus, lyme Ab, VDRL in CSF - tickborne studies in process: anaplasma, ehrlichia, babesia, rickettsia - f/u EBV, Hepatitis studies, Q fever, Dengue -Continue doxycycline 100mg PO twice daily -Vancomycin and ceftriaxone discontinued since LP studies negative for bacterial infection - f/u BCX -add Zofran prn nausea, Tylenol prn headache or fever (3) Fever: Plan: as above add tylenol prn fever (4) Nausea vomiting and diarrhea: Plan: resolved now add Zofran prn (5) Acute hyponatremia: Plan: Serum osm low,Na+ low at 126 on arrival, urine osm > 300 and Na > 20 Cortisol appropriately high TSH normal Suspect SIADH due to meningitis/encephalitis Na+ improving today up to 130 COntinue salt tabs 1g BID, fluid restrict 1L (6) Hypertension: Plan: Hold olmesartan - only started this at recent PCP appointment and only took for 2 days May need antihypertensive added back on (7) Moderate obstructive sleep apnea: Plan: CPAP HS (8) Thrombocytopenia: Plan: mildly low plts, stable from baseline has mild splenomegaly on CT abd/pel recommend f/u with Heme as outpt (9) Depression: Plan: stable continue home Celexa (10) History of stroke: Plan: seen on old brain MRI, asymptomatic continue ASA,Crestor (11) GERD with esophagitis: Plan: continue PPI Plan VTE prophylaxis - Lovenox 40mg SQ daily Disposition - continued stay on med/tele Admission and Anticipated Discharge Date Admission Date: December 06, 2023 Subjective Patient had MRI of the brain done today. He got half a milligram of IV Ativan prior to MRI. Currently drowsy. Daughter at the bedside. Per daughter, he is slightly better today in general but still completely off from his baseline. His gait is still very imbalanced. Review of Systems Review of Systems: All systems reviewed & are unremarkable except as noted in Subjective Physical Exam Physical Exam: General: Sleepy, arousable but dozes off to sleep during my conversation Heart: S1, S2/regular rate and rhythm, no murmur rubs or gallops Lungs: Clear to auscultation bilaterally. Normal effort Abdomen: Soft/nontender/nondistended. No hepatosplenomegaly Extremities: No clubbing/cyanosis. No edema Behavior: Unable to assess Results & Data Results & Data Vital Signs (Past 12 Hours) Vital Signs Temp Pulse Pulse Resp BP Pulse Ox O2 Del Method 12/08/23 15:59 37.5 C 64 16 129/79 95 BiPAP 12/08/23 15:00 57 L 12/08/23 15:00 12/08/23 11:40 36.6 C 57 L 16 134/75 96 Room Air 12/08/23 07:48 37.3 C 60 16 153/85 H 97 Room Air 12/08/23 07:00 63 O2 Del Method 12/08/23 15:59 12/08/23 15:00 12/08/23 15:00 Room Air 12/08/23 11:40 12/08/23 07:48 12/08/23 07:00 PG Care Time/CCT Total # of Minutes Spent Total Time Spent with Patient: Total time spent is greater than 50% in coordination of care (as documented) at patient's floor/unit and/or counseling patient: Coding Level of Care Code 03030 SUB INP/OBS CARE 2/35MIN Diagnoses Acute disseminated encephalomyelitis G04.00 Meningitis G03.9 Fever R50.9 Fever type: unspecified Nausea vomiting and diarrhea R11.2; R19.7 Acute hyponatremia E87.1 Hypertension I10 Moderate obstructive sleep apnea G47.33 Thrombocytopenia D69.6 Depression F32.9 History of stroke Z86.73 GERD with esophagitis K21.0 (3) Fever Fever type: unspecified Qualified Code(s): R50.9 - Fever, unspecified
[2023-12-08] MEDS: methylPREDNISolone 1,000 MG in DEXTROSE 5% 250 ML IV SCH (16:40)
[2023-12-09] MEDS: GADOBUTROL 65ML VIAL IV ONE (02:08)
--- NOTE | 2023-12-09 03:43 | Magnetic Resonance Report ---
Exam(s): MRI T SPINE W/WO Contrast IV Amt: 9cc gadavist EXAM: MR Thoracic Spine Without and With Intravenous Contrast CLINICAL HISTORY: Reason for exam: Look for demyelinating disease. TECHNIQUE: Magnetic resonance images of the thoracic spine without and with intravenous contrast in multiple planes. CONTRAST: Patient received 9cc gadavist of IV contrast COMPARISON: No relevant prior studies available. FINDINGS: Vertebrae: Unremarkable. No acute fracture. Discs/spinal canal/neural foramina: No acute findings. No significant disc disease. No spinal canal stenosis. Spinal cord: Unremarkable. Normal signal. No abnormal enhancement. Soft tissues: Unremarkable. IMPRESSION: Negative MRI of the thoracic spine. Electronically signed by: Keysha Méndez MD 12/09/23 03:42 AM
--- NOTE | 2023-12-09 04:41 | Magnetic Resonance Report ---
Exam(s): MRI C SPINE IV Amt: 9cc gadavist EXAM: MR Cervical Spine With Intravenous Contrast CLINICAL HISTORY: Reason for exam: Look for demyelinating disease. TECHNIQUE: Magnetic resonance images of the cervical spine with intravenous contrast in multiple planes. CONTRAST: Patient received 9cc gadavist of IV contrast COMPARISON: No relevant prior studies available. FINDINGS: The study is limited secondary to motion artifact. Vertebrae: There are 7 cervical type vertebral bodies with a mild generalized curve to the right and straightening the normal cervical lordosis. There is incomplete segmentation of C5 and C6. Otherwise, there is normal vertebral body height and alignment. The bone marrow signal is heterogeneous with reactive endplate changes. No acute fracture. There is narrowing of the proximal cervical spine secondary to congenitally short pedicles. Spinal cord: The cord is normal size, shape and signal characteristics. The craniocervical junction is normal without evidence of Chiari malformation.. No abnormal enhancement. Soft tissues: The cervical flow voids are intact. IMPRESSION: No evidence of acute cervical spine pathology. No evidence of demyelinating disease. Electronically signed by: Keysha Méndez MD 12/09/23 04:40 AM
[2023-12-09 06:40] LABS: Creatinine Clr Calc Pharmacy 83.6 ml/min; Est GFR (African American) 94.1 ml/min; Est GFR (Non-African American) 81.2 ml/min
--- NOTE | 2023-12-09 08:44 | Infectious Disease Progress Nt ---
Date of Service December 09, 2023 Assessment & Plan (1) Acute disseminated encephalomyelitis: (2) Fever: (3) Generalized weakness: (4) Headache: Plan 63yo M with h/o HTN, sleep apnea on CPAP, h/o COVID in 2020, GERD who presented on 12/05 with feeling unwell, fevers and headaches x 1 wk, diarrhea x 2d (resolved currently), dry heaves, decreased energy, discoordination since COVID booster on 11/29. No travel, but frequent camping trips with recent tick noticed walking on him a few weeks ago. Here has been febrile up to 39.3, vss, on room air. WBC wnl with lymphopenia. Cr and LFT wnl. Hyponatremia. Lactate wnl. PCT 0.07. ESR and CRP wnl. UA negative. Smear for anaplasma neg today and from 12/03, babesia smear negative 12/03, PCR in process. Lyme negative. [place] negative. RPP and covid negative. Tickborne studies pending, but so far Lyme negative. CXR negative. Chest CTA neg for PE, atelectasis. CTH negative. CTA neck negative. ID consulted 12/06. S/p LP with 47 WBC primarily monos, normal glucose, elevated protein to 77.1. ME panel neg including HSV. CSF lyme, VDRL, WNV, AFB pending. Initially was started on Vanc/CTX, however given CSF results with negative cx and lack of meningeal signs, this was stopped. He was also started on doxycycline given reports of recent tick exposure, this is continued. EBV capsid IgM/IgG positive suggesting acute infection. MRI brain with multifocal T2 hyperintense foci, predominantly within the white matter of bl parietal and frontal lobes, additional abnormalities within the posterior limb of left internal capsule and R cerebellar hemisphere; nonspecific but raises possibility of demyelinating process such as Lyme or ADEM, MS is considered less likely. MRI of C- and T- spine negative. Patient started on steroids for ADEM. Etiologies for ADEM including recent COVID vaccination as symptoms started 12h after vaccine dose. He also has EBV abs positive in a pattern that would suggest acute infection. This too may be an etiology. EBV management is supportive. 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 I will keep him on doxycycline pending remaining tick-borne panel studies. # ADEM # Positive EBV abs suggest acute infection # Recent COVID vaccination # Recent tick exposure - f/u CSF cx, [place] n[place] virus, lyme Ab, VDRL - tickborne studies in process: anaplasma, ehrlichia, babesia, rickettsia - f/ Hepatitis studies, Q fever, Dengue - continue doxycycline 100mg PO twice daily stop if tick studies negative ID will follow peripherally. If questions or concerns, contact Infectious Disease Call Center . Dr. Del Valle to take over service on Tuesday. Araseli Jonas MD [facility], Division of Infectious Diseases [facility]Connect: [phone] Admission and Anticipated Discharge Date Admission Date: December 06, 2023 Subjective This patient recommendation is based on a telemedicine consult request which was completed asynchronously through chart review and information provided by the primary physician. The patient was not seen or examined today. The evaluation is consultative in nature and all patient care and treatment decisions can either be accepted or rejected by the patient's primary hospital-based treating physician using their own independent medical judgment for their patient. Time Spent Reviewing Chart: 31+ minutes Results & Data Vital Signs (Past 12 Hours) Vital Signs Temp Pulse Pulse Resp BP Pulse Ox O2 Del Method 12/09/23 07:33 36.5 C 58 L 18 132/86 97 Room Air 12/09/23 07:00 47 L 12/09/23 02:52 36.2 C L 52 L 18 139/84 95 Room Air, CPAP 12/08/23 23:05 36.4 C L 62 18 156/87 H 95 Room Air, CPAP 12/08/23 21:51 62 (2) Fever Fever type: unspecified Qualified Code(s): R50.9 - Fever, unspecified
--- NOTE | 2023-12-09 09:38 | Neurology Progress Note ---
Date of Service December 09, 2023 Assessment & Plan (1) Acute disseminated encephalomyelitis: Admission and Anticipated Discharge Date Admission Date: December 06, 2023 Subjective pt overall feeling slightly better. able to feed himself better now. still feeling weak and hand dysmetria. mri brain noted for ADEM appearing lesions. spine mri negative. Results & Data Vital Signs (Past 12 Hours) Vital Signs Temp Pulse Pulse Resp BP Pulse Ox O2 Del Method 12/09/23 07:33 36.5 C 58 L 18 132/86 97 Room Air 12/09/23 07:00 47 L 12/09/23 02:52 36.2 C L 52 L 18 139/84 95 Room Air, CPAP 12/08/23 23:05 36.4 C L 62 18 156/87 H 95 Room Air, CPAP 12/08/23 21:51 62 Exam (Neuro) Physical Exam: Neuro: Mental: AOx4, fluent speech, normal comprehension, no apraxia, no L/R confusion, no neglect CN: PERRL, Full EOM, symmetric face, intact sensation t/o face, midline T/U/P, 5/5 SCM/traps. Motor: b/l hand tremors with posture and movements, normal tone and bulk, 5/5 t/o bilaterally Sens: intact to touch b/l grossly Coord: moderate dysmetry to FNF b/l. DTR: 1+ sym b/l upper and 2+ b/l lower ext. Gait: able to stand with walker and take few steps. negative romberg. Impression: 63 yo male with overall picture consistent with ADEM, likely from the covid vaccine reaction. Recommendations: Physical and occupational therapy consult. 5 days of IV steroids as planned (2/5 to day). if pt does not respond and continues to have decline, will consider IVIG tx. ADEM has very good prognosis, so expect pt will have good recovery. pending GQ1b antibody close monitoring for his hyponatremia. continue supportive care discussed with and daughter in details. will follow. Chart reviewed I have spent more than 50% educating patient about potential diagnosis and neurological evaluation and coordinating care with patient's treatment team. Total time spent (including chart review and coordination of care): 50 min (this includes chart review). PG Care Time/CCT Total # of Minutes Spent Total Time Spent with Patient: Total time spent is greater than 50% in coordination of care (as documented) at patient's floor/unit and/or counseling patient: Coding Level of Care Code 17919 SUB INP/OBS CARE MIN Diagnoses Acute disseminated encephalomyelitis G04.00
[2023-12-09 11:55] LABS: Calcium 8.2 mg/dl (8.6-10.3); Potassium 3.7 mmol/L (3.5-5.1)
[2023-12-09 12:01] LABS: Creatinine Clr Calc Pharmacy 86.2 ml/min; Est GFR (African American) 97.7 ml/min; Est GFR (Non-African American) 84.3 ml/min
--- NOTE | 2023-12-09 13:39 | Hospitalist Progress Note ---
Date of Service December 09, 2023 Assessment & Plan (1) Acute disseminated encephalomyelitis: Plan: Symptoms concerning for ADEM MRI showed findings suggestive of ADEM as well Was started on 1 g Solu-Medrol IV daily on 12/07. To be continued for 5 days. MRI C-spine and T-spine are negative Patient had received COVID vaccine which could have led to ADEM Clinically improving slowly in response to IV steroids GQ 1B antibody pending PT/OT consulted (2) Meningitis: Plan: P/w fevers, weakness, headache x 1 week after receiving COVID booster vax. With SIADH. No clear source of infection initially LP obtained 12/06 and WBCs high at 47, glucose normal, protein high, BioFire negative, Gram stain on CSF neg for organisms, culture pending Blood cultures NGTD. No leukocytosis, UA negative for infection, Lyme titer, Anaplasmosis smear negative CT A/P from 12/03 nothing acute. CTA head and neck negative, CT head negative, CTA chest no PNA or PE and remains with TAA 4.3 cm Likely this is aseptic meningitis, perhaps from COVID vaccine? Vs other viral cause -Follow [place] virus, lyme Ab, VDRL in CSF Positive EBV antibody suggest acute infection -Continue doxycycline 100mg PO twice daily for now. 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 Na+ stable at 130 COntinue salt tabs 1g BID, fluid restrict 1L (6) Hypertension: Plan: Hold olmesartan - only started this at recent PCP appointment and only took for 2 days May need antihypertensive added back on (7) Moderate obstructive sleep apnea: Plan: CPAP HS (8) Thrombocytopenia: Plan: mildly low plts, stable from baseline has mild splenomegaly on CT abd/pel recommend f/u with Heme as outpt (9) Depression: Plan: stable continue home Celexa (10) History of stroke: Plan: seen on old brain MRI, asymptomatic continue ASA,Crestor (11) GERD with esophagitis: Plan: continue PPI Plan VTE prophylaxis - Lovenox 40mg SQ daily Disposition - continued stay on med/tele Admission and Anticipated Discharge Date Admission Date: December 06, 2023 Subjective Per , patient is slightly better today. Seems more responsive. Able to converse better today. Balance is still off but better Review of Systems Review of Systems: All systems reviewed & are unremarkable except as noted in Subjective Physical Exam Physical Exam: General: Awake, conversant. Heart: S1, S2/regular rate and rhythm, no murmur rubs or gallops Lungs: Clear to auscultation bilaterally. Normal effort Abdomen: Soft/nontender/nondistended. No hepatosplenomegaly Extremities: No clubbing/cyanosis. No edema Behavior: Appropriate, cooperative Results & Data Results & Data Vital Signs (Past 12 Hours) Vital Signs Temp Pulse Pulse Resp BP Pulse Ox O2 Del Method 12/09/23 07:33 36.5 C 58 L 18 132/86 97 Room Air 12/09/23 07:00 47 L 12/09/23 02:52 36.2 C L 52 L 18 139/84 95 Room Air, CPAP Laboratory Results Abnormal lab results 12/09/23 Range/Units 05:24 Sodium 130 L (136-145) mmol/L Chloride 97 L (98-107) mmol/L Anion Gap 12 H (3-11) Glucose 163 H (70-99(Fasting)) mg/dl Calcium 8.2 L (8.6-10.3) mg/dl Diagnostic Findings Cervical Spine MRI 12/09/23 00:00 Exam(s): MRI C SPINE IV Amt: 9cc gadavist EXAM: MR Cervical Spine With Intravenous Contrast CLINICAL HISTORY: Reason for exam: Look for demyelinating disease. TECHNIQUE: Magnetic resonance images of the cervical spine with intravenous contrast in multiple planes. CONTRAST: Patient received 9cc gadavist of IV contrast COMPARISON: No relevant prior studies available. FINDINGS: The study is limited secondary to motion artifact. Vertebrae: There are 7 cervical type vertebral bodies with a mild generalized curve to the right and straightening the normal cervical lordosis. There is incomplete segmentation of C5 and C6. Otherwise, there is normal vertebral body height and alignment. The bone marrow signal is heterogeneous with reactive endplate changes. No acute fracture. There is narrowing of the proximal cervical spine secondary to congenitally short pedicles. Spinal cord: The cord is normal size, shape and signal characteristics. The craniocervical junction is normal without evidence of Chiari malformation.. No abnormal enhancement. Soft tissues: The cervical flow voids are intact. IMPRESSION: No evidence of acute cervical spine pathology. No evidence of demyelinating disease. Electronically signed by: Keysha Méndez MD 12/09/23 04:40 AM Thoracic Spine MRI 12/09/23 00:00 Exam(s): MRI T SPINE W/WO Contrast IV Amt: 9cc gadavist EXAM: MR Thoracic Spine Without and With Intravenous Contrast CLINICAL HISTORY: Reason for exam: Look for demyelinating disease. TECHNIQUE: Magnetic resonance images of the thoracic spine without and with intravenous contrast in multiple planes. CONTRAST: Patient received 9cc gadavist of IV contrast COMPARISON: No relevant prior studies available. FINDINGS: Vertebrae: Unremarkable. No acute fracture. Discs/spinal canal/neural foramina: No acute findings. No significant disc disease. No spinal canal stenosis. Spinal cord: Unremarkable. Normal signal. No abnormal enhancement. Soft tissues: Unremarkable. IMPRESSION: Negative MRI of the thoracic spine. Electronically signed by: Keysha Méndez MD 12/09/23 03:42 AM PG Care Time/CCT Total # of Minutes Spent Total Time Spent with Patient: Total time spent is greater than 50% in coordination of care (as documented) at patient's floor/unit and/or counseling patient: Coding Level of Care Code 32891 SUB INP/OBS CARE 2/35MIN Diagnoses Acute disseminated encephalomyelitis G04.00 Meningitis G03.9 Fever R50.9 Fever type: unspecified Nausea vomiting and diarrhea R11.2; R19.7 Acute hyponatremia E87.1 Hypertension I10 Moderate obstructive sleep apnea G47.33 Thrombocytopenia D69.6 Depression F32.9 History of stroke Z86.73 GERD with esophagitis K21.0 (3) Fever Fever type: unspecified Qualified Code(s): R50.9 - Fever, unspecified
[2023-12-09] MEDS: MELATONIN 3 MG TAB PO ONE (20:06)
[2023-12-10 06:42] LABS: BUN Creatinine Ratio 28.1 (10-20); Calcium 8.1 mg/dl (8.6-10.3); Est GFR (African American) 104.7 ml/min; Est GFR (Non-African American) 90.4 ml/min; Potassium 3.5 mmol/L (3.5-5.1)
--- NOTE | 2023-12-10 09:10 | Neurology Progress Note ---
Date of Service December 10, 2023 Assessment & Plan (1) Acute disseminated encephalomyelitis: Admission and Anticipated Discharge Date Admission Date: December 06, 2023 Subjective pt this morning feeling much better and much improved energy also. less hand tremors and motor control much improved. Results & Data Vital Signs (Past 12 Hours) Vital Signs Temp Pulse Pulse Resp BP Pulse Ox O2 Del Method 12/10/23 07:41 36.5 C 59 L 18 123/74 98 Room Air 12/10/23 05:58 49 L 12/10/23 03:55 36.2 C L 62 20 147/88 H 97 CPAP 12/10/23 00:29 36.4 C L 59 L 20 137/95 97 CPAP 12/09/23 23:08 Room Air 12/09/23 21:59 53 L Exam (Neuro) Physical Exam: Neuro: Mental: AOx4, fluent speech, normal comprehension, no apraxia, no L/R confusion, no neglect CN: PERRL, Full EOM, symmetric face, intact sensation t/o face, midline T/U/P, 5/5 SCM/traps. Motor: no more tremor noted in his hands. normal tone and bulk, 5/5 t/o bilaterally Sens: intact to touch b/l grossly Coord: very subtle dysmetry to FNF b/l (much improved from prior) DTR: 1+ sym b/l upper and 2+ b/l lower ext. Gait: walked around the [place]dr[place] per pt without much problem. Impression: 63 yo male with overall picture consistent with ADEM, likely from the covid vaccine reaction. Pt feeling much improved with steroid tx. pt also with hyponatremia. It is interesting that his sodium is not coming up as expected. ADEM has been associated with hyponatremia caused by SIADH or CSWS (cerebral salt wasting syndrome). Recommendations: consider work up for CSWS including additional labs: BNP, bicarbonate, phospate, Fractional excretion of uric acid. will defer to hospitalist for work up. pt currently no longer on water restriction. if pt has CSWS, we do not want to fluid restrict him. 5 days of IV steroids as planned (3/5 to day). since pt is improving well, i do not feel he will need IVIG. recommend po prednisone nicole after the 5 days of IV steroid, prednisone 60mg po daily for 3 days, 40mg daily x 3 days, 20mg po daily for 3 days and stop. repeat mri brain with RANI in about a month. pt prognosis is good, so expect pt will have full recovery. pending GQ1b antibody close monitoring for his hyponatremia. continue supportive care discussed with daughter in details. pt wants to go home soon as possible, he can likely go home after finishing the IV steroid (tuesday), it is ok to give his last dose of steroid on tuesday little early so he can be discharged at reasonable time (e.g. noon IV steroid infusion instead of late afternoon schedule). f/u with neurology clinic as outpt in about a month. Chart reviewed I have spent more than 50% educating patient about potential diagnosis and neurological evaluation and coordinating care with patient's treatment team. Total time spent (including chart review and coordination of care): 50 min (this includes chart review). PG Care Time/CCT Total # of Minutes Spent Total Time Spent with Patient: Total time spent is greater than 50% in coordination of care (as documented) at patient's floor/unit and/or counseling patient: Coding Level of Care Code 59890 SUB INP/OBS CARE 3/50MIN Diagnoses Acute disseminated encephalomyelitis G04.00
--- NOTE | 2023-12-10 11:56 | Hospitalist Progress Note ---
Date of Service December 10, 2023 Assessment & Plan (1) Acute disseminated encephalomyelitis: Plan: Symptoms concerning for ADEM MRI showed findings suggestive of ADEM as well Was started on 1 g Solu-Medrol IV daily on 12/07. To be continued for 5 days. MRI C-spine and T-spine are negative Patient had received COVID vaccine which could have led to ADEM Clinically improving slowly in response to IV steroids. No need for IVIG. GQ 1B antibody pending PT/OT consulted (2) Meningitis: Plan: P/w fevers, weakness, headache x 1 week after receiving COVID booster vax. With SIADH. No clear source of infection initially LP obtained 12/06 and WBCs high at 47, glucose normal, protein high, BioFire negative, Gram stain on CSF neg for organisms, culture pending Blood cultures NGTD. No leukocytosis, UA negative for infection, Lyme titer, Anaplasmosis smear negative With the alternative diagnosis of ADEM, aseptic meningitis seems to be less likely. Will continue doxycycline until tick studies come back negative CT A/P from 12/03 nothing acute. CTA head and neck negative, CT head negative, CTA chest no PNA or PE and remains with TAA 4.3 cm -Follow [place] virus, lyme Ab, VDRL in CSF Positive EBV antibody suggest acute infection -Continue doxycycline 100mg PO twice daily for now. Will stop if tick studies negative: Anaplasma, early Nyla, Babesia, Rickettsia -Vancomycin and ceftriaxone discontinued since LP studies negative for bacterial infection -add Zofran prn nausea, Tylenol prn headache or fever (3) Fever: Plan: as above add tylenol prn fever Resolved No more fever spikes (4) Nausea vomiting and diarrhea: Plan: resolved now add Zofran prn (5) Acute hyponatremia: Plan: Serum osm low,Na+ low at 126 on arrival, urine osm > 300 and Na > 20 Cortisol appropriately high TSH normal Suspect SIADH due to meningitis/encephalitis or cerebral salt wasting syndrome Na+ stable at 131 Discontinue fluid restriction COntinue salt tabs 1g BID (6) Hypertension: Plan: Hold olmesartan - only started this at recent PCP appointment and only took for 2 days May need antihypertensive added back on (7) Moderate obstructive sleep apnea: Plan: CPAP HS (8) Thrombocytopenia: Plan: mildly low plts, stable from baseline Check CBC in a.m. has mild splenomegaly on CT abd/pel recommend f/u with Heme as outpt (9) Depression: Plan: stable continue home Celexa (10) History of stroke: Plan: seen on old brain MRI, asymptomatic continue ASA,Crestor (11) GERD with esophagitis: Plan: continue PPI Plan VTE prophylaxis - Lovenox 40mg SQ daily Disposition - continued stay on med/tele Admission and Anticipated Discharge Date Admission Date: December 06, 2023 Subjective Patient is feeling better overall. He says that he is able to think more clearly. His coordination is improved. He was able to feed himself which is another improvement. He is able to walk to the bathroom without being afraid of falling. Overall he feels improved. Review of Systems Review of Systems: All systems reviewed & are unremarkable except as noted in Subjective Physical Exam Physical Exam: General: Awake, conversant. Heart: S1, S2/regular rate and rhythm, no murmur rubs or gallops Lungs: Clear to auscultation bilaterally. Normal effort Abdomen: Soft/nontender/nondistended. No hepatosplenomegaly Extremities: No clubbing/cyanosis. No edema Behavior: Appropriate, cooperative Results & Data Results & Data Vital Signs (Past 12 Hours) Vital Signs Temp Pulse Pulse Resp BP Pulse Ox O2 Del Method 12/10/23 11:46 36.6 C 54 L 20 135/76 97 Room Air 12/10/23 07:41 36.5 C 59 L 18 123/74 98 Room Air 12/10/23 05:58 49 L 12/10/23 03:55 36.2 C L 62 20 147/88 H 97 CPAP 12/10/23 00:29 36.4 C L 59 L 20 137/95 97 CPAP Laboratory Results Abnormal lab results 12/10/23 Range/Units 05:25 Sodium 131 L (136-145) mmol/L BUN 25 H (6-23) mg/dl BUN/Creatinine Ratio 28.1 H (10-20) Glucose 154 H (70-99(Fasting)) mg/dl Calcium 8.1 L (8.6-10.3) mg/dl PG Care Time/CCT Total # of Minutes Spent Total Time Spent with Patient: Total time spent is greater than 50% in coordination of care (as documented) at patient's floor/unit and/or counseling patient: Coding Level of Care Code 47188 SUB INP/OBS CARE MIN Diagnoses Acute disseminated encephalomyelitis G04.00 Meningitis G03.9 Fever R50.9 Fever type: unspecified Nausea vomiting and diarrhea R11.2; R19.7 Acute hyponatremia E87.1 Hypertension I10 Moderate obstructive sleep apnea G47.33 Thrombocytopenia D69.6 Depression F32.9 History of stroke Z86.73 GERD with esophagitis K21.0 (3) Fever Fever type: unspecified Qualified Code(s): R50.9 - Fever, unspecified
[2023-12-10] MEDS: IBUPROFEN 200 MG TAB PO STA (13:14)
[2023-12-10] MEDS: MELATONIN 3 MG TAB PO ONE (20:30)
[2023-12-11 06:15] LABS: Hematocrit (blood only) 36.1 % (42.0-52.0); Hemoglobin 13.7 g/dl (14.0-18.0); Mean Corpuscular Hemoglobin 31.6 pg (25.0-34.0); Mean Corpuscular Volume 83.2 fL (80.0-100.0); Mean Platelet Volume 11.4 fL (9.4-12.4); Platelet Count 153 K/uL (130-400); RDW Coefficient of Variation 12.2 % (11.5-14.5); RDW Standard Deviation 37.3 fL (36.4-46.3); Red Blood Count 4.34 M/uL (4.70-6.10); White Blood Count 9.87 K/ul (4.8-10.8)
[2023-12-11 06:19] LABS: BUN Creatinine Ratio 26.6 (10-20); Calcium 8.2 mg/dl (8.6-10.3); Creatinine Clr Calc Pharmacy 94.4 ml/min; Est GFR (African American) 98.9 ml/min; Est GFR (Non-African American) 85.3 ml/min; Potassium 3.8 mmol/L (3.5-5.1)
--- NOTE | 2023-12-11 08:35 | Neurology Progress Note ---
Date of Service December 11, 2023 Assessment & Plan (1) Acute disseminated encephalomyelitis: Admission and Anticipated Discharge Date Admission Date: December 06, 2023 Subjective pt feeling well. continue to show good improvement. Results & Data Vital Signs (Past 12 Hours) Vital Signs Temp Pulse Pulse Resp BP Pulse Ox O2 Del Method 12/11/23 07:32 36.7 C 64 18 161/75 H 96 Room Air 12/11/23 05:57 52 L 12/11/23 03:42 36.5 C 60 18 133/83 96 Room Air 12/10/23 22:59 36.6 C 63 20 141/84 H 95 Room Air 12/10/23 22:00 60 Exam (Neuro) Physical Exam: Neuro: Mental: AOx4, fluent speech, normal comprehension, no apraxia, no L/R confusion, no neglect CN: PERRL, Full EOM, symmetric face, intact sensation t/o face, midline T/U/P, 5/5 SCM/traps. Motor: no more tremor noted in his hands. normal tone and bulk, 5/5 t/o bilaterally Coord: very subtle dysmetry to FNF b/l (much improved from prior) Gait: walked around the [place] per pt without much problem. Impression: 63 yo male with overall picture consistent with ADEM, likely from the covid vaccine reaction. Pt feeling much improved with steroid tx. pt also with hyponatremia. It is interesting that his sodium is not coming up as expected. ADEM has been associated with hyponatremia caused by SIADH or CSWS (cerebral salt wasting syndrome). Improving hyponatremia. BNP normal, pt likely has SIADH and improving. Recommendations: -he can restart his BP meds, avoid hyper tension, prefer his SBP below 140. 5 days of IV steroids as planned (4/5 to day). since pt is improving well, i do not feel he will need IVIG.recommend po prednisone nicole after the 5 days of IV steroid, prednisone 60mg po daily for 3 days, 40mg daily x 3 days, 20mg po daily for 3 days and stop. repeat mri brain with RANI in about a month. pt prognosis is good, so expect pt will have full recovery. pending GQ1b antibody close monitoring for his hyponatremia. continue supportive care discussed with daughter in details. pt wants to go home soon as possible, he can likely go home after finishing the IV steroid (tuesday), it is ok to give his last dose of steroid on tuesday little early so he can be discharged at reasonable time (e.g. noon IV steroid infusion instead of late afternoon schedule). f/u with neurology clinic as outpt in about a month. for planned discharge tomorrow, no streneous activities for at least month, no vaccins, do not go near clouded places and potential exposure to infection, no hiking or going into the [place], avoid dehydration, plenty of fluid intake. please call again if new question. discussed with daughter in details about above. Chart reviewed I have spent more than 50% educating patient about potential diagnosis and neurological evaluation and coordinating care with patient's treatment team. Total time spent (including chart review and coordination of care): 50 min (this includes chart review). PG Care Time/CCT Total # of Minutes Spent Total Time Spent with Patient: Total time spent is greater than 50% in coordination of care (as documented) at patient's floor/unit and/or counseling patient: Coding Level of Care Code 40773 SUB INP/OBS CARE 3/50MIN Diagnoses Acute disseminated encephalomyelitis G04.00
[2023-12-11] MEDS: LOSARTAN POTASSIUM 25 MG TAB PO SCH (11:38)
--- NOTE | 2023-12-11 12:25 | Hospitalist Progress Note ---
Date of Service December 11, 2023 Assessment & Plan (1) Acute disseminated encephalomyelitis: Plan: Symptoms concerning for ADEM MRI showed findings confirmed ADEM as well Was started on 1 g Solu-Medrol IV daily on 12/07. To be continued for 5 days. MRI C-spine and T-spine are negative Patient had received COVID vaccine which could have led to ADEM Clinically improving in response to IV steroids. No need for IVIG. GQ 1B antibody pending PT/OT consulted Last dose of IV Solu-Medrol tomorrow 12/11. Will start p.o. prednisone 60 mg on Tuesday 12/12 and taper down. Patient would like to be discharged on Tuesday after receiving first dose of p.o. prednisone. (2) Meningitis: Plan: P/w fevers, weakness, headache x 1 week after receiving COVID booster vax. With SIADH. No clear source of infection initially LP obtained 12/06 and WBCs high at 47, glucose normal, protein high, BioFire negative, Gram stain on CSF neg for organisms, culture pending Blood cultures NGTD. No leukocytosis, UA negative for infection, Lyme titer, Anaplasmosis smear negative With the alternative diagnosis of ADEM, aseptic meningitis seems to be less likely. Will continue doxycycline until tick studies come back negative CT A/P from 12/03 nothing acute. CTA head and neck negative, CT head negative, CTA chest no PNA or PE and remains with TAA 4.3 cm -Follow [place] virus, lyme Ab, VDRL in CSF Positive EBV antibody suggest acute infection -Continue doxycycline 100mg PO twice daily for now. Will stop if tick studies negative: Anaplasma, early Nyla, Babesia, Rickettsia -Vancomycin and ceftriaxone discontinued since LP studies negative for bacterial infection -added Zofran prn nausea, Tylenol prn headache or fever (3) Fever: Plan: as above add tylenol prn fever Resolved No more fever spikes (4) Nausea vomiting and diarrhea: Plan: resolved now add Zofran prn (5) Acute hyponatremia: Plan: Serum osm low,Na+ low at 126 on arrival, urine osm > 300 and Na > 20 Cortisol appropriately high TSH normal Suspect SIADH due to meningitis/encephalitis or cerebral salt wasting syndrome Na+ stable at 132 Discontinued fluid restriction COntinue salt tabs 1g BID Sodium will need to be followed outpatient (6) Hypertension: Plan: Olmesartan was started recently by PCP and only took for 2 days Will resume olmesartan now that blood pressure is creeping up (7) Moderate obstructive sleep apnea: Plan: CPAP HS (8) Thrombocytopenia: Plan: mildly low plts, stable from baseline Platelet count normalized has mild splenomegaly on CT abd/pel recommend f/u with Heme as outpt (9) Depression: Plan: stable continue home Celexa (10) History of stroke: Plan: seen on old brain MRI, asymptomatic continue ASA,Crestor (11) GERD with esophagitis: Plan: continue PPI Plan VTE prophylaxis - Lovenox 40mg SQ daily Disposition - continued stay on med/tele Admission and Anticipated Discharge Date Admission Date: December 06, 2023 Subjective Patient feels much better overall. He has better balance. He was able to text today. His dexterity and coordination are coming back although he is not back to his baseline yet. He does not want to go home tomorrow. He wants to be converted to p.o. prednisone prior to discharge Review of Systems Review of Systems: All systems reviewed & are unremarkable except as noted in Subjective Physical Exam Physical Exam: General: Awake, conversant. Heart: S1, S2/regular rate and rhythm, no murmur rubs or gallops Lungs: Clear to auscultation bilaterally. Normal effort Abdomen: Soft/nontender/nondistended. No hepatosplenomegaly Extremities: No clubbing/cyanosis. No edema Behavior: Appropriate, cooperative Results & Data Results & Data Vital Signs (Past 12 Hours) Vital Signs Temp Pulse Pulse Resp BP Pulse Ox O2 Del Method 12/11/23 11:37 36.7 C 65 18 131/74 96 Room Air 12/11/23 07:32 36.7 C 64 18 161/75 H 96 Room Air 12/11/23 05:57 52 L 12/11/23 03:42 36.5 C 60 18 133/83 96 Room Air Laboratory Results Abnormal lab results 12/11/23 Range/Units 05:23 RBC 4.34 L (4.70-6.10) M/uL Hgb 13.7 L (14.0-18.0) g/dl Hct 36.1 L (42.0-52.0) % MCHC 38.0 H (32.0-36.0) g/dL Sodium 132 L (136-145) mmol/L BUN 25 H (6-23) mg/dl BUN/Creatinine Ratio 26.6 H (10-20) Glucose 151 H (70-99(Fasting)) mg/dl Calcium 8.2 L (8.6-10.3) mg/dl PG Care Time/CCT Total # of Minutes Spent Total Time Spent with Patient: Total time spent is greater than 50% in coordination of care (as documented) at patient's floor/unit and/or counseling patient: Coding Level of Care Code 76652 SUB INP/OBS CARE 2/35MIN Diagnoses Acute disseminated encephalomyelitis G04.00 Meningitis G03.9 Fever R50.9 Fever type: unspecified Nausea vomiting and diarrhea R11.2; R19.7 Acute hyponatremia E87.1 Hypertension I10 Moderate obstructive sleep apnea G47.33 Thrombocytopenia D69.6 Depression F32.9 History of stroke Z86.73 GERD with esophagitis K21.0 (3) Fever Fever type: unspecified Qualified Code(s): R50.9 - Fever, unspecified
[2023-12-11 18:23] LABS: CMV IgG Antibody <0.60 U/mL; CMV IgM Antibody <30.00 AU/mL; Ehrlichia chaff IgG Ab <1:64 (<1:64); Ehrlichia chaff IgM Ab <1:20 (<1:20); HBSAG NON-REACTIVE (NON-REACTIVE); Hepatitis A Antibody IgM NON-REACTIVE (NON-REACTIVE); Hepatitis B Core Antibody IgM NON-REACTIVE (NON-REACTIVE)
[2023-12-11] MEDS: IBUPROFEN 200 MG TAB PO STA (19:59)
[2023-12-11] MEDS: DOCUSATE SODIUM 100 MG CAP PO SCH (20:04)
[2023-12-11] MEDS: MELATONIN 3 MG TAB PO PRN (23:22)
[2023-12-12 06:50] LABS: Hematocrit (blood only) 35.2 % (42.0-52.0); Hemoglobin 12.8 g/dl (14.0-18.0); Mean Corpuscular Hemoglobin 30.7 pg (25.0-34.0); Mean Corpuscular Hgb Conc 36.4 g/dL (32.0-36.0); Mean Corpuscular Volume 84.4 fL (80.0-100.0); Mean Platelet Volume 11.3 fL (9.4-12.4); Platelet Count 126 K/uL (130-400); RDW Coefficient of Variation 12.2 % (11.5-14.5); RDW Standard Deviation 37.2 fL (36.4-46.3); Red Blood Count 4.17 M/uL (4.70-6.10); White Blood Count 6.11 K/ul (4.8-10.8)
[2023-12-12 07:11] LABS: BUN Creatinine Ratio 23.6 (10-20); Creatinine Clr Calc Pharmacy 99.6 ml/min; Est GFR (African American) 104.7 ml/min; Est GFR (Non-African American) 90.4 ml/min; Potassium 3.9 mmol/L (3.5-5.1)
[2023-12-12] MEDS: LOSARTAN POTASSIUM 25 MG TAB PO SCH (08:25)
[2023-12-12] MEDS: POLYETHYLENE (MIRALAX) 17 GM PACK PO PRN (08:48)
--- NOTE | 2023-12-12 14:13 | Hospitalist Progress Note ---
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 Today will be the last dose. Switch to p.o. prednisone starting tomorrow MRI C-spine and T-spine are negative Patient had received COVID vaccine which could have led to ADEM Clinically improving in response to IV steroids. No need for IVIG. GQ 1B antibody pending PT/OT consulted Last dose of IV Solu-Medrol tomorrow 12/11. Will start p.o. prednisone 60 mg on Tuesday 12/12 and taper down. Patient would like to be discharged on Tuesday after receiving first dose of p.o. prednisone. (2) Meningitis: Plan: P/w fevers, weakness, headache x 1 week after receiving COVID booster vax. With SIADH. No clear source of infection initially LP obtained 12/06 and WBCs high at 47, glucose normal, protein high, BioFire negative, Gram stain on CSF neg for organisms, culture pending Blood cultures NGTD. No leukocytosis, UA negative for infection, Lyme titer, Anaplasmosis smear negative With the alternative diagnosis of ADEM, aseptic meningitis seems to be less likely. Will continue doxycycline for 7 days or until tick studies come back negative CT A/P from 12/03 nothing acute. CTA head and neck negative, CT head negative, CTA chest no PNA or PE and remains with TAA 4.3 cm -Follow west nile virus, lyme Ab, VDRL in CSF Positive EBV antibody suggest acute infection -Continue doxycycline 100mg PO twice daily for 7 days. Will stop if tick studies negative: Anaplasma, early Nyla, Babesia, Rickettsia -Vancomycin and ceftriaxone discontinued since LP studies negative for bacterial infection (3) Fever: Plan: as above add tylenol prn fever Resolved No more fever spikes (4) Nausea vomiting and diarrhea: Plan: resolved now add Zofran prn (5) Acute hyponatremia: Plan: Serum osm low,Na+ low at 126 on arrival, urine osm > 300 and Na > 20 Cortisol appropriately high TSH normal Suspect SIADH due to meningitis/encephalitis or cerebral salt wasting syndrome Na+ stable at 132 Discontinued fluid restriction Discontinue salt tablets Sodium will need to be followed outpatient (6) Hypertension: Plan: Olmesartan was started recently by PCP and only took for 2 days Will resume olmesartan now that blood pressure is creeping up. Olmesartan changed to losartan as nonformulary here. Increase the dose to 25 mg for better blood pressure control (7) Moderate obstructive sleep apnea: Plan: CPAP HS (8) Thrombocytopenia: Plan: mildly low plts, stable from baseline has mild splenomegaly on CT abd/pel recommend f/u with Heme as outpt (9) Depression: Plan: stable continue home Celexa (10) History of stroke: Plan: seen on old brain MRI, asymptomatic continue ASA,Crestor (11) GERD with esophagitis: Plan: continue PPI Plan VTE prophylaxis - Lovenox 40mg SQ daily Disposition - continued stay on med/tele Admission and Anticipated Discharge Date Admission Date: December 06, 2023 Subjective Patient feels well overall. Walking better. Dexterity improving. Review of Systems Review of Systems: All systems reviewed & are unremarkable except as noted in Subjective Physical Exam Physical Exam: General: Awake, conversant. Heart: S1, S2/regular rate and rhythm, no murmur rubs or gallops Lungs: Clear to auscultation bilaterally. Normal effort Abdomen: Soft/nontender/nondistended. No hepatosplenomegaly Extremities: No clubbing/cyanosis. No edema Behavior: Appropriate, cooperative Results & Data Results & Data Vital Signs (Past 12 Hours) Vital Signs Temp Pulse Pulse Resp BP BP Pulse Ox 12/12/23 11:22 36.4 C L 60 16 142/93 H 95 12/12/23 08:04 36.6 C 59 L 16 155/93 H 94 12/12/23 06:01 54 L 12/12/23 03:18 36.5 C 51 L 16 167/94 H 97 O2 Del Method 12/12/23 11:22 Room Air 12/12/23 08:04 Room Air 12/12/23 06:01 12/12/23 03:18 Room Air Laboratory Results Abnormal lab results 12/12/23 Range/Units 06:01 RBC 4.17 L (4.70-6.10) M/uL Hgb 12.8 L (14.0-18.0) g/dl Hct 35.2 L (42.0-52.0) % MCHC 36.4 H (32.0-36.0) g/dL Plt Count 126 L (130-400) K/uL Sodium 134 L (136-145) mmol/L BUN/Creatinine Ratio 23.6 H (10-20) Glucose 146 H (70-99(Fasting)) mg/dl Calcium 8.0 L (8.6-10.3) mg/dl PG Care Time/CCT Total # of Minutes Spent Total Time Spent with Patient: Total time spent is greater than 50% in coordination of care (as documented) at patient's floor/unit and/or counseling patient: Coding Level of Care Code 04234 SUB INP/OBS CARE 2/35MIN Diagnoses Acute disseminated encephalomyelitis G04.00 Meningitis G03.9 Fever R50.9 Fever type: unspecified Nausea vomiting and diarrhea R11.2; R19.7 Acute hyponatremia E87.1 Hypertension I10 Moderate obstructive sleep apnea G47.33 Thrombocytopenia D69.6 Depression F32.9 History of stroke Z86.73 GERD with esophagitis K21.0 (3) Fever Fever type: unspecified Qualified Code(s): R50.9 - Fever, unspecified
[2023-12-13 06:36] LABS: Hematocrit (blood only) 33.6 % (42.0-52.0); Hemoglobin 12.5 g/dl (14.0-18.0); Mean Corpuscular Hemoglobin 31.1 pg (25.0-34.0); Mean Corpuscular Hgb Conc 37.2 g/dL (32.0-36.0); Mean Corpuscular Volume 83.6 fL (80.0-100.0); Platelet Count 139 K/uL (130-400); RDW Coefficient of Variation 12.1 % (11.5-14.5); RDW Standard Deviation 36.8 fL (36.4-46.3); Red Blood Count 4.02 M/uL (4.70-6.10); White Blood Count 6.56 K/ul (4.8-10.8)
[2023-12-13 07:04] LABS: BUN Creatinine Ratio 24.7 (10-20); Calcium 7.9 mg/dl (8.6-10.3); Creatinine Clr Calc Pharmacy 96.4 ml/min; Est GFR (African American) 106.7 ml/min; Est GFR (Non-African American) 92.1 ml/min; Potassium 3.8 mmol/L (3.5-5.1)
[2023-12-13] MEDS: predniSONE 20 MG TAB PO SCH (08:17)
[2023-12-13] MEDS: LOSARTAN POTASSIUM 25 MG TAB PO ONE (08:55)
[2023-12-13] MEDS ORDERED: LOSARTAN POTASSIUM 50 MG TAB PO SCH (09:00)
--- NOTE | 2023-12-13 10:12 | Discharge Summary ---
Date of Service December 13, 2023 Admission HPI Per Admitting Provider Prashant Gonzalez is a 63-year-old male who presents to the ER with generalized weakness and chills. Symptoms started following his physical on the when he received his COVID vaccine. Later that night around 9:30pm he started getting chills, generalized myalgias, generalized weakness and loose stool with a bad headache. Symptoms continued and he became nauseous with dry heaving and abdominal cramps throughout the night before he came to the ER on . In the ER he was febrile but WBC and procalcitonin were normal and blood cultures have subsequently turned out to be negative. Imaging with CXR, CT head and CT abdomen pelvis with no acute findings. He was also noticed to have a sodium of 129. He was given acetaminophen, ibuprofen and ondansetron in the ER and felt significantly improved. His concentration and confusion has become worse since and he has been shaking more today with associated lightheadedness. He has had reduced appetite but no dysphagia or odynophagia. He called his PCP office who couldn't see him the same day therefore he was advised to come to the ER. At his PCP office he was prescribed Keflex for his left 1st toe for possible paronychia but reports never taking this. His toe is no worse and not erythematous. He was also prescribed olmesartan for his blood pressure but reports only taking this for 2 days as he wasn't sure if that was causing his symptoms. Also planned to switch pantoprazole to famotidine although he is yet to do this and continues on pantoprazole. No other recent changes in medications - he has been on citalopram for years and onyl missed a couple of doses with this illness. On rosuvastatin for > 1 year. Admission Exam Per Admitting Provider Constitutional: well developed and + ill appearing (chills); no acute distress Eyes: PERRL, conjunctivae normal, anicteric sclerae ENMT: external ear and nose normal, oropharynx normal Neck: trachea midline, no thyromegaly Respiratory: + tachypneic Auscultation: lungs clear to auscultation bilaterally; breath sounds present, no diminished lung sounds, no crackles, no rales, no rhonchi and no wheezes Cardiovascular: RRR, no murmur, no edema Gastrointestinal (Abdomen): normal bowel sounds, soft, nontender, no hepatosplenomegaly Musculoskeletal: no cyanosis or clubbing, extremities motor strength 5/5 Skin: no rashes, warm and dry Neurologic: moves all extremities and awake; not confused Psychiatric: A+Ox3, euthymic affect Principal Diagnosis Acute disseminated encephalomyelitis Meningitis thought to be less likely Hyponatremia Discharge Exam General: Awake, conversant. Heart: S1, S2/regular rate and rhythm, no murmur rubs or gallops Lungs: Clear to auscultation bilaterally. Normal effort Abdomen: Soft/nontender/nondistended. No hepatosplenomegaly Extremities: No clubbing/cyanosis. No edema Behavior: Appropriate, cooperative Discharge Data Allergies Allergy/AdvReac Type Severity Reaction Status Date / Time sulfamethoxazole AdvReac Mild Nauseated Verified 12/06/23 17:42 trimethoprim AdvReac Mild Nauseated Verified 12/06/23 17:42 Consultations 12/06/23 17:08 ED Decision to Admit Stat 12/07/23 08:07 Consult Infectious Diseases Routine 12/07/23 16:41 Consult Neurology Routine Ordered Studies 12/06/23 15:15 CT angio chest PE protocol Stat CT angio head w con Stat CT angio neck with con Stat CT head/brain wo con Stat 12/07/23 13:30 IR lumbar puncture diagnostic Routine 12/08/23 09:36 MRI Brain [MR brain wo/w con] Urgent 12/09/23 00:00 MR cervical spine wo/w con Routine MR thoracic spine wo/w con Routine Hospital Course (1) Acute disseminated encephalomyelitis: Symptoms concerning for ADEM MRI showed findings confirmed ADEM as well Was started on 1 g Solu-Medrol IV daily on 12/07. Completed 5 days of Solu- Medrol IV MRI C-spine and T-spine are negative Patient had received COVID vaccine which could have led to ADEM Clinically improving in response to IV steroids. No need for IVIG. Patient was started on p.o. prednisone 60 mg today. It will be tapered down by 20 mg every 3 days GQ 1B antibody pending Discharge today (2) Meningitis: P/w fevers, weakness, headache x 1 week after receiving COVID booster vax. With SIADH. No clear source of infection initially LP obtained 12/06 and WBCs high at 47, glucose normal, protein high, BioFire negative, Gram stain on CSF neg for organisms, culture pending Blood cultures NGTD. No leukocytosis, UA negative for infection, Lyme titer, Anaplasmosis smear negative With the alternative diagnosis of ADEM, aseptic meningitis seems to be less likely. Completed 7 days of doxycycline. Per ID, can stop doxycycline now CT A/P from 12/03 nothing acute. CTA head and neck negative, CT head negative, CTA chest no PNA or PE and remains with TAA 4.3 cm -Follow west nile virus, lyme Ab, VDRL in CSF Positive EBV antibody suggest acute infection Follow-up tick studies: Anaplasma, Ehrlichia, Babesia, Rickettsia -Vancomycin and ceftriaxone discontinued since LP studies negative for bacterial infection (3) Fever: as above add tylenol prn fever Resolved No more fever spikes (4) Nausea vomiting and diarrhea: resolved now add Zofran prn (5) Acute hyponatremia: Serum osm low,Na+ low at 126 on arrival, urine osm > 300 and Na > 20 Cortisol appropriately high TSH normal Suspect SIADH due to meningitis/encephalitis or cerebral salt wasting syndrome Na+ stable at 132 Discontinued fluid restriction Discontinued salt tablets Sodium will need to be followed outpatient (6) Hypertension: Olmesartan was started recently by PCP and only took for 2 days Blood pressure creeping up while on steroids. Increase the dose of losartan to 50 mg. Will discharge on 50 mg of losartan (7) Moderate obstructive sleep apnea: CPAP HS (8) Thrombocytopenia: mildly low plts, stable from baseline Platelet count normalized has mild splenomegaly on CT abd/pel recommend f/u with Heme as outpt (9) Depression: stable continue home Celexa (10) History of stroke: seen on old brain MRI, asymptomatic continue ASA,Crestor (11) GERD with esophagitis: continue PPI while on steroids Plan VTE prophylaxis - Lovenox 40mg SQ daily Disposition - continued stay on med/tele Total Time Total Time Spent Total Time Spent (In Minutes): 35 Discharge Plan Discharge Items Patient Disposition: Home - Self-Care Reason For Visit: HYPONATREMIA Discharge Diagnosis: Acute disseminated encephalomyelitis Meningitis thought to be less likely Hyponatremia Activity: Resume your previous activity Non-emergency contact: Primary Care Provider Call non-emergency contact if: you have any medication questions and your symptoms worsen Follow-up/Referrals: Mick Dewitt MD [Primary Care Provider] - 11/14/24 1:00 pm (Please follow up at your existing appointment ) Renzo Forman MD [Physician] - (The Neuology office will call you with a follow up appointment) Diet: Heart Healthy Addtl Attending Provider Instructions: Advised to follow-up with PCP in 1 week Advised to follow-up with neurology in 1 month Pending Studies at Discharge: Yes Studies:: CSF West Nile virus, Lyme antibody, VDRL pending Tick studies pending: Anaplasma, Ehrlichia, Babesia, Rickettsia GQ1b Antibody pending Stand-Alone Forms: [facility] Medications and DC Order Prescriptions: New prednisone 20 mg tablet 20 mg PO DAILY Qty: 15 0RF Rx Instructions: 3 tablets for 2 day, then 2 tablets for 3 days, then 1 tablet for 3 days, then stop losartan 50 mg Tablet 50 mg PO DAILY 30 Days Qty: 30 0RF Continued tadalafil 5 mg tablet 5 mg PO DAILY Qty: 30 11RF famotidine 20 mg tablet 20 mg PO BID Qty: 180 3RF Rx Instructions: PER PT "NEVER STARTED" rosuvastatin [Crestor] 20 mg tablet 20 mg PO DAILY 90 Days Qty: 90 2RF aspirin 81 mg Tablet,Delayed Release (Dr/Ec) 81 mg PO QAM citalopram 10 mg tablet 10 mg PO HS pantoprazole 40 mg tablet,delayed release (DR/EC) 40 mg PO QAM Rx Instructions: PER PT "STOP TAKING THIS MED, START WITH FAMOTIDINE, NEVER SWITCHED". Discontinued cephalexin 500 mg capsule 500 mg PO BID Qty: 14 0RF Rx Instructions: PER PT "NEVER STARTED" olmesartan 5 mg tablet 5 mg PO DAILY Qty: 90 3RF Rx Instructions: PER PT "ONLY TOOK 2 DOSES, THEN STOPPED". Discharge Orders: Discharge Order (Routine); Ordered 12/13/23 Ordered By: Kj Santiago Admission Data Admit Date/Time: 12/06/23 17:21 Attending Provider: Kj Santiago Admit Provider: Diego Claudio Primary Care Provider: Mick Dewitt Other Providers: Diego Claudio; Araseli Jonas; Renzo Forman Other Interventions: Discharge Summary Assessment (RN) Last Done: 12/13/23 10:28 Coding Level of Care Code 65414 INP/OBS DISCH >30 MIN Diagnoses Acute disseminated encephalomyelitis G04.00 Meningitis G03.9 Fever R50.9 Fever type: unspecified Nausea vomiting and diarrhea R11.2; R19.7 Acute hyponatremia E87.1 Hypertension I10 Moderate obstructive sleep apnea G47.33 Thrombocytopenia D69.6 Depression F32.9 History of stroke Z86.73 GERD with esophagitis K21.0
[2023-12-15 17:36] LABS: CSF, LDH 35 U/L (<=25); EBV DNA Quant PCR Not Detected copies/mL; EBV DNA Quant Source CSF; Lyme DNA PCR CSF or Synovial Not Detected (Not Detected); Lyme DNA Source CSF; Lyme IgG Band Pattern CSF DNR; Lyme IgG CSF NO BANDS DETECTED; Lyme IgM Band Pattern CSF DNR; Lyme IgM CSF NO BANDS DETECTED; VDRL Qualitative CSF Nonreactive (Nonreactive)
== END 2023-12-13 11:12 | disposition home or self-care (01) | DRG 98 ==
LOC: ED 14:37 → SUATTDRO 17:21 → EDINP 17:21 → 2N 12-07 00:19